=== PATIENT | male | born 1980 | race Hispanic/Latino ===

== ENCOUNTER 2017-02-28 10:40 | Emergency (ER) | payer SELFPAY | END 2017-02-28 13:16 | disposition home or self-care (01) | LOC: ERS 10:40 | DX: J06.9 Acute upper respiratory infection, unspecified (principal); R21 Rash and other nonspecific skin eruption; I10 Essential (primary) hypertension; Z87.442 Personal history of urinary calculi | CPT/HCPCS: 99283 ==

== ENCOUNTER 2017-09-07 21:49 | Emergency (ER) | payer SELFPAY ==
[2017-09-07] MEDS ORDERED: Labetalol HCl 100 MG/20 ML VIAL ONE (22:18)
[2017-09-07 22:37] LABS: #Basophils 0.1 thou/uL (0.0-0.2); #Eosinphils 0.3 thou/uL (0.0-0.7); #Lymphocytes 4.2 thou/uL (1.20-3.40); #Monocytes 0.9 thou/uL (0.11-0.59); #Neutrophils 9.9 thou/uL (1.40-6.50); %Basophils 0.7 % (0.0-1.0); %Eosinophils 1.7 % (0.0-10.0); %Lymphocytes 27.3 % (21.0-51.0); %Monocytes 5.8 % (0.0-10.0); %Neutrophils 64.6 % (42.0-75.0); Hemoglobin 15.9 g/dL (14.0-18.0); Mean Corpuscular HGB CONC 34.3 g/dL (32.0-36.0); Mean Corpuscular Hemoglobin 31.7 pg (27.0-31.0); Mean Corpuscular Volume 92.4 fL (78.0-98.0); Mean Platelet Volume 7.2 fL (7.4-10.4); Platelet Count 280 thou/uL (130-400); Red Blood Cell (RBC) Count 5.02 mill/uL (4.70-6.10); White Blood Cell (WBC) Count 15.4 thou/uL (4.8-10.8)
[2017-09-07 22:59] LABS: ALT (SGPT) 33 U/L (8-55); AST (SGOT) 24 U/L (5-34); Alkaline Phosphatase 61 U/L (40-150); Anion Gap 13 mmol/L (10-20); BUN (Urea Nitrogen) 11 mg/dL (8.9-20.6); Bilirubin, Total 0.6 mg/dL (0.2-1.2); Calc. Creatinine Clearance 0 mL/min (70-130); Calcium 9.3 mg/dL (7.8-10.44); Carbon Dioxide 25 mmol/L (22-29); Chloride 102 mmol/L (98-107); Estimated GFR-MDRD 65; Globulin 3.4 g/dL (2.4-3.5); Glucose 119 mg/dL (70-105); Protein, Total 7.4 g/dL (6.0-8.3); Sodium 137 mmol/L (136-145)
--- NOTE | 2017-09-07 23:01 | RAD ---
RADIOGRAPH RIGHT ELBOW 4 VIEWS: 09/07/17 HISTORY: 36-year-old male with traumatic right elbow pain after fall. FINDINGS: There is no fracture, dislocation, degenerative changes, displaced fat pad sign, or any osseous abnor mality. IMPRESSION: Normal. POS: CHELLE
[2017-09-07 23:11] LABS: CKMB 1.3 ng/mL (0-6.6)
--- NOTE | 2017-09-07 23:37 | CT ---
CT BRAIN NONCONTRAST: DATE: 09/07/17 HISTORY: 36-year-old male status post acute head trauma due to fall, due to syncope. FINDINGS: There is no midline shift or any other mass effect. There is no evidence of acute intracranial hemor rhage, large cortical infarct, obstructive hydrocephalus. The calvarium is intact. There is an incid ental finding of a jackeline cisterna magna. IMPRESSION: No acute intracranial findings. natty [] POS: CHELLE
[2017-09-07] MEDS ORDERED: Potassium Chloride 20 MEQ TAB ONE (23:49)
== END 2017-09-08 01:00 | disposition home or self-care (01) ==
LOC: ERS 21:49
DX: S50.01XA Contusion of right elbow, initial encounter (principal); E87.6 Hypokalemia; I10 Essential (primary) hypertension; R55 Syncope and collapse; W18.30XA Fall on same level, unspecified, initial encounter
CPT/HCPCS: 70450; 80053; 82553; 84484; 85025; 93005; 96361; 96374; 96375; J2270

== ENCOUNTER 2018-06-19 21:10 | Inpatient (IN) | payer SELFPAY ==
[2018-06-19] MEDS ORDERED: Morphine 2 MG/ML SYRINGE ONE (21:19)
[2018-06-19] MEDS ORDERED: Ondansetron PF 4 MG/2 ML Vial ONE ×2 (21:19→23:44)
[2018-06-19] MEDS ORDERED: Nitroglycerin 2% Ointment 1 INCH/1 GM Packet ONE (21:19)
[2018-06-19] MEDS ORDERED: Aspirin Chewable 81 MG TAB ONE (21:19)
[2018-06-19 21:35] LABS: Hemoglobin 17.1 g/dL (14.0-18.0); Mean Corpuscular HGB CONC 34.6 g/dL (32.0-36.0); Mean Corpuscular Hemoglobin 31.3 pg (27.0-31.0); Mean Corpuscular Volume 90.4 fL (78.0-98.0); Mean Platelet Volume 7.8 fL (7.4-10.4); Platelet Count 326 thou/uL (130-400); Red Blood Cell (RBC) Count 5.48 mill/uL (4.70-6.10); White Blood Cell (WBC) Count 16.8 thou/uL (4.8-10.8)
[2018-06-19 21:42] LABS: INR-International Normal Ratio 0.9; PTT 29.6 SEC (22.9-36.1); Prothrombin Time 12.5 SEC (12.0-14.7)
--- NOTE | 2018-06-19 21:43 | RAD ---
CHEST ONE VIEW: 06/19/18 HISTORY: Chest pain. STEMI alert. COMPARISON: Radiograph 09/15/14. FINDINGS: The lungs are mildly hypoinflated with vascular crowding. Heart size is mildly enlarged. No pneumotho rax. No acute displaced rib fractures. IMPRESSION: Mild lung hypoinflation. Defibrillator pad projects over the right hemithorax. POS: HOME
[2018-06-19 21:49] LABS: Lymphocytes 17 % (21-51); MDiff Complete? YES; Monocytes 2 % (0-10); Neutrophil 71 % (42-75); Platelet Morphology Comment Appears Adequate; RBC Morphology Normal; Reactive Lymphocytes 10 % (0-10)
[2018-06-19 21:59] LABS: ALT (SGPT) 27 U/L (8-55); AST (SGOT) 29 U/L (5-34); Albumin 4.4 g/dL (3.5-5.0); Alkaline Phosphatase 71 U/L (40-150); Anion Gap 13 mmol/L (10-20); BUN (Urea Nitrogen) 19 mg/dL (8.9-20.6); Bilirubin, Total 0.5 mg/dL (0.2-1.2); Calc. Creatinine Clearance 0 mL/min (70-130); Calcium 10.4 mg/dL (7.8-10.44); Carbon Dioxide 29 mmol/L (22-29); Chloride 104 mmol/L (98-107); Estimated GFR-MDRD 54; Globulin 3.6 g/dL (2.4-3.5); Glucose 102 mg/dL (70-105); Potassium 3.2 mmol/L (3.5-5.1); Sodium 143 mmol/L (136-145)
[2018-06-19] MEDS ORDERED: hydrALAZINE 20 MG/ML VIAL ONE (23:40)
[2018-06-20] MEDS ORDERED: Labetalol HCl 100 MG/20 ML VIAL ONE (00:16)
[2018-06-20] MEDS ORDERED: Labetalol 5 MG/ML SYRINGE (IV ROOM) SLOW IVP PRN (00:18)
[2018-06-20] MEDS ORDERED: hydrALAZINE 20 MG/ML VIAL SLOW IVP PRN ×3 (00:18→12:41)
[2018-06-20 01:01] LABS: Troponin I 0.649 ng/mL (< 0.028)
[2018-06-20] MEDS ORDERED: Ondansetron PF 4 MG/2 ML Vial IVP PRN ×2 (02:08→12:41)
[2018-06-20] MEDS ORDERED: Acetaminophen 325 MG TAB PO PRN (02:08)
[2018-06-20] MEDS ORDERED: Ondansetron ODT 4 MG TAB SL PRN (02:08)
[2018-06-20 02:23] VITALS: BMI 40.8
[2018-06-20] MEDS: Lorazepam 1 MG TAB PO PRN ×2 (03:02→14:34)
[2018-06-20 07:14] LABS: Troponin I 2.306 ng/mL (< 0.028)
[2018-06-20] MEDS ORDERED: NIFEdipine XL 60 MG TAB PO SCH (09:09)
[2018-06-20] MEDS ORDERED: Ondansetron ODT 4 MG TAB PO PRN (12:41)
[2018-06-20] MEDS ORDERED: Nitroglycerin 0.4 MG TAB (25 Tab Bottle) PO PRN (12:41)
[2018-06-20] MEDS ORDERED: Lisinopril 5 MG TAB PO SCH (13:00)
[2018-06-20] MEDS: Nitroglycerin 2% Ointment 1 INCH/1 GM Packet TOP SCH ×2 (14:35→21:42)
[2018-06-20] MEDS ORDERED: Diazepam 5 MG TAB PO SCH (15:30)
[2018-06-20] MEDS ORDERED: Communication Order-Pharmacy FS SCH (15:30)
[2018-06-20] MEDS ORDERED: Clopidogrel Bisulfate 300 MG TAB PO SCH (16:00)
--- NOTE | 2018-06-20 16:23 | CON ---
DATE OF CONSULTATION: 06/20/2018 REASON FOR CONSULTATION: Chest pain, increased troponin level. HISTORY OF PRESENT ILLNESS: Mr. Riggs is a very pleasant 37-year-old gentleman. He was working out. He started to have discomfort in his upper back and then came to his chest, felt like someone standing on his chest. The symptoms gradually worsened. He came here to the emergency room. He is severely hypertensive. He was given medicines to lower the blood pressure. While he is here, he has received labetalol, nitrates, as well as other beta-blockers. He is resting comfortably now, but did have an increased troponin level. Initially, it was thought that he had an ST-elevation myocardial infarction, but reviewing previous EKGs, looked unchanged. The patient does not smoke or use tobacco products. PAST MEDICAL HISTORY: He has taken blood pressure medicines in the past, but not recently. REVIEW OF SYSTEMS: CONSTITUTIONAL: No significant weight gain or loss. VISION: No changes. HEARING: No changes. PULMONARY: No cough or wheezing. GASTROINTESTINAL: No nausea, vomiting or diarrhea. SKIN: No rashes. NEUROLOGIC: No unilateral weakness or numbness. PSYCHIATRIC: No unusual depression or anxiety. HEMATOLOGIC: No unusual bruising. GENITOURINARY: No burning with urination. FAMILY HISTORY: Negative for heart disease at a young age. PHYSICAL EXAMINATION: GENERAL: This is a pleasant young man, resting comfortably, in no distress. VITAL SIGNS: He had had extremely high blood pressures here. Blood pressures have been recorded 249/120 and 250/140. NECK: Neck veins normal. Carotid, normal upstrokes. No bruits. LUNGS: Clear. No wheezing. CARDIAC: Normal S1, normal S2. There is no murmur, rub or gallop. ABDOMEN: Obese and nontender. EXTREMITIES: No clubbing or cyanosis or edema. He has good peripheral pulses. Strong posterior tibial and dorsalis pedis pulses. DIAGNOSTIC DATA: EKG, sinus rhythm, left ventricular hypertrophy with repolarization changes. PERTINENT LABORATORY DATA: Hemoglobin 17.1. The troponin peak was 2.3. ASSESSMENT: 1. Hypertensive emergency. 2. Chronically uncontrolled high blood pressure. Reviewed previous emergency room visits. He has extremely high blood pressures on all these visits. 3. Owg-HB-ymhtbursk infarction related to demand ischemia versus demand ischemia plus underlying coronary artery disease. 4. Renal insufficiency, estimated GFR is 54. PLAN: 1. He is to receive. a. Metoprolol. b. Nifedipine. c. Aspirin. 2. In view of the increased troponin, recommend cardiac catheterization for definitive test. Assessed risk of stroke, heart attack, iodine allergy, loss of blood supply to leg or kidney, stent thrombosis, stent restenosis. He understands and wished to proceed. Blood pressure is improved at 177/93. 3. We will recheck laboratory work tomorrow morning. Job ID: [id number]
[2018-06-20] MEDS: Acetaminophen 325 MG TAB PO PRN (16:55)
[2018-06-20] MEDS: Aspirin 325 mg Enteric Coated Tablet PO SCH (17:24)
[2018-06-20] MEDS ORDERED: Aspirin Chewable 81 MG TAB ONE (18:00)
--- NOTE | 2018-06-20 18:40 | HP ---
The patient's primary care is through the [facility]. CHIEF COMPLAINT: "I started having back pain yesterday." HISTORY OF PRESENT ILLNESS: Mr. Riggs is a very pleasant 37-year-old gentleman, who has a history of hypertension. He was in his usual state of health until yesterday evening. He had gone to the gym and was working out and got back home. Later on that evening, he says around 0845, he started feeling a hot feeling in his back, and he said he noticed it started to radiate to the front of his chest. He also noted that his heart was beating fast. He also got nauseated and was feeling dizzy off and on, and his symptoms did not go away, so that around later on that evening, he went to the emergency room. By that time, his pain in the back had gone up to about a 9/10. He says that they gave him some medications in the ER, and the pain went down to a 1/10. When I am seeing him this afternoon, he says that the pain has completely gone away. He says he has never had anything like this happened before. When he was in the emergency room, it was noted he had some EKG changes with some ST-segment depression inferiorly and some lateral ST-segment elevation, and his troponin at that time was slightly elevated, and he is being admitted for further recommendations. REVIEW OF SYSTEMS: All systems were reviewed and are negative except for that mentioned in the history of present illness. PAST MEDICAL HISTORY: Significant for hypertension and asthma. PAST SURGICAL HISTORY: He has had lithotripsy before. ALLERGIES: NO KNOWN DRUG ALLERGIES. SOCIAL HISTORY: He is , has 2 children. He drinks about 8 to 9 beers a week. Denies any tobacco use or any smoking. FAMILY HISTORY: Significant for hypertension and diabetes mellitus. His mother has a history of coronary artery disease and had a stent placed. There are also numerous aunts and uncles on his mother's side, who had coronary artery disease and bypass surgery. CURRENT MEDICATIONS: Include lisinopril and hydrochlorothiazide. PHYSICAL EXAMINATION: GENERAL: He is alert and oriented. He appears to be in no acute distress. He is well developed and well nourished. He is obese. His height is 5 feet 6 inches, and he weighs 253 pounds. BMI was 40.9. HEENT: Pupils are equal, round, and reactive to light. Extraocular muscles are intact. Sclerae are anicteric. Throat; no erythema, no exudates. NECK: No adenopathy. No bruits. LUNGS: Clear to auscultation. There is no wheezing. No rales. No rhonchi. CARDIOVASCULAR: He had normal S1 and S2. There is no S3 or S4. No murmurs, clicks, or rubs. ABDOMEN: Obese. It is soft, nontender, and nondistended. Positive for bowel sounds. There is no rebound. No guarding. No organomegaly. EXTREMITIES: There is no clubbing or cyanosis. No edema. No calf tenderness. No joint effusions. NEUROLOGIC: Essentially nonfocal. SKIN AND INTEGUMENT: No skin changes. No rash. LABORATORY RESULTS: Sodium was 143, potassium 3.2, chloride is 104, CO2 is 29, BUN of 19, creatinine of 1.46, glucose is 102. White blood cell count was 16.8, hemoglobin 17.1, hematocrit is 49.5, platelet count was 326. INR 0.9. On his EKG, again he had ST-segment depression in leads II, III, and aVF as well as some ST-segment elevation in leads V1 and V2. ASSESSMENT: 1. This is a pleasant 37-year-old gentleman, who presents with back pain as well as diaphoresis and shortness of breath. He has some EKG changes suspicious for an acute myocardial infarction, and his troponin was slightly elevated. He will be admitted to telemetry. We will start him on aspirin, nitrates, and beta-blockers as tolerated. Cardiology had already been consulted from the ER, and an echocardiogram has been ordered. We will also check a lipid panel, and further recommendations to follow with regard to the EKG changes. 2. Hypertension. His blood pressure is currently poorly controlled. We will start him back on an RONI inhibitor in addition to what has already been started as well as p.r.n. medications. Job ID: [id number]
[2018-06-20] MEDS: Metoprolol Tartrate 25 MG TAB PO SCH (21:42)
[2018-06-20] MEDS: Atorvastatin Calcium 40 MG TAB PO SCH (21:42)
[2018-06-20] MEDS: Famotidine 20 MG TAB PO SCH (21:42)
[2018-06-21] MEDS: Famotidine 20 MG TAB PO SCH ×2 (04:49→19:44)
[2018-06-21] MEDS: Metoprolol Tartrate 25 MG TAB PO SCH ×2 (04:49→19:44)
[2018-06-21] MEDS: NIFEdipine XL 60 MG TAB PO SCH (04:49)
[2018-06-21] MEDS: Nitroglycerin 2% Ointment 1 INCH/1 GM Packet TOP SCH ×2 (04:50→14:36)
[2018-06-21] MEDS: Sodium Chloride 0.9% 1,000 ML IV SCH ×2 (05:28→14:36)
[2018-06-21 06:06] LABS: Anion Gap 11 mmol/L (10-20); BUN (Urea Nitrogen) 14 mg/dL (8.9-20.6); Calc. Creatinine Clearance 131 mL/min (70-130); Calcium 9.7 mg/dL (7.8-10.44); Carbon Dioxide 30 mmol/L (22-29); Cardiac Risk 4.2 (Less than 4.5); Chloride 104 mmol/L (98-107); Cholesterol 178 mg/dl (< 200 Desired); Estimated GFR-MDRD 66; Glucose 96 mg/dL (70-105); HDL Cholesterol 42 mg/dL (>60 Neg Risk); LDL Cholesterol, Calculated 123 mg/dL; Potassium 3.5 mmol/L (3.5-5.1); Sodium 141 mmol/L (136-145); Triglycerides 64 mg/dL (Less than 150)
[2018-06-21] MEDS ORDERED: Midazolam HCl 2 mg/2 ml Vial ONE (08:42)
[2018-06-21] MEDS ORDERED: Fentanyl 100 MCG/2 ML VIAL ONE (08:42)
[2018-06-21] MEDS ORDERED: NIFEdipine XL 60 MG TAB PO SCH (09:00)
[2018-06-21] MEDS ORDERED: Lisinopril 5 MG TAB PO SCH (09:00)
[2018-06-21] MEDS ORDERED: Ondansetron PF 4 MG/2 ML Vial ONE (09:02)
[2018-06-21] MEDS ORDERED: Atropine Sulfate 1 mg/1 ml Vial ONE (09:03)
[2018-06-21] MEDS ORDERED: Atropine Sulfate 1 mg/10 ml Syringe ONE (09:05)
[2018-06-21] MEDS ORDERED: Sodium Chloride 0.9% 200 ML IV PRN (09:40)
[2018-06-21] MEDS ORDERED: Acetaminophen/Codeine 30-300mg Tablet PO PRN ×2 (09:40)
[2018-06-21] MEDS ORDERED: Nitroglycerin 0.4 MG TAB (25 Tab Bottle) SL PRN (09:40)
[2018-06-21] MEDS ORDERED: Iopamidol 370 76% 100 ML VIAL ONE (10:20)
[2018-06-21] MEDS: Acetaminophen 325 MG TAB PO PRN ×2 (11:50→18:52)
--- NOTE | 2018-06-21 15:28 | PDOC.PN ---
- Subjective Encounter Start Date: 06/21/18 Encounter Start Time: 15:27 Mr. Riggs was seen today in follow-up of NSTEMI. He says he is feeling better. He denies having any chest pain. He denies back pain or dyspnea. - Objective Resuscitation Status - Order Detail: 06/20/18 12:37 Resuscitation Status Routine Resuscitation Status: FULL: Full Resuscitation MAR Reviewed: Yes Vital Signs & Weight: Vital Signs (12 hours) Temp Pulse Resp BP BP BP Pulse Ox 06/21/18 11:42 98.2 F 73 18 152/72 H 96 06/21/18 10:05 98.0 F 67 18 135/74 135/74 96 06/21/18 09:41 97 06/21/18 07:27 98.3 F 72 20 142/80 H 96 06/21/18 04:49 80 06/21/18 04:19 97.5 F L 80 16 126/76 95 Weight Admit Weight 253 lb 4.8 oz Weight 253 lb 4.8 oz I&O: 06/20/18 06/21/18 06/22/18 06:59 06:59 06:59 Intake Total 100 620 Output Total 250 1000 Balance -150 -380 Result Diagrams: 06/19/18 21:26 06/21/18 04:45 Phys Exam - Physical Examination HEENT: PERRLA Respiratory: no wheezing, no rales, no rhonchi, clear to auscultation bilateral Cardiovascular: RRR, no significant murmur, no rub Gastrointestinal: soft, non-tender, no distention, positive bowel sounds Musculoskeletal: no edema Dx/Plan (1) NSTEMI (non-ST elevated myocardial infarction) Code(s): I21.4 - NON-ST ELEVATION (NSTEMI) MYOCARDIAL INFARCTION Status: Acute (2) Hypertension Code(s): I10 - ESSENTIAL (PRIMARY) HYPERTENSION Status: Chronic (3) Obesity, Class III, BMI 40-49.9 (morbid obesity) Code(s): E66.01 - MORBID (SEVERE) OBESITY DUE TO EXCESS CALORIES Status: Chronic - Plan * NSTEMI- the patient's cath results were noted * Await further recommendations from Cardiology * HTN- blood pressure is better controlled * Dyslipidemia- continue Lipitor.
[2018-06-21] MEDS: Aspirin 325 mg Enteric Coated Tablet PO SCH (16:47)
[2018-06-21] MEDS: Atorvastatin Calcium 40 MG TAB PO SCH (19:44)
[2018-06-22] MEDS: NIFEdipine XL 60 MG TAB PO SCH (05:41)
[2018-06-22 07:11] VITALS: TEMP 98.2
[2018-06-22] MEDS ORDERED: Lisinopril 10 MG TAB PO SCH (09:00)
[2018-06-22] MEDS ORDERED: Clopidogrel Bisulfate 75 MG TAB PO SCH (09:00)
--- NOTE | 2018-06-22 09:02 | PRG ---
DATE OF SERVICE: 06/22/2018 SUBJECTIVE: Mr. Riggs is doing well. No further chest pain or pressure. OBJECTIVE: VITAL SIGNS: His blood pressure is 160/99, earlier was 143/89 and pulse 64. LUNGS: Clear. CARDIAC: Normal S1, normal S2. LABORATORY DATA: Pertinent laboratories; LDL was 123 on the 11th after being in the hospital a couple of days, potassium is 3.5 yesterday and the creatinine had improved to 1.23. ASSESSMENT: 1. Status post non ST elevation myocardial infarction. Peak troponin 2.306. 2. Hypercholesterolemia. 3. Severe hypertension. 4. Renal insufficiency, improved. 5. Cardiac catheterization, medical therapy, most appropriate at this time. PLAN: 1. The patient is on aspirin 325 mg a day. 2. Clopidogrel 75 mg a day. 3. Atorvastatin 40 mg a day. 4. Lisinopril 10 mg a day. 5. Metoprolol tartrate 25 mg twice a day. 6. Procardia XL 60 mg a day, dose could be increased if needed to 90 if needed for blood pressure control. 7. The patient initially came to the hospital with hypertensive urgency/emergency and chest pain. Did have increased troponin levels, but had an extremely high blood pressure as is outlined in the chart. Cardiac catheterization revealed the LAD looks like about a 60-65% lesion with a diagonal branch at the ostium in the same location 90% that was probably the source of the non ST elevation infarction of the diagonal branch. Medical therapy at this time. If continues to have angina, consideration for stenting of the LAD could be given, but almost certainly this would occlude the diagonal branch. Medical therapy should be the strategy at this point. Incidentally, the patient did have a vagal episode while placing the sheath yesterday, but tolerated the cardiac catheterization otherwise well. Job ID: [id number]
[2018-06-22] MEDS: Famotidine 20 MG TAB PO SCH (09:13)
[2018-06-22] MEDS: Metoprolol Tartrate 25 MG TAB PO SCH (09:13)
[2018-06-22 12:16] VITALS: BP 143/89
--- NOTE | 2018-06-22 14:22 | PDOC.PN ---
- Subjective Encounter Start Date: 06/22/18 Encounter Start Time: 14:20 Mr. Rincon was seen today in follow-up of NSTEMI. He does not have any complaints this AM. He denies chest pain or shortness of breath. - Objective Resuscitation Status - Order Detail: 06/20/18 12:37 Resuscitation Status Routine Resuscitation Status: FULL: Full Resuscitation MAR Reviewed: Yes Vital Signs & Weight: Vital Signs (12 hours) Temp Pulse Resp BP BP Pulse Ox 06/22/18 12:13 71 20 143/89 H 99 06/22/18 07:08 98.2 F 65 18 160/99 H 96 06/22/18 05:41 63 06/22/18 04:20 97.6 F 63 18 143/89 H 96 Weight Admit Weight 253 lb 4.8 oz Weight 253 lb 4.8 oz I&O: 06/21/18 06/22/18 06/23/18 06:59 06:59 06:59 Intake Total 620 1720 Output Total 1000 1550 Balance -380 170 Result Diagrams: 06/19/18 21:26 06/21/18 04:45 Phys Exam - Physical Examination HEENT: PERRLA Respiratory: no wheezing, no rales, no rhonchi, clear to auscultation bilateral Cardiovascular: RRR, no significant murmur, no rub Gastrointestinal: soft, non-tender, no distention, positive bowel sounds Musculoskeletal: no edema Dx/Plan (1) NSTEMI (non-ST elevated myocardial infarction) Code(s): I21.4 - NON-ST ELEVATION (NSTEMI) MYOCARDIAL INFARCTION Status: Acute (2) Hypertension Code(s): I10 - ESSENTIAL (PRIMARY) HYPERTENSION Status: Chronic (3) Obesity, Class III, BMI 40-49.9 (morbid obesity) Code(s): E66.01 - MORBID (SEVERE) OBESITY DUE TO EXCESS CALORIES Status: Chronic - Plan * NSTEMI- clinically improved * He is stable for discharge home.
--- NOTE | 2018-06-23 12:41 | DIS ---
DATE OF ADMISSION: 06/20/2018 DATE OF DISCHARGE: 06/22/2018 PRIMARY CARE: At the [facility]. DISCHARGE DISPOSITION: Home. PRIMARY DISCHARGE DIAGNOSES: 1. Non-ST segment elevation myocardial infarction. 2. Hypertensive urgency. 3. Hypertension. 4. Dyslipidemia. 5. Morbid obesity. DISCHARGE MEDICATIONS: Include; 1. Nitrostat 0.4 mg sublingual p.r.n. 2. Procardia XL 60 mg daily. 3. Metoprolol 25 mg twice daily. 4. Lisinopril 10 mg daily. 5. Plavix 75 mg daily. 6. Lipitor 40 mg at bedtime. 7. Aspirin 325 mg daily. PROCEDURES: Procedures done during the admission: The patient had a cardiac catheterization and this revealed a 60% stenosis of the LAD, 90% stenosis of the first diagonal, and 100% stenosis of the mid circumflex. He had a normal ejection fraction. The patient also had an echocardiogram, in which the ejection fraction was estimated at 55% to 60%. There was moderate to severe concentric left ventricular hypertrophy. The left atrium was [id number] dilated. There was some mild aortic stenosis. CODE STATUS: Full code. ALLERGIES: NO KNOWN DRUG ALLERGIES. HOSPITAL COURSE: Mr. Riggs is a pleasant 37-year-old gentleman, who presented to the emergency room, complaining of severe back pain and burning after he was doing some exercise at the gym. He said the symptoms got progressively worse and then sought medical attention. He was brought in due to concerns for possible anginal equivalent and his troponin began to trend upward. He was found to have a non ST-segment [place], and Cardiology was consulted. He underwent cardiac catheterization, showing some moderate 3-vessel disease. It was recommended that he be treated medically, and dietary changes and exercise were discussed as well as management of blood pressure as this was noted to be quite elevated initially. He was then placed on Procardia and metoprolol as well as lisinopril. His blood pressure improved down to 143/89 and 135/74, and he was able to be subsequently discharged home, to have close outpatient followup and to see Dr. Simental in 1 month. Job ID: [id number]
--- NOTE | 2018-06-23 15:37 | EKG ---
Test Reason : Blood Pressure : / mmHG Vent. Rate : 094 BPM Atrial Rate : 094 BPM P-R Int : 166 ms QRS Dur : 090 ms QT Int : 356 ms P-R-T Axes : 039 020 -46 degrees QTc Int : 445 ms Normal sinus rhythm Anteroseptal infarct , possibly acute T wave abnormality, consider inferior ischemia ACUTE UT / STEMI Abnormal ECG ST elevation/UT called at 21:17 Confirmed by MONICA MCADAMS ([id number]), book or script editor LUKAS LUQUE ([id number]) on 06/23/2018 3:36:53 PM Referred By: Confirmed By:MONICA MCADAMS
--- NOTE | 2018-06-23 15:38 | EKG ---
Test Reason : Blood Pressure : / mmHG Vent. Rate : 102 BPM Atrial Rate : 102 BPM P-R Int : 180 ms QRS Dur : 100 ms QT Int : 374 ms P-R-T Axes : 060 024 139 degrees QTc Int : 487 ms Sinus tachycardia Marked ST abnormality, possible inferior subendocardial injury Abnormal ECG Improvement of ischemic changes from previous EKG today Confirmed by OMNICA MCADAMS ([id number]), magazine editor LUKAS LUQUE ([id number]) on 06/23/2018 3:37:46 PM Referred By: Confirmed By:MONICA MCADAMS
== END 2018-06-22 13:17 | disposition home or self-care (01) | DRG 281 ==
LOC: ERS 21:10 → 2NO 21:55
PROVIDERS: ADMIT Family Medicine; ATTEND Family Medicine
PROC: 4A023N7 Measurement of Cardiac Sampling and Pressure, Left Heart, Percutaneous Approach (ICD-10-PCS; principal; 2018-06-21)
PROC: B2151ZZ Fluoroscopy of Left Heart using Low Osmolar Contrast (ICD-10-PCS; 2018-06-21)
PROC: B2111ZZ Fluoroscopy of Multiple Coronary Arteries using Low Osmolar Contrast (ICD-10-PCS; 2018-06-21)
DX: I21.4 Non-ST elevation (NSTEMI) myocardial infarction (principal); I16.1 Hypertensive emergency; Z68.41 Body mass index [BMI] 40.0-44.9, adult; I10 Essential (primary) hypertension; J45.909 Unspecified asthma, uncomplicated; E78.00 Pure hypercholesterolemia, unspecified; N28.9 Disorder of kidney and ureter, unspecified; E66.01 Morbid (severe) obesity due to excess calories; I16.0 Hypertensive urgency; Z79.899 Other long term (current) drug therapy
CPT/HCPCS: 36415; 71045; 76942; 80048; 80053; 80061; 84484; 85025; 85610; 85730; 93005; 93306; 93458; 93798; 94760; 96374; 96375; 99152; 99153; C1769; J0360; J0461; J1644; J2250; J2270; J2405; J3010; Q0162; Q9967

== ENCOUNTER 2018-10-23 19:16 | Emergency (ER) | payer SELFPAY ==
--- NOTE | 2018-10-23 20:01 | RAD ---
XR Chest 1 View Portable HISTORY: Syncope COMPARISON: 06/19/2018 study FINDINGS: Heart size is enlarged. The lungs are clear of infiltrates. No signs of failure. No bony fi ndings. IMPRESSION: Minimal cardiomegaly considering portable technique.
[2018-10-23 20:15] LABS: #Basophils 0.1 thou/uL (0.0-0.2); #Eosinphils 0.2 thou/uL (0.0-0.7); #Lymphocytes 5.2 thou/uL (1.20-3.40); #Monocytes 0.9 thou/uL (0.11-0.59); %Basophils 0.6 % (0.0-1.0); %Eosinophils 1.3 % (0.0-10.0); %Lymphocytes 33.8 % (21.0-51.0); %Monocytes 5.9 % (0.0-10.0); %Neutrophils 58.4 % (42.0-75.0); Hemoglobin 17.7 g/dL (14.0-18.0); Mean Corpuscular HGB CONC 34.9 g/dL (32.0-36.0); Mean Corpuscular Hemoglobin 31.8 pg (27.0-31.0); Mean Platelet Volume 6.9 fL (7.4-10.4); Platelet Count 319 thou/uL (130-400); RBC Distribution Width 14.1 % (11.5-14.5); Red Blood Cell (RBC) Count 5.56 mill/uL (4.70-6.10); White Blood Cell (WBC) Count 15.4 thou/uL (4.8-10.8)
[2018-10-23] MEDS ORDERED: cloNIDine 0.1 MG TAB ONE (20:33)
[2018-10-23] MEDS ORDERED: Aspirin 325 MG TAB ONE (20:33)
[2018-10-23 20:38] LABS: ALT (SGPT) 24 U/L (8-55); AST (SGOT) 24 U/L (5-34); Albumin 4.8 g/dL (3.5-5.0); Alkaline Phosphatase 89 U/L (40-150); Anion Gap 17 mmol/L (10-20); BUN (Urea Nitrogen) 11 mg/dL (8.9-20.6); Bilirubin, Total 0.6 mg/dL (0.2-1.2); CK (CPK) 154 U/L (30-200); Calc. Creatinine Clearance 0 mL/min (70-130); Calcium 10.3 mg/dL (7.8-10.44); Carbon Dioxide 20 mmol/L (22-29); Chloride 105 mmol/L (98-107); Estimated GFR-MDRD 69; Glucose 96 mg/dL (70-105); Lipase 59 U/L (8-78); Potassium 3.3 mmol/L (3.5-5.1); Protein, Total 8.8 g/dL (6.0-8.3); Sodium 139 mmol/L (136-145)
== END 2018-10-23 21:53 | disposition left against medical advice (07) ==
LOC: ERS 19:16
DX: R07.9 Chest pain, unspecified (principal); I25.10 Atherosclerotic heart disease of native coronary artery without angina pectoris; I10 Essential (primary) hypertension; I25.2 Old myocardial infarction; Z79.82 Long term (current) use of aspirin; Z79.899 Other long term (current) drug therapy; Z79.01 Long term (current) use of anticoagulants
CPT/HCPCS: 71045; 80053; 82550; 83690; 83735; 84484; 85025; 93005

== ENCOUNTER 2018-10-24 18:18 | Observation (INO) | payer SELFPAY ==
[~2018-10-24 18:18] MED LIST: ISOVUE-370 76%-LOCM 1 ML ONE
[2018-10-24 18:45] LABS: #Basophils 0.1 thou/uL (0.0-0.2); #Eosinphils 0.1 thou/uL (0.0-0.7); #Lymphocytes 3.8 thou/uL (1.20-3.40); #Neutrophils 8.9 thou/uL (1.40-6.50); %Basophils 0.5 % (0.0-1.0); %Eosinophils 0.7 % (0.0-10.0); %Lymphocytes 27.2 % (21.0-51.0); %Monocytes 7.3 % (0.0-10.0); %Neutrophils 64.3 % (42.0-75.0); Hemoglobin 16.9 g/dL (14.0-18.0); Mean Corpuscular HGB CONC 35.4 g/dL (32.0-36.0); Mean Corpuscular Hemoglobin 32.1 pg (27.0-31.0); Mean Corpuscular Volume 90.6 fL (78.0-98.0); Mean Platelet Volume 6.6 fL (7.4-10.4); Platelet Count 313 thou/uL (130-400); RBC Distribution Width 13.9 % (11.5-14.5); Red Blood Cell (RBC) Count 5.26 mill/uL (4.70-6.10); White Blood Cell (WBC) Count 13.9 thou/uL (4.8-10.8)
[2018-10-24 19:10] LABS: ALT (SGPT) 22 U/L (8-55); AST (SGOT) 18 U/L (5-34); Albumin 4.3 g/dL (3.5-5.0); Alkaline Phosphatase 81 U/L (40-150); Anion Gap 14 mmol/L (10-20); BUN (Urea Nitrogen) 14 mg/dL (8.9-20.6); Bilirubin, Total 0.6 mg/dL (0.2-1.2); CK (CPK) 122 U/L (30-200); Calc. Creatinine Clearance 0 mL/min (70-130); Calcium 9.8 mg/dL (7.8-10.44); Carbon Dioxide 20 mmol/L (22-29); Chloride 107 mmol/L (98-107); Estimated GFR-MDRD 75; Globulin 3.5 g/dL (2.4-3.5); Glucose 105 mg/dL (70-105); Lipase 116 U/L (8-78); Potassium 3.3 mmol/L (3.5-5.1); Protein, Total 7.8 g/dL (6.0-8.3); Sodium 138 mmol/L (136-145)
--- NOTE | 2018-10-24 19:55 | RAD ---
PORTABLE CHEST: 10/24/18 PROVIDED CLINICAL HISTORY: Chest pain. FINDINGS: Comparison 10/23/18. Cardiac silhouette appears prominent which may be at least partially on the basis of portable techniq ue. No focal consolidation, pleural fluid, or pneumothorax apparent. IMPRESSION: No evidence for an acute cardiopulmonary process. POS: NAVNEET
--- NOTE | 2018-10-24 20:09 | CT ---
CTA Angio Chest W WO Con HISTORY: Chest pain and shortness of breath. History of MA. COMPARISON: None. FINDINGS: The lungs are clear of infiltrates. No signs of pleural effusion or failure. No significant mediastinal or hilar adenopathy. The thoracic aorta is normal in caliber. There is fairly good pulmonary artery opacification and no C T evidence for pulmonary embolus. Visualized liver parenchyma shows no focal findings. IMPRESSION: No CT evidence for pulmonary embolus.
[2018-10-24] MEDS ORDERED: Aspirin 325 MG TAB ONE (20:10)
[2018-10-24 22:24] LABS: Cardiac Risk 3.2 (Less than 4.5)
[2018-10-25] MEDS ORDERED: Acetaminophen 325 MG TAB PO PRN (00:04)
[2018-10-25 00:05] VITALS: BMI 39.2
[2018-10-25 01:35] LABS: Troponin I Less than 0.010 ng/mL (< 0.028)
[2018-10-25] MEDS ORDERED: NIFEdipine XL 90 MG TAB PO SCH (09:00)
[2018-10-25] MEDS ORDERED: Ezetimibe 10 MG TAB PO SCH (09:00)
[2018-10-25] MEDS ORDERED: Clopidogrel Bisulfate 75 MG TAB PO SCH (09:00)
[2018-10-25 09:04] LABS: #Basophils 0.1 thou/uL (0.0-0.2); #Eosinphils 0.2 thou/uL (0.0-0.7); #Lymphocytes 3.5 thou/uL (1.20-3.40); #Monocytes 0.9 thou/uL (0.11-0.59); #Neutrophils 7.6 thou/uL (1.40-6.50); %Eosinophils 1.3 % (0.0-10.0); %Lymphocytes 28.5 % (21.0-51.0); %Monocytes 7.3 % (0.0-10.0); %Neutrophils 61.9 % (42.0-75.0); Hemoglobin 16.9 g/dL (14.0-18.0); Mean Corpuscular HGB CONC 33.4 g/dL (32.0-36.0); Mean Corpuscular Hemoglobin 30.7 pg (27.0-31.0); Platelet Count 294 thou/uL (130-400); RBC Distribution Width 14.2 % (11.5-14.5); White Blood Cell (WBC) Count 12.2 thou/uL (4.8-10.8)
[2018-10-25 09:18] LABS: ALT (SGPT) 17 U/L (8-55); AST (SGOT) 19 U/L (5-34); Albumin 4.2 g/dL (3.5-5.0); Alkaline Phosphatase 80 U/L (40-150); Anion Gap 15 mmol/L (10-20); BUN (Urea Nitrogen) 15 mg/dL (8.9-20.6); Bilirubin, Total 0.7 mg/dL (0.2-1.2); Calc. Creatinine Clearance 122 mL/min (70-130); Carbon Dioxide 23 mmol/L (22-29); Chloride 106 mmol/L (98-107); Estimated GFR-MDRD 63; Globulin 3.5 g/dL (2.4-3.5); Glucose 94 mg/dL (70-105); Potassium 3.8 mmol/L (3.5-5.1); Protein, Total 7.7 g/dL (6.0-8.3); Sodium 140 mmol/L (136-145)
[2018-10-25] MEDS ORDERED: Lisinopril 20 MG TAB PO SCH (09:45)
[2018-10-25] MEDS ORDERED: Aspirin 325 mg Enteric Coated Tablet PO SCH (09:45)
[2018-10-25] MEDS ORDERED: Lorazepam 0.5 MG TAB PO PRN (10:00)
--- NOTE | 2018-10-25 10:18 | ULT ---
RIGHT UPPER QUADRANT ULTRASOUND: HISTORY: Right upper quadrant pain, elevated lipase, high kidney stones. FINDINGS: The liver demonstrates increased echogenicity consistent with fatty infiltration. No shadowing galls tones are seen. There is a small amount of echogenic sludge in the gallbladder without gallbladder w all thickening or pericholecystic fluid. The common duct measures 3 mm in diameter. The pancreas is not well visualized due to overlying bowel gas. No right-sided hydronephrosis is seen. There is a 1.9 cm shadowing calculus in the right kidney. No free fluid is seen in the Morison's pouch. IMPRESSION: 1. Fatty liver. 2. Gallbladder sludge. 3. Nonobstructing right renal calculus. POS: TPC
--- NOTE | 2018-10-25 10:40 | CON ---
DATE OF CONSULTATION: 10/25/2018 HISTORY OF PRESENT ILLNESS: Mr. Riggs is a very pleasant 37-year-old gentleman. The patient came in last night with shortness of breath, feeling of anxiety, and hypertension. Mr. Riggs initially presented with chest pain in June. At that time, the patient was very hypertensive and did have an increased troponin level. At that time, the troponin went up to 2.3. The patient underwent cardiac catheterization and it revealed the following; 1. Left main normal. 2. LAD proximally 50% proximal and then a 50% to 60% lesion in his LAD more distally still in the proximal segment. 3. A diagonal branch with a critical lesion at the ostium not amenable to percutaneous therapy that was thought to be the source of his non-ST elevation infarction. 4. Otherwise, no obstructive disease. 5. Normal left ventricular ejection fraction. The patient has been treated with medical therapy. He said ever since June he has had a lot of anxiety whenever he stops and thinks about things, he gets progressively more anxious, sometimes get numbness in his hands. Yesterday, he said he became more anxious during the entire day. Finally, after prolonged episode of anxiety, he had some chest discomfort, took nitroglycerin and the pain went away promptly. He came here to the emergency room. He was found to be hypertensive. SOCIAL HISTORY: Does not use alcohol or tobacco. MEDICATIONS: He is taking; 1. Atorvastatin 40 mg a day. 2. Aspirin. 3. Plavix. 4. Lisinopril 10 mg a day. 5. Procardia XL 60 mg a day. 6. Toprol-XL 25 mg twice a day. ALLERGIES: NONE KNOWN. PHYSICAL EXAMINATION: GENERAL: On examination, this is a pleasant gentleman, still somewhat apprehensive. VITAL SIGNS: His blood pressure late last night was 168/105, sometimes he got 110 diastolics. Pulse is 50s to 60s, sinus. LUNGS: Clear. CARDIAC: Normal S1. Normal S2. ABDOMEN: Soft and nontender. EXTREMITIES: No clubbing or cyanosis. There is no edema. LABORATORY DATA: Cardiac enzymes were negative. EKG did not show any acute changes. LDL cholesterol still above the target of 85, previously had been 123. Cardiac catheterization films reviewed. There are findings as outlined above. ASSESSMENT: 1. Recurrent anxiety. 2. Coronary artery disease, thought to be best treated medically. 3. Hypertension, still not well controlled. 4. Hyperlipidemia with LDL still above the target. PLAN: 1. Increase blood pressure medicines. 2. Increase statin therapy or add Zetia to further lower this lipid profile. 3. I would not do any intervention on his LAD without a flow wire. It looks more likely that his discomfort was related to the diagonal branch, although initial treatment should be increasing medical therapy. Job ID: [id number]
[2018-10-25 12:42] VITALS: BP 142/78; TEMP 98.4
[2018-10-25] MEDS ORDERED: Atorvastatin Calcium 40 MG TAB PO SCH (21:00)
[2018-10-26] MEDS ORDERED: Aspirin 325 mg Enteric Coated Tablet PO SCH (09:00)
[2018-10-26] MEDS ORDERED: Lisinopril 20 MG TAB PO SCH (09:00)
== END 2018-10-25 12:56 | disposition home or self-care (01) ==
LOC: ERS 18:18 → 2SW 21:50
PROVIDERS: ADMIT Family Medicine; ATTEND Family Medicine
DX: R07.9 Chest pain, unspecified (principal); R06.02 Shortness of breath; N20.0 Calculus of kidney; K76.0 Fatty (change of) liver, not elsewhere classified; K82.8 Other specified diseases of gallbladder; I10 Essential (primary) hypertension; F41.9 Anxiety disorder, unspecified; I25.10 Atherosclerotic heart disease of native coronary artery without angina pectoris; E78.5 Hyperlipidemia, unspecified; Z79.82 Long term (current) use of aspirin; Z79.899 Other long term (current) drug therapy
CPT/HCPCS: 36415; 71045; 71275; 76705; 80053; 80061; 82550; 83690; 84484; 85025; 93005; G0378; Q9966

== ENCOUNTER 2019-09-18 01:26 | Inpatient (IN) | payer SELFPAY, OTHER ==
[2019-09-18 01:49] LABS: Hemoglobin 17.2 g/dL (14.0-18.0); Mean Corpuscular HGB CONC 34.1 g/dL (32.0-36.0); Mean Corpuscular Hemoglobin 31.4 pg (27.0-31.0); Mean Corpuscular Volume 92.1 fL (78.0-98.0); Mean Platelet Volume 7.5 fL (7.4-10.4); Platelet Count 302 thou/uL (130-400); RBC Distribution Width 13.7 % (11.5-14.5); Red Blood Cell (RBC) Count 5.48 mill/uL (4.70-6.10)
[2019-09-18] MEDS ORDERED: niCARdipine 20MG In NaCl 20 MG/200 ML BAG ONE (02:00)
[2019-09-18] MEDS ORDERED: Nitroglycerin 50 MG/250 ML BOT 250 ML ONE (02:01)
[2019-09-18 02:08] LABS: Eosinophils 1 % (0-10); Lymphocytes 49 % (21-51); MDiff Complete? YES; Neutrophil 43 % (42-75); Reactive Lymphocytes 7 % (0-10)
[2019-09-18] MEDS ORDERED: Lorazepam 2 MG/ML VIAL ONE (02:13)
[2019-09-18] MEDS ORDERED: Heparin 10,000 UNITS/1 ML VIAL ONE (02:24)
[2019-09-18] MEDS ORDERED: Nitroglycerin 100MG/250ML BOT 0 ML ONE (02:26)
[2019-09-18] MEDS ORDERED: Ondansetron PF 4 MG/2 ML Vial ONE (02:26)
[2019-09-18] MEDS ORDERED: Bivalirudin 250 MG VIAL ONE (02:27)
[2019-09-18 02:39] LABS: CKMB 1.8 ng/mL (0-6.6)
[2019-09-18 02:52] LABS: Albumin 4.3 g/dL (3.5-5.0)
[2019-09-18 02:54] LABS: Calcium 9.4 mg/dL (7.8-10.44); Chloride 103 mmol/L (98-107); Sodium 140 mmol/L (136-145)
[2019-09-18 02:55] LABS: Globulin 3.4 g/dL (2.4-3.5); Glucose 144 mg/dL (70-105); Protein, Total 7.7 g/dL (6.0-8.3)
[2019-09-18 02:56] LABS: Anion Gap 15 mmol/L (10-20); Carbon Dioxide 25 mmol/L (22-29)
[2019-09-18 02:57] LABS: Bilirubin, Total 0.4 mg/dL (0.2-1.2)
[2019-09-18 02:58] LABS: Alkaline Phosphatase 69 U/L (40-110); Calc. Creatinine Clearance 0 mL/min (70-130); Estimated GFR-MDRD 65
[2019-09-18 02:59] LABS: BUN (Urea Nitrogen) 12 mg/dL (8.9-20.6)
[2019-09-18 03:00] LABS: AST (SGOT) 26 U/L (5-34)
[2019-09-18 03:01] LABS: ALT (SGPT) 36 U/L (8-55); CK (CPK) 177 U/L (30-200)
--- NOTE | 2019-09-18 07:02 | HP ---
REASON FOR ADMISSION: Chest pain. HISTORY OF PRESENT ILLNESS: This is a 38-year-old male patient with previous history of LA and had a cardiac cath that showed coronary artery disease, but there was no lesion amenable to stenting. He presents today with acute onset of chest pain localized in the left parasternal area, described as pressure-like in nature, severe in intensity, occurring at rest, not associated with shortness of breath. In the ER, he was found to be in hypertensive emergency, the patient did mention that he has not been taking his medications for the past 2 weeks, and he did not give any obvious reason for that. The patient was initially started on nitroglycerin drip and also nicardipine drip as the blood pressure did drop to around systolic of 120 with these drips were stopped. He is currently on heparin drip and he is chest pain free. When I went to see him, he was sound asleep, appeared to be very comfortable. The ER physician did notify Cardiology and the patient is most likely planned to undergo a cardiac cath. PAST MEDICAL HISTORY: 1. High blood pressure. 2. Coronary artery disease. 3. Kidney stones. SOCIAL HISTORY: The patient drinks socially. He is a former drug user. He still uses marijuana. He has no smoking history. REVIEW OF SYSTEMS: All systems reviewed except the above mentioned, found to be negative. PHYSICAL EXAMINATION: GENERAL: He is awake, alert, oriented, does not appear in distress. VITAL SIGNS: His blood pressure is 166/117, pulse of 105. HEENT: Head is nontraumatic, normocephalic. Pupils are equal and reactive. Extraocular movements are intact. Nonicteric sclerae. Well injected conjunctivae. NECK: Supple. No adenopathy. No murmur. Thyroid is not palpable. Trachea is midline. No supraclavicular adenopathy. HEART: S1 and S2 regular. No murmur. No gallop. No friction rubs. No displacement of PMI. LUNGS: Clear to auscultation bilaterally. No wheezes or rhonchi. No crackles. ABDOMEN: Bowel sounds are positive. Nontender abdomen. No hepatosplenomegaly. EXTREMITIES: No lower extremity edema. No cyanosis. NEUROLOGIC: Cranial nerves II through XII within normal limits. Normal motor function. Normal sensory function. Normal reflexes. LABORATORY DATA: Blood work shows a WBC of 17, hemoglobin of 17.2. Sodium 140, potassium 3, and creatinine 1.24. Previous creatinine was 1.27 in 2019. Initial troponin 0.576. Repeat troponin 0.660. IMAGING DATA: EKG shows ST elevation in the aVF and V1, V2, V3. ASSESSMENT AND PLAN: This is a 38-year-old male patient presenting with chest pain, initially thought to have ST-elevation myocardial infarction in the setting of hypertensive emergency secondary to noncompliance with his medication. Initially, ER did speak with Cardiology. Recommendation was to control his blood pressure. He was started on heparin drip and nitroglycerin drip with good response. The patient is currently chest pain free, he will be admitted to the intensive care unit, to be seen by Cardiology for possible cardiac cath. Until then continue to cycle cardiac enzymes and continue to monitor his blood pressure. We will check a lipid profile and the patient will be on aspirin. Further management as per his clinical progression and as per Cardiology input. The patient had the low potassium level. This was replaced. The patient was started on Angiomax in preparation for the cardiac cath. Job ID: [id number]
--- NOTE | 2019-09-18 08:13 | RAD ---
Exam: Chest one view HISTORY:Chest pain Comparison: 10/24/2018 FINDINGS: Cardiac silhouette: Normal Aorta: Unremarkable Pulmonary vessels: Normal Costophrenic angles: Clear LUNGS: No masses or consolidation. Pneumothorax: None Osseous abnormalities: None IMPRESSION: No acute cardiopulmonary process.
[2019-09-18 08:31] LABS: Troponin I 2.172 ng/mL (< 0.028)
[2019-09-18] MEDS ORDERED: Ondansetron PF 4 MG/2 ML Vial IVP PRN (09:53)
[2019-09-18] MEDS ORDERED: Acetaminophen 325 MG TAB PO PRN (09:54)
[2019-09-18] MEDS ORDERED: Ondansetron ODT 4 MG TAB PO PRN (09:54)
[2019-09-18] MEDS ORDERED: Nitroglycerin 50 MG/250 ML BOT 250 ML IVPB SCH (10:00)
[2019-09-18] MEDS ORDERED: Heparin 25,000 units/D5W 500 ML IV SCH ×2 (10:00→12:30)
[2019-09-18 10:06] VITALS: BMI 38.3
[2019-09-18] MEDS ORDERED: Heparin 10,000 UNITS/ 10 ML VIAL SLOW IVP SCH (12:30)
[2019-09-18] MEDS ORDERED: Metoprolol Tartrate 5 MG/5 ML VIAL IVP SCH ×2 (12:51→16:15)
[2019-09-18] MEDS ORDERED: Enoxaparin Sodium 100 MG/ML SYRINGE SC SCH ×2 (12:53→14:00)
[2019-09-18] MEDS ORDERED: Metoprolol Tartrate 5 MG/5 ML VIAL ONE (13:04)
[2019-09-18] MEDS ORDERED: Aspirin 81 mg Enteric Coated Tablet ONE (13:06)
[2019-09-18] MEDS ORDERED: Heparin 10,000 UNITS/ 10 ML VIAL ONE (13:06)
[2019-09-18] MEDS ORDERED: Enoxaparin Sodium 100 MG/ML SYRINGE SCH (13:06)
[2019-09-18] MEDS ORDERED: Enoxaparin Sodium 40 MG/0.4 ML SYRINGE SC SCH (13:15)
[2019-09-18] MEDS ORDERED: Aspirin 81 mg Enteric Coated Tablet PO SCH (13:15)
[2019-09-18] MEDS ORDERED: Potassium Chloride 20 MEQ TAB PO SCH (13:15)
--- NOTE | 2019-09-18 13:46 | CON ---
DATE OF CONSULTATION: 09/18/2019 REASON FOR CONSULTATION: Malignant hypertension and eck-AD-jislcbcfr myocardial infarction. HISTORY OF PRESENT ILLNESS: Oneil is a 38-year-old gentleman with history of severe hypertension and coronary artery disease. The patient unfortunately ran out of medicines a few weeks ago, at least 2 weeks ago. Last night, he started noticing that he just felt tightness in his chest. This is preceded by anxiety. He said he was worried a lot about his financial situation as well as other problems. The patient came to the hospital. He had a blood pressure as high as 280/160. Initially, they thought it was an ST-elevation myocardial infarction, but then they realized this was just uncontrolled hypertension. The patient has been placed in intensive care unit. He has not received any blood pressure medicines here. He is on intravenous nitroglycerin. MEDICATIONS: Medicines that were prescribed were, 1. Procardia XL 90 mg a day. 2. Metoprolol 25 mg twice a day. 3. Lisinopril. 4. Statin. 5. Zetia. The patient did receive nicardipine in the emergency room. REVIEW OF SYSTEMS: CONSTITUTIONAL: Positive for anxiety. PHYSICAL EXAMINATION: GENERAL: This is a somewhat apprehensive 38-year-old gentleman. VITAL SIGNS: Blood pressure is still 180/120 and pulse is 90. LUNGS: Clear. CARDIAC: Normal S1, normal S2. ABDOMEN: Soft and nontender. EXTREMITIES: Warm and dry. No clubbing, cyanosis or edema. DIAGNOSTIC DATA: EKG; sinus rhythm, possible old anteroseptal infarct, ST depression in the anterior leads. Cardiac enzymes, peak is 2.17. Previous catheterization revealed that he had 60% LAD lesions in 2 locations proximally with a 90% ostial-diagonal lesion. The diagonal lesion is not amenable to percutaneous therapy. ASSESSMENT: 1. Hypertension, malignant. 2. Wfs-VD-bjgafwozc myocardial infarction, likely related to fixed underlying coronary disease with uncontrolled hypertension. PLAN: 1. Beta-blockers. 2. Procardia. 3. Lisinopril. 4. Aspirin. 5. Lovenox. 6. RONI inhibitors. 7. Resume statins. Job ID: [id number]
[2019-09-18] MEDS: Enoxaparin Sodium 100 MG/ML SYRINGE SC SCH ×2 (14:09→21:59)
[2019-09-18] MEDS ORDERED: NIFEdipine XL 90 MG TAB PO SCH (14:45)
[2019-09-18] MEDS ORDERED: Metoprolol Tartrate 50 MG TAB PO SCH (14:45)
[2019-09-18 16:02] LABS: #Basophils 0.1 thou/uL (0.0-0.2); #Eosinphils 0.2 thou/uL (0.0-0.7); #Lymphocytes 5.3 thou/uL (1.20-3.40); #Monocytes 1.2 thou/uL (0.11-0.59); #Neutrophils 8.1 thou/uL (1.40-6.50); %Basophils 0.8 % (0.0-1.0); %Eosinophils 1.3 % (0.0-10.0); %Lymphocytes 35.6 % (21.0-51.0); %Monocytes 7.8 % (0.0-10.0); %Neutrophils 54.5 % (42.0-75.0); Hemoglobin 16.3 g/dL (14.0-18.0); Mean Corpuscular HGB CONC 35.4 g/dL (32.0-36.0); Mean Corpuscular Hemoglobin 32.5 pg (27.0-31.0); Mean Corpuscular Volume 91.8 fL (78.0-98.0); Mean Platelet Volume 7.7 fL (7.4-10.4); Platelet Count 286 thou/uL (130-400); RBC Distribution Width 13.7 % (11.5-14.5); Red Blood Cell (RBC) Count 5.03 mill/uL (4.70-6.10); White Blood Cell (WBC) Count 14.9 thou/uL (4.8-10.8)
[2019-09-18 16:26] LABS: Anion Gap 11 mmol/L (10-20); BUN (Urea Nitrogen) 9 mg/dL (8.9-20.6); Calc. Creatinine Clearance 159 mL/min (70-130); Calcium 9.3 mg/dL (7.8-10.44); Carbon Dioxide 27 mmol/L (22-29); Chloride 106 mmol/L (98-107); Estimated GFR-MDRD 89; Glucose 102 mg/dL (70-105); Potassium 3.5 mmol/L (3.5-5.1); Sodium 140 mmol/L (136-145)
[2019-09-18] MEDS: Lisinopril 5 MG TAB PO SCH (21:59)
[2019-09-18] MEDS: Atorvastatin Calcium 40 MG TAB PO SCH (21:59)
[2019-09-19 05:14] LABS: Anion Gap 13 mmol/L (10-20); BUN (Urea Nitrogen) 9 mg/dL (8.9-20.6); Calc. Creatinine Clearance 154 mL/min (70-130); Calcium 9.2 mg/dL (7.8-10.44); Carbon Dioxide 25 mmol/L (22-29); Cardiac Risk 4.5 (Less than 4.5); Chloride 104 mmol/L (98-107); Cholesterol 196 mg/dl (< 200 Desired); Estimated GFR-MDRD 86; Glucose 97 mg/dL (70-105); HDL Cholesterol 44 mg/dL (>60 Neg Risk); LDL Cholesterol, Calculated 134 mg/dL; Magnesium 1.9 mg/dL (1.6-2.6); Potassium 3.4 mmol/L (3.5-5.1); Sodium 139 mmol/L (136-145); Triglycerides 91 mg/dL (Less than 150)
[2019-09-19 05:47] LABS: Band 4 % (5-11); Eosinophils 1 % (0-10); Hemoglobin 16.9 g/dL (14.0-18.0); Lymphocytes 50 % (21-51); MDiff Complete? YES; Mean Corpuscular HGB CONC 32.4 g/dL (32.0-36.0); Mean Corpuscular Hemoglobin 29.9 pg (27.0-31.0); Mean Corpuscular Volume 92.1 fL (78.0-98.0); Mean Platelet Volume 7.4 fL (7.4-10.4); Monocytes 4 % (0-10); Neutrophil 41 % (42-75); Platelet Count 310 thou/uL (130-400); RBC Distribution Width 13.8 % (11.5-14.5); Red Blood Cell (RBC) Count 5.65 mill/uL (4.70-6.10); White Blood Cell (WBC) Count 15.6 thou/uL (4.8-10.8)
[2019-09-19] MEDS: Aspirin 81 mg Enteric Coated Tablet PO SCH (08:53)
[2019-09-19] MEDS: Lisinopril 5 MG TAB PO SCH (08:54)
[2019-09-19] MEDS: NIFEdipine XL 90 MG TAB PO SCH (08:54)
[2019-09-19] MEDS: Enoxaparin Sodium 100 MG/ML SYRINGE SC SCH (08:55)
[2019-09-19] MEDS ORDERED: Nitroglycerin 2% Ointment 1 INCH/1 GM Packet TOP SCH (12:30)
--- NOTE | 2019-09-19 12:39 | PRG ---
DATE OF SERVICE: 09/19/2019 SUBJECTIVE: Mr. Riggs is feeling better today, just feels tired. OBJECTIVE: VITAL SIGNS: Blood pressure this morning was still high at 159/101, pulse of 80. LUNGS: Clear. CARDIAC: Normal S1 and normal S2. ABDOMEN: Soft and nontender. EXTREMITIES: No edema. ASSESSMENT: 1. Hypertension, difficult to control. 2. Ltj-GR-hgjjxqihf myocardial infarction, appears to be related to underlying coronary artery disease with superimposed uncontrolled hypertension. 3. Hypercholesterolemia. The patient has stopped taking all his medicines. PLAN: 1. Increase metoprolol to 100 mg tomorrow. 2. Increase lisinopril. 3. Reduce enoxaparin. 4. Continue Procardia XL. 5. Try to get him off the IV nitro. Can be moved to telemetry. Job ID: [id number]
--- NOTE | 2019-09-19 14:20 | PDOC.HOSPP ---
- Subjective Encounter Date: 09/19/19 Subjective: pt seen examined today denies any cp feeling overall better no sob feve or chills - Objective Vital Signs & Weight: Vital Signs (12 hours) Temp Pulse BP Pulse Ox 09/19/19 12:00 98.2 F 09/19/19 08:54 77 182/114 H 09/19/19 08:00 98.0 F 09/19/19 07:55 99 09/19/19 04:00 98.5 F Weight Weight 237 lb 7.005 oz Most Recent Monitor Data Heart Rate from ECG 88 NIBP 129/88 NIBP BP-Mean 101 Respiration from ECG 14 SpO2 97 I&O: 09/18/19 09/19/19 09/20/19 06:59 06:59 06:59 Intake Total 1276.1 700 Output Total 2750 500 Balance -1473.9 200 Result Diagrams: 09/19/19 03:31 09/19/19 03:31 Hospitalist ROS - Medication Medications: Active Medications Generic Name Dose Route Start Last Admin Trade Name Ector PRN Reason Stop Dose Admin Aspirin 81 mg 09/19/19 09:00 09/19/19 08:53 Ecotrin PO 81 mg DAILY LINWOOD Administration Atorvastatin Calcium 40 mg 09/18/19 21:00 09/18/19 21:59 Lipitor PO 40 mg HS LINWOOD Administration Nifedipine 90 mg 09/19/19 09:00 09/19/19 08:54 Procardia Xl PO 90 mg DAILY LINWOOD Administration Nitroglycerin 1 inch 09/19/19 12:30 09/19/19 13:15 Nitro-Bid 2% Ointment TOP 09/19/19 14:30 1 inch NOW LINWOOD Administration Sodium Chloride 10 ml 09/18/19 21:00 09/19/19 08:55 Flush - Normal Saline IVF 10 ml Q12HR LINWOOD Administration - Exam General Appearance: NAD, awake alert Eye: PERRL ENT: normocephalic atraumatic Neck: supple Heart: RRR Respiratory: CTAB Gastrointestinal: soft Extremities: no cyanosis Hosp A/P (1) Chest pain Code(s): R07.9 - CHEST PAIN, UNSPECIFIED Status: Acute (2) NSTEMI (non-ST elevated myocardial infarction) Code(s): I21.4 - NON-ST ELEVATION (NSTEMI) MYOCARDIAL INFARCTION Status: Acute (3) Hypertension Code(s): I10 - ESSENTIAL (PRIMARY) HYPERTENSION Status: Chronic (4) Obesity, Class III, BMI 40-49.9 (morbid obesity) Code(s): E66.01 - MORBID (SEVERE) OBESITY DUE TO EXCESS CALORIES Status: Chronic - Plan pt currently pain freee appreciate cardio input medical management for now increased metoprolol 100mg tomoorrow increase lisinopril and cont procardia wean off iv nitro moniotr electrolytes and replace as needed dvt ppx full code disp in 1-2 days once bp better controlled and cleared by cardio
[2019-09-19 14:21] LABS: SARS-CoV-2 MS2 Positive; SARS-CoV-2 N Gene Negative; SARS-CoV-2 S Gene Negative; SARS-CoV-2 orf1ab Negative
[2019-09-19] MEDS: Enoxaparin Sodium 40 MG/0.4 ML SYRINGE SC SCH (21:50)
[2019-09-19] MEDS: Lisinopril 10 MG TAB PO SCH (21:51)
[2019-09-19] MEDS: Nitroglycerin 2% Ointment 1 INCH/1 GM Packet TOP SCH (21:52)
[2019-09-19] MEDS: Atorvastatin Calcium 40 MG TAB PO SCH (21:52)
[2019-09-20] MEDS: Enoxaparin Sodium 40 MG/0.4 ML SYRINGE SC SCH (08:36)
[2019-09-20] MEDS: Aspirin 81 mg Enteric Coated Tablet PO SCH (08:36)
[2019-09-20] MEDS: Nitroglycerin 2% Ointment 1 INCH/1 GM Packet TOP SCH (08:37)
[2019-09-20] MEDS: NIFEdipine XL 90 MG TAB PO SCH (08:37)
[2019-09-20] MEDS: Lisinopril 10 MG TAB PO SCH (08:49)
[2019-09-20 11:07] VITALS: BP 154/79
--- NOTE | 2019-09-20 12:41 | PDOC.HOSPP ---
- Subjective Encounter Date: 09/20/19 Subjective: Patient seen and examined bedside this morning resting in bed no acute distress reported no chest pain today no fever chills nausea vomiting nitro drip has been weaned off no significant overnight events patient asking to be discharged home today - Objective Vital Signs & Weight: Vital Signs (12 hours) Temp Pulse Pulse BP BP BP Pulse Ox 09/20/19 10:02 71 76 154/79 H 145/92 H 97 09/20/19 08:49 165/92 H 09/20/19 08:37 165/92 H 09/20/19 08:00 98.3 F 09/20/19 04:00 98.6 F Pulse Ox 09/20/19 10:02 96 09/20/19 08:49 09/20/19 08:37 09/20/19 08:00 09/20/19 04:00 Weight Weight 237 lb 7.005 oz Most Recent Monitor Data Heart Rate from ECG 82 NIBP 132/87 NIBP BP-Mean 102 Respiration from ECG 14 SpO2 96 I&O: 09/19/19 09/20/19 09/21/19 06:59 06:59 06:59 Intake Total 1276.1 1702 Output Total 2750 950 275 Balance -1473.9 752 -275 Result Diagrams: 09/19/19 03:31 09/19/19 03:31 Hospitalist ROS - Medication Medications: Active Medications Generic Name Dose Route Start Last Admin Trade Name Freq PRN Reason Stop Dose Admin Aspirin 81 mg 09/19/19 09:00 09/20/19 08:36 Ecotrin PO 81 mg DAILY LINWOOD Administration Atorvastatin Calcium 40 mg 09/18/19 21:00 09/19/19 21:52 Lipitor PO 40 mg HS LINWOOD Administration Enoxaparin Sodium 40 mg 09/19/19 21:00 09/20/19 08:36 Lovenox SC 40 mg 0900,2100 LINWOOD Administration Lisinopril 10 mg 09/19/19 21:00 09/20/19 08:49 Zestril PO 10 mg BID LINWOOD Administration Metoprolol Succinate 100 mg 09/20/19 09:00 09/20/19 08:38 Toprol Xl PO 100 mg DAILY LINWOOD Administration Nifedipine 90 mg 09/19/19 09:00 09/20/19 08:37 Procardia Xl PO 90 mg DAILY LINWOOD Administration Nitroglycerin 1 inch 09/19/19 22:00 09/20/19 08:37 Nitro-Bid 2% Ointment TOP 1 inch Q8HR LINWOOD Administration Sodium Chloride 10 ml 09/18/19 21:00 09/20/19 08:39 Flush - Normal Saline IVF 10 ml Q12HR LINWOOD Administration - Exam General Appearance: NAD Eye: PERRL ENT: normocephalic atraumatic Neck: supple Heart: RRR Respiratory: CTAB Gastrointestinal: soft, non-tender Hosp A/P (1) Chest pain Code(s): R07.9 - CHEST PAIN, UNSPECIFIED Status: Acute (2) NSTEMI (non-ST elevated myocardial infarction) Code(s): I21.4 - NON-ST ELEVATION (NSTEMI) MYOCARDIAL INFARCTION Status: Acute (3) Hypertension Code(s): I10 - ESSENTIAL (PRIMARY) HYPERTENSION Status: Chronic (4) Obesity, Class III, BMI 40-49.9 (morbid obesity) Code(s): E66.01 - MORBID (SEVERE) OBESITY DUE TO EXCESS CALORIES Status: Chronic - Plan pt currently pain freee patient is off nitro blood pressure some improvement after adjusting the medications appreciate cardio input medical management for now increased metoprolol 100mg tomoorrow increase lisinopril and cont procardia Patient asking to be discharged home today will discharge if cleared by cardiology Patient report anxiety which led to his symptoms well give prescription for Xanax 0.25 mg for 15 tablets until he follows with his PCP moniotr electrolytes and replace as needed dvt ppx full code disp hopefully in the next 24 hours once cleared by cardiology
[2019-09-20 13:58] VITALS: TEMP 98.2
--- NOTE | 2019-09-20 14:13 | PRG ---
DATE OF SERVICE: 09/20/2019 SUBJECTIVE: Mr. Riggs is feeling fine. OBJECTIVE: VITAL SIGNS: His blood pressure is 130/90, pulse 86. LUNGS: Clear. CARDIAC: Normal S1, normal S2. ABDOMEN: Soft, nontender. ASSESSMENT: 1. Status post episode of malignant hypertension. 2. Underlying coronary artery disease. 3. Unfortunately, the patient had been out of medicines for a couple of weeks prior to this admission, had blood pressures which were extremely high in the emergency room. 4. Lyq-VY-bxbxotr elevation myocardial infarction related to demand ischemia. PLAN: 1. He is going to go home on Toprol-XL 100 mg a day. 2. Procardia XL 90 mg a day. 3. Lisinopril 10 mg twice a day. 4. Aspirin. 5. Atorvastatin 40 mg a day. 6. Zetia 10 mg a day. Job ID: [id number]
== END 2019-09-20 14:50 | disposition home or self-care (01) | DRG 281 ==
LOC: ERS 01:26 → ERHOLD 03:59 → CCU 09:35
PROVIDERS: ADMIT Internal Medicine; ATTEND Internal Medicine
PROC: 4A023N7 Measurement of Cardiac Sampling and Pressure, Left Heart, Percutaneous Approach (ICD-10-PCS; principal; 2019-09-18)
PROC: B2111ZZ Fluoroscopy of Multiple Coronary Arteries using Low Osmolar Contrast (ICD-10-PCS; 2019-09-18)
DX: I21.4 Non-ST elevation (NSTEMI) myocardial infarction (principal); I16.1 Hypertensive emergency; I25.10 Atherosclerotic heart disease of native coronary artery without angina pectoris; E66.01 Morbid (severe) obesity due to excess calories; E78.00 Pure hypercholesterolemia, unspecified; F41.9 Anxiety disorder, unspecified; I25.2 Old myocardial infarction; Z87.442 Personal history of urinary calculi; Z68.38 Body mass index [BMI] 38.0-38.9, adult
CPT/HCPCS: 36415; 71045; 80048; 80053; 80061; 82550; 82553; 83735; 84484; 85025; 85730; 87635; 93005; 93798; J0583; J1644; J1650; J2060; J2405; U0003

== ENCOUNTER 2019-12-19 03:15 | Emergency (ER) | payer SELFPAY ==
[2019-12-19] MEDS ORDERED: Aspirin Chewable 81 MG TAB ONE (03:59)
--- NOTE | 2019-12-19 08:22 | RAD ---
CHEST 1 VIEW: Date: 12/19/2019 HISTORY: Chest pain. COMPARISON: Radiograph dated 09/18/2019. FINDINGS: There is a faint right middle lobe and right lower lobe air space opacity. Heart size is mildly enlar ged. No pneumothorax. There is also a faint left basilar air space opacity. No significant effusion. No acute osseous abnormality. IMPRESSION: Some faint lower lobe air space opacities can be seen with atypical viral infectious process. POS: [facility]
[2019-12-19 09:04] LABS: ALT (SGPT) 18 U/L (8-55); AST (SGOT) 27 U/L (5-34); Albumin 4.1 g/dL (3.5-5.0); Alkaline Phosphatase 69 U/L (40-110); Anion Gap 16 mmol/L (10-20); BUN (Urea Nitrogen) 15 mg/dL (8.9-20.6); Bilirubin, Total 0.3 mg/dL (0.2-1.2); Calc. Creatinine Clearance 0 mL/min (70-130); Calcium 9.3 mg/dL (7.8-10.44); Carbon Dioxide 25 mmol/L (22-29); Chloride 103 mmol/L (98-107); Estimated GFR-MDRD 69; Globulin 3.6 g/dL (2.4-3.5); Glucose 128 mg/dL (70-105); Lipase 74 U/L (8-78); Potassium 3.8 mmol/L (3.5-5.1); Protein, Total 7.7 g/dL (6.0-8.3); Sodium 140 mmol/L (136-145)
[2019-12-19 09:05] LABS: Troponin I 0.019 ng/mL (< 0.028)
[2019-12-19 09:55] LABS: #Basophils 0.2 thou/uL (0.0-0.2); #Eosinphils 0.4 thou/uL (0.0-0.7); #Lymphocytes 5.6 thou/uL (1.20-3.40); #Monocytes 0.8 thou/uL (0.11-0.59); #Neutrophils 6.7 thou/uL (1.40-6.50); %Basophils 1.5 % (0.0-1.0); %Eosinophils 3.1 % (0.0-10.0); %Lymphocytes 41.1 % (21.0-51.0); %Monocytes 5.5 % (0.0-10.0); Mean Corpuscular Hemoglobin 33.6 pg (27.0-31.0); Mean Corpuscular Volume 93.4 fL (78.0-98.0); Mean Platelet Volume 7.7 fL (7.4-10.4); Platelet Count 295 thou/uL (130-400); RBC Distribution Width 13.7 % (11.5-14.5); Red Blood Cell (RBC) Count 4.77 mill/uL (4.70-6.10); White Blood Cell (WBC) Count 13.7 thou/uL (4.8-10.8)
[2019-12-19 09:59] LABS: Troponin I 0.016 ng/mL (< 0.028)
== END 2019-12-19 10:20 | disposition home or self-care (01) ==
LOC: ERS 03:15
DX: R07.9 Chest pain, unspecified (principal); I10 Essential (primary) hypertension; I25.2 Old myocardial infarction; F41.9 Anxiety disorder, unspecified; Z79.82 Long term (current) use of aspirin; Z79.899 Other long term (current) drug therapy
CPT/HCPCS: 71045; 80053; 83690; 83880; 84484; 85025; 93005

== ENCOUNTER 2020-02-03 01:17 | Inpatient (IN) | payer SELFPAY ==
[2020-02-03] MEDS ORDERED: Nitroglycerin 0.4 MG TAB 1 EACH ONE ×2 (01:37→12:49)
[2020-02-03] MEDS ORDERED: Ondansetron PF 4 MG/2 ML Vial ONE ×2 (01:38→13:32)
[2020-02-03 01:41] LABS: #Basophils 0.1 thou/uL (0.0-0.2); #Eosinphils 0.3 thou/uL (0.0-0.7); #Lymphocytes 4.9 thou/uL (1.20-3.40); #Monocytes 0.9 thou/uL (0.11-0.59); #Neutrophils 7.4 thou/uL (1.40-6.50); %Basophils 0.9 % (0.0-1.0); %Eosinophils 2.2 % (0.0-10.0); %Lymphocytes 36.2 % (21.0-51.0); %Monocytes 6.3 % (0.0-10.0); %Neutrophils 54.4 % (42.0-75.0); Hemoglobin 16.1 g/dL (14.0-18.0); Mean Corpuscular HGB CONC 34.6 g/dL (32.0-36.0); Mean Corpuscular Hemoglobin 32.5 pg (27.0-31.0); Mean Corpuscular Volume 93.8 fL (78.0-98.0); Mean Platelet Volume 7.3 fL (7.4-10.4); Platelet Count 280 thou/uL (130-400); RBC Distribution Width 13.6 % (11.5-14.5); Red Blood Cell (RBC) Count 4.97 mill/uL (4.70-6.10); White Blood Cell (WBC) Count 13.6 thou/uL (4.8-10.8)
[2020-02-03 02:01] LABS: ALT (SGPT) 20 U/L (8-55); AST (SGOT) 27 U/L (5-34); Alkaline Phosphatase 66 U/L (40-110); Anion Gap 16 mmol/L (10-20); BUN (Urea Nitrogen) 16 mg/dL (8.9-20.6); Bilirubin, Total 0.4 mg/dL (0.2-1.2); CK (CPK) 107 U/L (30-200); Calc. Creatinine Clearance 0 mL/min (70-130); Calcium 8.9 mg/dL (7.8-10.44); Carbon Dioxide 22 mmol/L (22-29); Chloride 106 mmol/L (98-107); Estimated GFR-MDRD 62; Globulin 3.5 g/dL (2.4-3.5); Glucose 125 mg/dL (70-105); Lipase 125 U/L (8-78); Potassium 3.7 mmol/L (3.5-5.1); Protein, Total 7.5 g/dL (6.0-8.3); Sodium 140 mmol/L (136-145)
[2020-02-03 02:24] LABS: CKMB 1.2 ng/mL (0-6.6)
[2020-02-03] MEDS ORDERED: Acetaminophen 650 MG Suppository PR PRN (04:02)
[2020-02-03] MEDS ORDERED: Acetaminophen 325 MG TAB PO PRN (04:02)
[2020-02-03] MEDS ORDERED: Nitroglycerin 0.4 MG TAB (25 Tab Bottle) SL PRN (04:04)
--- NOTE | 2020-02-03 04:24 | PDOC.HHP ---
Hospitalist HPI - History of Present Illness History of Present Illness: ADMISSION DATE: 02/03/2020 TIME OF ASSESSMENT: 0300 PRIMARY CARE PHYSICIAN: [facility] CHIEF COMPLAINT: Chest pain HPI: This is a 39-year-old gentleman with a known history of CAD who had an CA in June 2018 who presents with chest and back discomfort similar to what he experienced with his previous CA. He states the pain started at approximately 12 AM while he was sitting and was an his back described as back spasms. The severity of his back discomfort was a 4 out of 10. He states shortly after he began to experience substernal chest discomfort which he describes as "someone sitting on my chest". He recalls feeling anxious due to the stress he has had in the last week with the of a family member and other issues. He became tachypneic as he normally does when he has a panic attack. Patient states the pain progressively worsened after 30 to 45 minutes. It increased to a 6 out of 10 in severity. Reports having discomfort in his chin that has now fully resolved. He decided to seek medical attention and called EMS. Overall the pain lasted approximately 1 hour. His given nitro and aspirin 324 mg by EMS. States that by the time he arrived his discomfort had eased significantly. Currently he is pain-free. Patient states that the discomfort was similar to what he experienced in June 2018 with his CA, however the severity was not as significant. He reports being compliant with his medications did take his blood pressure medications late today. Status post cath done June 21, 2018 which showed an LVEF of 55%. Single-vessel CAD with 90% ostial stenosis first diagonal branch. LAD with 50 to 60% proximal disease. Recommended medical therapy. ED COURSE: At initial presentation the patient was noted to be in hypertensive urgency with a blood pressure of 230/122. HR was 84 and temp was normal. Sats also normal. EKG done in the emergency department showed a normal sinus rhythm with a heart of 74 and. He was noted to have ST depression in V4, V5 and V6. No T wave abnormalities. Chest x-ray done and unremarkable. For his blood pressure the patient was given nitroglycerin glycerin 0.4 mg sublingual. 5 mg of Lopressor ordered but does not appear to have been given. He received 8 mg of Zofran for nausea which he developed on initial presentation to the ER. Resolved quickly after antiemetic given. PAST MEDICAL HISTORY: 1. Hypertension 2. History of CA in June 2018 3. Nephrolithiasis 4. Anxiety 5. CAD 6. Obesity PAST SURGICAL HISTORY: None. SOCIAL HISTORY: Patient is fully independent and lives with family. Reports occasional alcohol consumption. Denies any tobacco use or other drug use. FAMILY HISTORY: Strong family history of heart disease on his mother's side. His mother has CAD, maternal uncles x 2, an aunt and his maternal grandfather. ALLERGIES: No known drug allergies CURRENT MEDICATIONS: 1. Plavix 300 mg p.o. daily 2. Nifedipine 20 mg p.o. daily 3. Lisinopril 5 mg p.o. daily 4. Fluoxetine 10 mg p.o. daily 5. Aspirin 81 mg p.o. daily 6. Metoprolol succinate ER 100 mg p.o. daily 7. Lipitor 10 mg p.o. daily - Exam General Appearance: NAD, awake alert General - other findings: VS: Temp 98.5, BP 146/86, HR 55, RR 16, O2 sat 90% on room air. Eye: PERRL, anicteric sclera ENT: normocephalic atraumatic, no oropharyngeal lesions Neck: supple, no lymphadenopathy Heart: RRR, no murmur, no gallops, no rubs, normal peripheral pulses Respiratory: CTAB, no wheezes, no rales, no ronchi, normal chest expansion Gastrointestinal: soft (obese), non-tender, non-distended, normal bowel sounds Extremities: no cyanosis, no clubbing, no edema Skin: normal turgor, no lesions, no rashes Neurological: cranial nerve grossly intact, normal sensation to touch Musculoskeletal: normal tone, normal strength, no muscle wasting Psychiatric: normal affect, normal behavior, A&O x 3 Hospitalist Results - Labs Result Diagrams: 02/03/20 01:30 02/03/20 01:30 Lab results: WBC 13.6 thou/uL (4.8-10.8) H 02/03/20 01:30 Hgb 16.1 g/dL (14.0-18.0) 02/03/20 01:30 Hct 46.6 % (42.0-52.0) 02/03/20 01:30 MCV 93.8 fL (78.0-98.0) 02/03/20 01:30 Plt Count 280 thou/uL (130-400) 02/03/20 01:30 Neutrophils % 54.4 % (42.0-75.0) 02/03/20 01:30 Sodium 140 mmol/L (136-145) 02/03/20 01:30 Potassium 3.7 mmol/L (3.5-5.1) 02/03/20 01:30 Chloride 106 mmol/L (98-107) 02/03/20 01:30 Carbon Dioxide 22 mmol/L (22-29) 02/03/20 01:30 BUN 16 mg/dL (8.9-20.6) 02/03/20 01:30 Creatinine 1.27 mg/dL (0.7-1.3) 02/03/20 01:30 Glucose 125 mg/dL (70-105) H 02/03/20 01:30 Calcium 8.9 mg/dL (7.8-10.44) 02/03/20 01:30 Total Bilirubin 0.4 mg/dL (0.2-1.2) 02/03/20 01:30 AST 27 U/L (5-34) 02/03/20 01:30 ALT 20 U/L (8-55) 02/03/20 01:30 Alkaline Phosphatase 66 U/L (40-110) 02/03/20 01:30 Creatine Kinase 107 U/L (30-200) 02/03/20 01:30 CK-MB (CK-2) 1.2 ng/mL (0-6.6) 02/03/20 01:30 Troponin I 0.104 ng/mL (< 0.028) H 02/03/20 01:30 Serum Total Protein 7.5 g/dL (6.0-8.3) 02/03/20 01:30 Albumin 4.0 g/dL (3.5-5.0) 02/03/20 01:30 Lipase 125 U/L (8-78) H 02/03/20 01:30 - Radiology Interpretation Chest x-ray Status: report reviewed by mo Hospitalist H&P A/P - Problem (1) Chest pain Code(s): R07.9 - CHEST PAIN, UNSPECIFIED Status: Acute (2) Hypertensive urgency Code(s): I16.0 - HYPERTENSIVE URGENCY Status: Acute (3) CAD (coronary artery disease) Code(s): I25.10 - ATHSCL HEART DISEASE OF [place] CORONARY ARTERY W/O ANG PCTRS Status: Chronic (4) Anxiety Code(s): F41.9 - ANXIETY DISORDER, UNSPECIFIED Status: Chronic (5) Hypertension Code(s): I10 - ESSENTIAL (PRIMARY) HYPERTENSION Status: Chronic (6) Obesity Code(s): E66.9 - OBESITY, UNSPECIFIED Status: Chronic - Plan Plan: Cardiac monitoring Continue to trend troponins Will consult cardiology, given hx of CA with abnormal cath with medical therapy recommended. Keep NPO. Check lipid panel, fastin. Continue aspirin. Monitor BP. Resume home medications once verified. GI Prophylaxis with famotidine. DVT Prophylaxis with mechanical SCDs. CODE STATUS: FULL Case discussed with Dr. Yeung who agrees with plan as above.
[2020-02-03] MEDS: Sodium Chloride 0.9% 1,000 ML IV SCH ×2 (05:03→21:57)
[2020-02-03 05:16] LABS: Troponin I 0.801 ng/mL (< 0.028)
[2020-02-03 05:56] LABS: ALT (SGPT) 22 U/L (8-55); AST (SGOT) 63 U/L (5-34); Albumin 3.8 g/dL (3.5-5.0); Alkaline Phosphatase 63 U/L (40-110); Bilirubin, Direct 0.1 mg/dL (0.1-0.3); Bilirubin, Total 0.3 mg/dL (0.2-1.2); Protein, Total 7.6 g/dL (6.0-8.3)
[2020-02-03 07:56] LABS: SARS-CoV-2 MS2 Positive; SARS-CoV-2 N Gene Negative; SARS-CoV-2 S Gene Negative; SARS-CoV-2 by NAA Not Detected (NotDetected); SARS-CoV-2 orf1ab Negative
[2020-02-03 08:08] LABS: Troponin I 2.747 ng/mL (< 0.028)
--- NOTE | 2020-02-03 08:13 | RAD ---
EXAM: CHEST ONE VIEW HISTORY: Chest pain for one hour. Hypertension. Pressure on chest. COMPARISON: 12/19/2019 FINDINGS: Cardiac silhouette is magnified by projection but does appear mildly enlarged. There has been interva l increase in patchy parenchymal opacities at the medial right lung base with minimal patchy density seen in the retrocardiac region left lung base and lateral left lung base. No pleural fluid i s seen. No other interval change. IMPRESSION: Bilateral lower lobe parenchymal opacities which have increased when compared to prior exam. Findings are nonspecific but can be seen with atypical infectious process or viral pneumonitis.
[2020-02-03] MEDS ORDERED: Clopidogrel Bisulfate 75 MG TAB PO SCH (09:00)
[2020-02-03] MEDS ORDERED: Famotidine 20 MG TAB ONE ×2 (09:00→21:17)
[2020-02-03] MEDS ORDERED: Aspirin 81 mg Enteric Coated Tablet ONE (09:00)
[2020-02-03] MEDS ORDERED: Clopidogrel Bisulfate 75 MG TAB ONE (09:00)
[2020-02-03] MEDS: Enoxaparin Sodium 120 MG/0.8 ML SYRINGE SC SCH ×2 (09:04→21:41)
[2020-02-03] MEDS: Aspirin 81 mg Enteric Coated Tablet PO SCH (09:04)
[2020-02-03] MEDS: Famotidine 20 MG TAB PO SCH ×2 (09:04→21:42)
[2020-02-03] MEDS ORDERED: Acetaminophen 325 MG TAB ONE (12:49)
[2020-02-03] MEDS ORDERED: niCARdipine 20MG In NaCl 20 MG/200 ML BAG ONE ×2 (13:08→17:27)
[2020-02-03] MEDS ORDERED: niCARdipine 25 MG in Sodium Chloride 0.9% 250 ML 240 ML IVPB SCH (13:30)
--- NOTE | 2020-02-03 13:31 | PDOC.HOSPP ---
- Subjective Encounter Date: 02/03/20 Encounter Time: 13:29 Subjective: no chest pain, sob - Objective Vital Signs & Weight: Weight Weight 264 lb 15.93 oz Result Diagrams: 02/03/20 01:30 02/03/20 01:30 EKG Reviewed by me: Yes (RSR, marked inverted T waves lat leads) Hospitalist ROS - Medication Medications: Active Medications Generic Name Dose Route Start Last Admin Trade Name Freq PRN Reason Stop Dose Admin Acetaminophen 650 mg 02/03/20 04:02 02/03/20 12:55 Acetaminophen 325 Mg Tab PO 650 mg Q4H PRN Administration Headache/Fever/Mild Pain (1-3) Aspirin 81 mg 02/03/20 09:00 02/03/20 09:04 Aspirin 81 Mg Enteric Coated Tablet PO 81 mg DAILY LINWOOD Administration Clopidogrel Bisulfate 75 mg 02/03/20 09:00 02/03/20 09:04 Clopidogrel Bisulfate 75 Mg Tab PO 75 mg DAILY LINWOOD Administration Enoxaparin Sodium 120 mg 02/03/20 09:00 02/03/20 09:04 Enoxaparin Sodium 120 Mg/0.8 Ml Syringe SC 120 mg 0900,2100 LINWOOD Administration Famotidine 20 mg 02/03/20 09:00 02/03/20 09:04 Famotidine 20 Mg Tab PO 20 mg BID LINWOOD Administration Sodium Chloride 1,000 mls @ 65 mls/hr 02/03/20 04:15 02/03/20 05:03 Normal Saline 0.9% IV 1,000 mls .[id number] LINWOOD Administration Metoprolol Succinate 100 mg 02/03/20 09:00 02/03/20 09:05 Metoprolol Succinate Xl 100 Mg Tab PO 100 mg DAILY LINWOOD Administration Nitroglycerin 0.4 mg 02/03/20 04:04 02/03/20 12:52 Nitroglycerin 0.4 Mg Tab (25 Tab Bottle) SL 0.4 mg Q5MIN PRN Administration Chest Pain - Exam General Appearance: awake alert Neck: no JVD Heart: RRR, no murmur Respiratory: CTAB Gastrointestinal: soft, normal bowel sounds Extremities: no edema Hosp A/P (1) NSTEMI (non-ST elevated myocardial infarction) Code(s): I21.4 - NON-ST ELEVATION (NSTEMI) MYOCARDIAL INFARCTION Status: Acute (2) Hypertensive urgency Code(s): I16.0 - HYPERTENSIVE URGENCY Status: Acute (3) CAD (coronary artery disease) Code(s): I25.10 - ATHSCL HEART DISEASE OF [place] CORONARY ARTERY W/O ANG PCTRS Status: Chronic Qualifiers: Coronary Disease-Associated Artery/Lesion type: [place] artery [place] vs. transplanted heart: [place] heart Associated angina: angina presence unspecified Qualified Code(s): I25.10 - Atherosclerotic heart disease of [place] coronary artery without angina pectoris (4) Anxiety Code(s): F41.9 - ANXIETY DISORDER, UNSPECIFIED Status: Chronic - Plan on antiplatett plus therapeutic loveox BP 200+/115- start iv sol pichardo move to critical care
[2020-02-03] MEDS ORDERED: Ondansetron ODT 4 MG TAB ONE (13:32)
[2020-02-03 14:58] LABS: Troponin I 4.345 ng/mL (< 0.028)
[2020-02-03] MEDS ORDERED: Communication Order-Pharmacy FS SCH ×2 (16:15→16:30)
[2020-02-03] MEDS ORDERED: Lisinopril 10 MG TAB PO SCH (16:15)
[2020-02-03] MEDS ORDERED: NIFEdipine XL 90 MG TAB PO SCH (16:15)
[2020-02-03] MEDS ORDERED: Lisinopril 10 MG TAB ONE (16:23)
--- NOTE | 2020-02-03 19:03 | CON ---
DATE OF CONSULTATION: 02/03/2020 REASON FOR CONSULTATION: [id number] myocardial infarction. HISTORY OF PRESENT ILLNESS: Mr. Riggs is a gentleman with coronary artery disease and severe hypertension, came to the hospital with chest pain last night with uncontrolled blood pressure and was found to have increased troponin level and abnormal EKG. The patient is pain-free currently. PAST HISTORY: The patient did undergo cardiac catheterization in 06/2018. At that time, he was found to have single-vessel disease, there was a 90% ostial stenosis of a moderate to large the 1st diagonal branch, the LAD looked like it had 60% narrowing, but it looked like a suboptimal case for interventions as it looks like stenting the LAD would likely result in occlusion of the diagonal branch. It has been treated medically. He has had chest pain off and on. SOCIAL HISTORY: The patient does not smoke or use tobacco. MEDICATIONS: At home, he takes: 1. Procardia XL 90 mg a day, but he did not receive that this morning. 2. Lisinopril 20 mg a day. 3. Metoprolol. 4. Aspirin. 5. Plavix. 6. Statin. ALLERGIES: NONE REPORTED. SOCIAL HISTORY: As outlined above. REVIEW OF SYSTEMS: CONSTITUTIONAL: No significant weight gain or loss. VISION: No changes. HEARING: No changes. PULMONARY: No cough or wheezing. GASTROINTESTINAL: No nausea, vomiting, or diarrhea. SKIN: No rashes. NEUROLOGIC: No unilateral weakness or numbness. PSYCHIATRIC: No unusual depression or anxiety. PHYSICAL EXAMINATION: GENERAL: This is a pleasant gentleman, in no distress. VITAL SIGNS: Blood pressure is 140 systolic, but he is back on nicardipine. Pulse is in the 60s. NECK: Veins normal. Carotid, normal upstrokes. LUNGS: Clear. CARDIAC: Normal S1 and normal S2. There is no murmur, rub, or gallop. ABDOMEN: Soft and nontender. EXTREMITIES: Warm and dry. No clubbing. No cyanosis. No edema. LABORATORY DATA: His troponin levels are increased as outlined in the chart with a peak troponin of 4.345. ASSESSMENT: 1. Tip-YP-gdprwghty myocardial infarction. 2. Coronary artery disease as outlined above. 3. Hypertension. PLAN: 1. Resume home medication. 2. Proceed to cardiac catheterization tomorrow, will likely need bypass surgery if intervention is indicated. Intervening in the LAD would almost certainly result in occlusion of his diagonal branch. The patient understands risk of stroke, heart attack, iodine allergy, loss of blood supply to leg or kidney, stent thrombosis, stent restenosis. He understands, wished to proceed. Job ID: [id number]
[2020-02-03] MEDS ORDERED: Enoxaparin Sodium 40 MG/0.4 ML SYRINGE ONE (21:17)
[2020-02-03] MEDS ORDERED: Enoxaparin Sodium 80 MG/0.8 ML SYRINGE ONE (21:17)
[2020-02-03] MEDS: Atorvastatin Calcium 40 MG TAB PO SCH (22:25)
[2020-02-04] MEDS ORDERED: niCARdipine 50 MG in Sodium Chloride 0.9% 250 ML 230 ML IVPB SCH (02:30)
[2020-02-04 04:51] LABS: ALT (SGPT) 24 U/L (8-55); AST (SGOT) 40 U/L (5-34); Albumin 4.1 g/dL (3.5-5.0); Alkaline Phosphatase 71 U/L (40-110); Anion Gap 17 mmol/L (10-20); BUN (Urea Nitrogen) 8 mg/dL (8.9-20.6); Bilirubin, Total 0.6 mg/dL (0.2-1.2); Calc. Creatinine Clearance 174 mL/min (70-130); Calcium 9.2 mg/dL (7.8-10.44); Carbon Dioxide 21 mmol/L (22-29); Cardiac Risk 5.1 (Less than 4.5); Chloride 107 mmol/L (98-107); Cholesterol 223 mg/dl (< 200 Desired); Estimated GFR-MDRD 87; Globulin 3.5 g/dL (2.4-3.5); Glucose 99 mg/dL (70-105); HDL Cholesterol 44 mg/dL (>60 Neg Risk); LDL Cholesterol, Calculated 157 mg/dL; Potassium 3.5 mmol/L (3.5-5.1); Protein, Total 7.6 g/dL (6.0-8.3); Sodium 141 mmol/L (136-145); Triglycerides 112 mg/dL (Less than 150)
[2020-02-04 06:11] LABS: #Basophils 0.1 thou/uL (0.0-0.2); #Eosinphils 0.2 thou/uL (0.0-0.7); #Lymphocytes 5.2 thou/uL (1.20-3.40); #Monocytes 0.9 thou/uL (0.11-0.59); #Neutrophils 7.7 thou/uL (1.40-6.50); %Basophils 0.8 % (0.0-1.0); %Eosinophils 1.4 % (0.0-10.0); %Lymphocytes 37.2 % (21.0-51.0); %Monocytes 6.2 % (0.0-10.0); %Neutrophils 54.4 % (42.0-75.0); Hemoglobin 17.1 g/dL (14.0-18.0); Mean Corpuscular HGB CONC 33.1 g/dL (32.0-36.0); Mean Corpuscular Hemoglobin 31.3 pg (27.0-31.0); Mean Corpuscular Volume 94.5 fL (78.0-98.0); Mean Platelet Volume 7.3 fL (7.4-10.4); Platelet Count 317 thou/uL (130-400); RBC Distribution Width 13.7 % (11.5-14.5); RBC Morphology Normal; Red Blood Cell (RBC) Count 5.48 mill/uL (4.70-6.10); White Blood Cell (WBC) Count 14.1 thou/uL (4.8-10.8)
[2020-02-04] MEDS: Famotidine 20 MG TAB PO SCH (08:06)
[2020-02-04] MEDS ORDERED: Iopamidol 370 76% 100 ML VIAL ONE (08:47)
[2020-02-04] MEDS ORDERED: NIFEdipine XL 90 MG TAB PO SCH (09:00)
[2020-02-04] MEDS ORDERED: Lisinopril 20 MG TAB PO SCH (09:00)
[2020-02-04] MEDS ORDERED: Thrombin 5000 UNITS/5 ML VIAL ONE (09:21)
[2020-02-04] MEDS ORDERED: Heparin 5,000 UNITS/ML VIAL ONE (09:21)
[2020-02-04] MEDS ORDERED: Vecuronium 10 MG VIAL ONE ×3 (09:21→10:26)
[2020-02-04] MEDS ORDERED: Potassium Chloride 60 MEQ/30 ML VIAL ONE (09:21)
[2020-02-04] MEDS ORDERED: Protamine Sulfate 250 MG/25 ML VIAL ONE (09:21)
[2020-02-04] MEDS ORDERED: Glycopyrrolate 0.2 MG/ML 5 ML SYRINGE ONE (09:21)
[2020-02-04] MEDS ORDERED: Aminocaproic Acid 5 GM/20 ML VIAL ONE (09:21)
[2020-02-04] MEDS ORDERED: Lidocaine 1% PF 5 ML VIAL ONE (09:21)
[2020-02-04] MEDS ORDERED: Heparin 30,000 units/30 ml VIAL ONE (09:21)
[2020-02-04] MEDS ORDERED: Magnesium Sulfate 1 GM/2 ML VIAL ONE (09:21)
[2020-02-04] MEDS ORDERED: Calcium Chloride 1 GM/10 ML Abboject SYRINGE ONE (09:21)
[2020-02-04] MEDS ORDERED: Sodium Bicarb 50 MEQ/50 ML Abboject 8.4% SYRINGE ONE (09:21)
[2020-02-04] MEDS ORDERED: Papaverine 60 MG/2 ML VIAL ONE (09:21)
[2020-02-04] MEDS ORDERED: ePHEDrine 50 MG/ML VIAL ONE (09:21)
[2020-02-04] MEDS ORDERED: Dexamethasone 20 MG/5 ML VIAL ONE (09:21)
[2020-02-04] MEDS ORDERED: Ondansetron PF 4 MG/2 ML Vial ONE ×2 (09:21→09:37)
[2020-02-04] MEDS ORDERED: Ketorolac Tromethamine 30 MG/ML VIAL ONE (09:21)
[2020-02-04] MEDS ORDERED: PHENYLEPHRINE-NS 100 MCG/ML 10 ML SYRINGE ONE (09:21)
[2020-02-04] MEDS ORDERED: Lidocaine 2% PF 100 mg/5 ml Syringe ONE (09:21)
[2020-02-04] MEDS ORDERED: PROPOFOL 200 MG/20 ML VIAL ONE (09:21)
[2020-02-04] MEDS ORDERED: Cardioplegic Soln 1,000 ML BAG ONE (09:21)
[2020-02-04] MEDS ORDERED: Nitroglycerin 50 MG/250 ML BOT ONE (09:21)
[2020-02-04] MEDS ORDERED: Fentanyl 100 MCG/2 ML VIAL ONE ×2 (09:35→10:25)
[2020-02-04] MEDS ORDERED: Midazolam HCl 2 mg/2 ml Vial ONE ×3 (09:35→10:25)
[2020-02-04] MEDS ORDERED: Metoprolol Tartrate 5 MG/5 ML VIAL ONE (09:48)
[2020-02-04] MEDS ORDERED: Dexmedetomidine 200 MCG/2 ML VIAL ONE (10:26)
[2020-02-04] MEDS ORDERED: Midazolam HCl 5 mg/5 ml Vial ONE (10:26)
[2020-02-04] MEDS ORDERED: Albumin 5% 500 ML ONE (10:29)
[2020-02-04] MEDS ORDERED: Heparin 10,000 UNITS/1 ML VIAL 30,000 UNITS in Sodium Chloride 0.9% 1,000 ML FS SCH (11:00)
--- NOTE | 2020-02-04 11:41 | CON ---
DATE OF CONSULTATION: HISTORY OF PRESENT ILLNESS: This is a 39-year-old gentleman, who underwent cardiac catheterization about a year ago and was found to have about a 50% LAD and a high-grade stenosis in the diagonal. He was treated medically at that time with cardiovascular risk factors including family history, significant hypertension, and dyslipidemia. No diabetes mellitus. No smoking history. The patient then was admitted about four months ago with chest pain, but evidently not felt to be cardiac in etiology, and he was discharged home. He is now readmitted with chest pain and a bump in his troponin to about 4. His blood pressure was quite elevated, but he does state he was taking his medications regularly. He underwent cardiac catheterization showing a subtotal LAD/diagonal disease as well as a fairly well preserved circumflex system and moderate disease in the right coronary artery. Left ventricular systolic function appeared to be preserved. HOME MEDICATIONS: Include 1. Procardia XL 90. 2. Lisinopril 20. 3. Metoprolol 100. 4. Aspirin 81. 5. Plavix 75. 6. Atorvastatin 40. ALLERGIES: NONE KNOWN. PAST SURGICAL HISTORY: Negative. SOCIAL HISTORY: The patient works in a [employer]. He is and accompanied by his . PHYSICAL EXAMINATION: VITAL SIGNS: 5 feet 10 inches, 264 pounds. NECK: No carotid bruits. LUNGS: Clear to auscultation. CARDIAC: Regular rate and rhythm. No murmurs. ABDOMEN: Obese, nontender. EXTREMITIES: He has sheath in the right groin. Palpable pedal pulses. No peripheral edema. PLAN: At this time is for coronary artery bypass grafting to the LAD, diagonal, distal right, and PDA, and informed consent has been obtained from the patient and . Job ID: [id number]
[2020-02-04] MEDS ORDERED: Hetastarch 6% 500 ML 500 ML IVPB PRN (15:04)
[2020-02-04] MEDS ORDERED: hydrALAZINE 20 MG/ML VIAL SLOW IVP PRN (15:04)
[2020-02-04] MEDS ORDERED: Bisacodyl 10 MG SUPP PR PRN (15:04)
[2020-02-04] MEDS ORDERED: Bisacodyl 5 MG TAB PO PRN (15:04)
[2020-02-04] MEDS ORDERED: niCARdipine 25 MG in Sodium Chloride 0.9% 250 ML 240 ML IVPB PRN (15:04)
[2020-02-04] MEDS ORDERED: Morphine 2 MG/ML VIAL SLOW IVP PRN (15:04)
[2020-02-04] MEDS ORDERED: Fentanyl 100 MCG/2 ML VIAL SLOW IVP PRN (15:04)
[2020-02-04] MEDS ORDERED: Mag-Al 1200 mg/1200 mg/30 ML UDCUP PO PRN (15:04)
[2020-02-04] MEDS ORDERED: Promethazine HCl 25 MG/ML VIAL IM PRN (15:04)
[2020-02-04] MEDS ORDERED: Nitroglycerin 50 MG/250 ML BOT 250 ML IVPB PRN (15:04)
[2020-02-04] MEDS ORDERED: DOPamine 400 MG/D5W 250 ML 250 ML IVPB PRN (15:04)
[2020-02-04] MEDS ORDERED: Guaifenesin DM 100-10/5 ML UDCUP PO PRN (15:04)
[2020-02-04] MEDS ORDERED: Post-Op Insulin Drip Protocol IVPB ONE (15:04)
[2020-02-04] MEDS ORDERED: Albumin 5% 250 ML ONE (15:12)
[2020-02-04 15:18] LABS: Actual Bicarbonate (HCO3a) 22.7 mEq/L (22-28); Base Excess (BEa) -2.9 mEq/L (-2.0 to +3.0); CO2 Tension 42.6 mmHg (35.0-45.0); Calcium, Ionized (arterial) 1.09 mmol/L (1.12-1.30); Carboxyhemoglobin (COHb) 0.5 gm% (0.0-3.0); Potassium - ABG Lab 3.83 mmol/L (3.70-5.30); pH, Arterial 7.35 (7.35-7.45)
[2020-02-04 15:19] LABS: Puncture Site Arterial Line
[2020-02-04 15:21] LABS: Hemoglobin 14.8 g/dL (14.0-18.0); INR-International Normal Ratio 1.2; Mean Corpuscular HGB CONC 34.7 g/dL (32.0-36.0); Mean Corpuscular Hemoglobin 33.1 pg (27.0-31.0); Mean Corpuscular Volume 95.2 fL (78.0-98.0); Mean Platelet Volume 8.1 fL (7.4-10.4); PTT 32.3 sec (22.9-36.1); Platelet Count 221 thou/uL (130-400); Prothrombin Time 15.3 sec (12.0-14.7); RBC Distribution Width 13.5 % (11.5-14.5); Red Blood Cell (RBC) Count 4.46 mill/uL (4.70-6.10); White Blood Cell (WBC) Count 23.4 thou/uL (4.8-10.8)
[2020-02-04 15:38] LABS: Band 28 % (5-11); Eosinophils 3 % (0-10); Lymphocytes 5 % (21-51); MDiff Complete? YES; Monocytes 4 % (0-10); Neutrophil 53 % (42-75); Platelet Morphology Comment Appears Adequate; RBC Morphology Normal; Reactive Lymphocytes 7 % (0-10)
[2020-02-04 15:42] LABS: Anion Gap 12 mmol/L (10-20); BUN (Urea Nitrogen) 10 mg/dL (8.9-20.6); Calc. Creatinine Clearance 157 mL/min (70-130); Calcium 7.8 mg/dL (7.8-10.44); Carbon Dioxide 22 mmol/L (22-29); Chloride 110 mmol/L (98-107); Estimated GFR-MDRD 78; Glucose 149 mg/dL (70-105); Potassium 4.3 mmol/L (3.5-5.1); Sodium 140 mmol/L (136-145)
[2020-02-04] MEDS ORDERED: Magnesium 2 GM/50 ML 2 GM in Premix Bag 1 BAG IVPB SCH (15:45)
--- NOTE | 2020-02-04 15:53 | RAD ---
RADIOGRAPH CHEST 1 VIEW: DATE: 02/04/2020 TIME: 3:18 PM HISTORY: 39-year-old male status post open heart surgery COMPARISON: 02/03/2020 FINDINGS: The previously demonstrated infiltrate at the right lung base has resolved. The contralateral left lo wer lobe infiltrate probably has also resolved. There is a new broad right upper lobe infiltrate. Questionable small region of left apical partial opacification. This could be artifact due to lordoti c positioning. New sternotomy wires. New right subclavian central venous catheter in right atrium. New right paramedian lower chest tube. New right basilar medial chest tube. No pulmonary edema or pneumothorax. IMPRESSION: 1) status post very recent open heart surgery, with right subclavian central venous catheter and righ t-sided chest tubes 2) interval resolution of the bilateral lower lobe infiltrates demonstrated on yesterday's chest radi ograph. 3) new right upper lobe infiltrate, and questionable small left apical infiltrate.
[2020-02-04] MEDS ORDERED: HUMULIN R 100 UNITS in Sodium Chloride 0.9% 100 ML IVPB SCH (16:00)
[2020-02-04] MEDS ORDERED: Dextrose 5% in Water 1,000 ML IV PRN (16:00)
[2020-02-04] MEDS ORDERED: Insulin Regular 300 UNITS/3 ML VIAL SC PRN (16:00)
[2020-02-04] MEDS ORDERED: Dextrose 50% Abboject 50 ML SYRINGE SLOW IVP PRN (16:00)
[2020-02-04] MEDS: Aspirin 81 mg Enteric Coated Tablet PO SCH (16:09)
[2020-02-04] MEDS: Sodium Chloride 0.9% 1,000 ML IV SCH (16:10)
--- NOTE | 2020-02-04 16:45 | PDOC.HOSPP ---
- Subjective Encounter Date: 02/04/20 Encounter Time: 16:44 Subjective: post CABG this AM, extubated, alertand oriented - Objective Vital Signs & Weight: Vital Signs (12 hours) Temp BP Pulse Ox 02/04/20 15:37 100 02/04/20 15:00 98.2 F 02/04/20 08:06 137/70 02/04/20 08:00 98.1 F 100 Weight Weight 264 lb 15.93 oz Most Recent Monitor Data Heart Rate from ECG 62 NIBP 95/55 NIBP BP-Mean 68 Respiration from ECG 16 SpO2 100 I&O: 02/03/20 02/04/20 02/05/20 06:59 06:59 06:59 Intake Total 1208 2050 Output Total 600 1720 Balance 608 330 Result Diagrams: 02/04/20 15:01 02/04/20 15:01 Additional Labs: Accuchecks 02/04/20 02/04/20 02/04/20 15:02 13:10 12:46 POC Glucose 146 H 151 H 126 H Radiology Reviewed by me: Yes (clear lung khan, borderline cardiomeagaly) EKG Reviewed by me: Yes (RSR- marked infero-lateral ST-T abnormality) Hospitalist ROS - Medication Medications: Active Medications Generic Name Dose Route Start Last Admin Trade Name Freq PRN Reason Stop Dose Admin Albumin Human 12.5 gm 02/04/20 15:04 02/04/20 16:00 Albumin 5% 12.5 Gm/250 Ml Bot IVPB 02/05/20 15:05 12.5 gm Q6H PRN Administration To Maintain SBP> 90 mmHG Atorvastatin Calcium 40 mg 02/03/20 21:00 02/03/20 22:25 Atorvastatin Calcium 40 Mg Tab PO 40 mg HS LINWOOD Administration Magnesium Sulfate 2 gm/ Device 50 mls @ 50 mls/hr 02/04/20 15:45 02/04/20 15:59 IVPB 02/04/20 17:45 50 mls NOW LINWOOD Administration Insulin Human Regular 0 units 02/04/20 16:00 02/04/20 15:30 Insulin Regular 300 Units/3 Ml Vial SC 3 unit Q4H PRN Administration POST OP SLIDING SCALE Protocol - Exam General Appearance: awake alert Neck: no JVD Heart: RRR, no murmur Respiratory - other findings: coarse BS with rhonchi Gastrointestinal: soft, non-distended, no palpable masses Extremities: 1+ LE edema Hosp A/P (1) NSTEMI (non-ST elevated myocardial infarction) Code(s): I21.4 - NON-ST ELEVATION (NSTEMI) MYOCARDIAL INFARCTION Status: Acute (2) Hypertensive urgency Code(s): I16.0 - HYPERTENSIVE URGENCY Status: Acute (3) CAD (coronary artery disease) Code(s): I25.10 - ATHSCL HEART DISEASE OF [place] CORONARY ARTERY W/O ANG PCTRS Status: Chronic Qualifiers: Coronary Disease-Associated Artery/Lesion type: [place] artery [place] vs. transplanted heart: [place] heart Associated angina: angina presence unspecified Qualified Code(s): I25.10 - Atherosclerotic heart disease of [place] coronary artery without angina pectoris (4) Anxiety Code(s): F41.9 - ANXIETY DISORDER, UNSPECIFIED Status: Chronic (5) Status post aorto-coronary artery bypass graft Code(s): Z95.1 - PRESENCE OF AORTOCORONARY BYPASS GRAFT Status: Acute - Plan no presssors at present chest tubes in discussed at length with Dr Simental
[2020-02-04] MEDS: Ketorolac Tromethamine 30 MG/ML VIAL IVP SCH ×2 (17:53→23:04)
[2020-02-04 18:22] LABS: Glucose 166 mg/dL (70-105)
[2020-02-04] MEDS: Famotidine/PF 20 mg/2ml Vial SLOW IVP SCH (19:56)
[2020-02-04] MEDS: CEFAZOLIN 2 GM in Premix Bag 1 BAG IVPB SCH (19:56)
[2020-02-04] MEDS: Atorvastatin Calcium 40 MG TAB PO SCH (19:57)
[2020-02-04] MEDS: Ondansetron PF 4 MG/2 ML Vial IVP PRN (20:29)
[2020-02-04 20:46] LABS: Hemoglobin 13.3 g/dL (14.0-18.0)
[2020-02-04 21:02] LABS: Glucose 137 mg/dL (70-105)
[2020-02-04] MEDS: Potassium Chloride 20 MEQ/100 ML PREMIX BAG IVPB PRN (21:02)
[2020-02-04] MEDS: HYDROcodone/Acetaminophen 5/325 mg Tablet PO PRN (21:27)
[2020-02-05] MEDS: Fentanyl 100 MCG/2 ML VIAL SLOW IVP PRN ×2 (00:13→04:16)
[2020-02-05] MEDS: HYDROcodone/Acetaminophen 5/325 mg Tablet PO PRN ×4 (02:05→16:51)
[2020-02-05] MEDS: CEFAZOLIN 2 GM in Premix Bag 1 BAG IVPB SCH ×2 (04:07→11:55)
[2020-02-05 04:19] LABS: #Lymphocytes 2.3 thou/uL (1.20-3.40); #Monocytes 1.8 thou/uL (0.11-0.59); #Neutrophils 16.7 thou/uL (1.40-6.50); %Basophils 0.1 % (0.0-1.0); %Eosinophils 0.1 % (0.0-10.0); %Lymphocytes 11.1 % (21.0-51.0); %Monocytes 8.6 % (0.0-10.0); %Neutrophils 80.1 % (42.0-75.0); Hemoglobin 12.8 g/dL (14.0-18.0); Mean Corpuscular HGB CONC 36.3 g/dL (32.0-36.0); Mean Corpuscular Volume 96.4 fL (78.0-98.0); Mean Platelet Volume 7.4 fL (7.4-10.4); Platelet Count 207 thou/uL (130-400); RBC Distribution Width 13.4 % (11.5-14.5); Red Blood Cell (RBC) Count 3.64 mill/uL (4.70-6.10); White Blood Cell (WBC) Count 20.8 thou/uL (4.8-10.8)
[2020-02-05] MEDS: Ondansetron PF 4 MG/2 ML Vial IVP PRN (04:36)
[2020-02-05 04:47] LABS: Anion Gap 13 mmol/L (10-20); BUN (Urea Nitrogen) 13 mg/dL (8.9-20.6); Calc. Creatinine Clearance 174 mL/min (70-130); Calcium 8.2 mg/dL (7.8-10.44); Carbon Dioxide 24 mmol/L (22-29); Chloride 109 mmol/L (98-107); Estimated GFR-MDRD 87; Glucose 117 mg/dL (70-105); Sodium 142 mmol/L (136-145)
[2020-02-05] MEDS: Ketorolac Tromethamine 30 MG/ML VIAL IVP SCH ×4 (05:15→23:04)
[2020-02-05] MEDS: Potassium Chloride 20 MEQ/100 ML PREMIX BAG IVPB PRN (06:08)
[2020-02-05] MEDS: Acetaminophen 325 MG TAB PO PRN (06:12)
--- NOTE | 2020-02-05 06:54 | OP ---
DATE OF PROCEDURE: 02/04/2020 PREOPERATIVE DIAGNOSIS: Coronary artery disease, [id number] myocardial infarction. PROCEDURE PERFORMED: Coronary artery bypass graft x4, left internal mammary artery to a 2 mm LAD, saphenous vein to a 1.25 mm diagonal, 1.25 mm ramus, 1.5 mm PDA. TRANSPORT PILOT: Dr. Mccoy. FINDINGS: The patient had severe left ventricular hypertrophy. DESCRIPTION OF PROCEDURE: After adequate anesthesia had been obtained, the patient was prepped and draped. The left greater saphenous vein was harvested using an endovascular technique by Dr. Mccoy while I performed a median sternotomy. After opening the sternum, right pleura was entered distally. Left internal mammary artery was harvested. Heparinization carried out and the mammary passed posterior to the thymus gland. Aorta and right atrium were cannulated and cardiopulmonary bypass was begun. Heart was elevated to identify vessels and immediately fibrillated. There was severe LVH and cardiomegaly. Aorta was cross-clamped, and after a liter of cold blood cardioplegia was given, 4 distal anastomoses were completed. Cross-clamp was removed and the partial occluding clamp placed and 2 proximal anastomoses performed on the aortic root from the ramus and the PDA. These were marked with rings, and near the ochoa of the ramus graft, the diagonal graft was placed. The patient was then weaned from cardiopulmonary bypass. Cannula was removed and protamine given systemically. Aortic cannulation site secured with a 4-0 Prolene suture. Mediastinal and right pleural drains were placed and the sternum was reapproximated with #7 interrupted wire, using vancomycin paste on the sternal edges, platelet-rich blood and platelet-poor plasma. Subcutaneous tissue and skin were closed in layers. Job ID: [id number]
[2020-02-05] MEDS: Famotidine/PF 20 mg/2ml Vial SLOW IVP SCH ×2 (07:51→19:45)
[2020-02-05] MEDS: Aspirin 325 MG TAB PO SCH (07:52)
--- NOTE | 2020-02-05 08:02 | RAD ---
EXAM: XR Chest 1 View Portable PROVIDED CLINICAL HISTORY: Post open heart COMPARISON: 02/04/2020 FINDINGS: Cardiac silhouette remains enlarged. Median sternotomy changes are redemonstrated. Right subclavian c entral line and mediastinal drains are again seen. Subsegmental atelectasis at the left lung base is noted. The lungs appear otherwise clear. There is no pleural fluid or pneumothorax apparent. IMPRESSION: As above.
--- NOTE | 2020-02-05 08:29 | PRG ---
DATE OF SERVICE: 02/05/2020 The patient is now postoperative day #1 with blood pressure of about 130, heart rate about 70. Chest tube output is 500. Hemoglobin is greater than 12. Creatinine normal. Chest x-ray, cardiomegaly. The patient is awake and alert in the reverse Trendelenburg position because it makes him breathe easier. His lungs are clear. Abdomen is soft and nondistended. Sheath has been removed from his right groin and he has yet to get up into the chair related to this. Plan at this time is to advance activity as tolerated post sheath removal. Job ID: [id number]
[2020-02-05] MEDS: NIFEdipine XL 60 MG TAB PO SCH (08:58)
--- NOTE | 2020-02-05 09:00 | PRG ---
DATE OF SERVICE: SUBJECTIVE: Mr. Riggs is awake and alert. He is having chest soreness. No angina. OBJECTIVE: VITAL SIGNS: Blood pressure 128/74, pulse 66 regular. LUNGS: Clear. CARDIAC: Normal S1, normal S2. ABDOMEN: Obese, nontender. EXTREMITIES: There is no edema. ASSESSMENT: 1. Status post emergency coronary bypass grafting for multivessel coronary disease. 2. Severe hypertension. PLAN: 1. Resume Procardia XL, start 60 mg a day. 2. Resume metoprolol, start 50 mg a day. 3. Resume lisinopril tomorrow. The patient has severe hypertension. Blood pressure will need to be treated. Job ID: [id number]
--- NOTE | 2020-02-05 10:34 | PDOC.HOSPP ---
- Subjective Encounter Date: 02/05/20 Encounter Time: 10:33 Subjective: moderate usculoskeletal chest pain overnite, now ok - Objective Vital Signs & Weight: Vital Signs (12 hours) Temp Pulse BP Pulse Ox 02/05/20 10:00 98.8 F 02/05/20 08:58 61 151/88 H 02/05/20 08:00 98 02/05/20 02:02 61 151/88 H Weight Weight 227 lb 4.745 oz Most Recent Monitor Data Heart Rate from ECG 75 NIBP 124/72 NIBP BP-Mean 89 Respiration from ECG 16 SpO2 90 I&O: 02/04/20 02/05/20 02/06/20 06:59 06:59 06:59 Intake Total 1208 4398.8 340 Output Total 600 3100 330 Balance 608 1298.8 10 Result Diagrams: 02/05/20 04:10 02/05/20 04:10 Additional Labs: Accuchecks 02/05/20 02/05/20 02/05/20 07:10 06:06 05:02 POC Glucose 117 H 135 H 124 H 02/05/20 02/05/20 02/05/20 04:04 03:09 02:03 POC Glucose 124 H 127 H 116 H 02/05/20 02/05/20 02/04/20 00:58 00:11 23:05 POC Glucose 123 H 128 H 133 H 02/04/20 02/04/20 02/04/20 22:08 20:59 20:08 POC Glucose 143 H 127 H 119 H 02/04/20 02/04/20 02/04/20 19:27 15:02 14:21 POC Glucose 138 H 146 H 127 H 02/04/20 02/04/20 02/04/20 13:10 12:46 12:20 POC Glucose 151 H 126 H 121 H 02/04/20 11:28 POC Glucose 115 H Radiology Reviewed by me: Yes (cxr-postop changes, chest tubes x 2) Hospitalist ROS - Medication Medications: Active Medications Generic Name Dose Route Start Last Admin Trade Name Freq PRN Reason Stop Dose Admin Acetaminophen 650 mg 02/04/20 15:04 02/05/20 06:12 Acetaminophen 325 Mg Tab PO 650 mg Q6H PRN Administration Headache/Fever Or Mild Pain Hydrocodone Bitart/Acetaminophen 1 tab 02/04/20 15:04 02/04/20 21:27 Hydrocodone/Acetaminophen 5/325 Mg Tablet PO 1 tab Q4H PRN Administration Moderate Pain (4-6) Hydrocodone Bitart/Acetaminophen 2 tab 02/04/20 15:04 02/05/20 07:52 Hydrocodone/Acetaminophen 5/325 Mg Tablet PO 2 tab Q4H PRN Administration Severe Pain (7-10) Albumin Human 12.5 gm 02/04/20 15:04 02/04/20 16:00 Albumin 5% 12.5 Gm/250 Ml Bot IVPB 02/05/20 15:05 12.5 gm Q6H PRN Administration To Maintain SBP> 90 mmHG Aspirin 325 mg 02/05/20 09:00 02/05/20 07:52 Aspirin 325 Mg Tab PO 325 mg DAILY LINWOOD Administration Atorvastatin Calcium 40 mg 02/03/20 21:00 02/04/20 19:57 Atorvastatin Calcium 40 Mg Tab PO 40 mg HS LINWOOD Administration Famotidine 20 mg 02/04/20 21:00 02/05/20 07:51 Famotidine/Pf 20 Mg/2ml Vial SLOW IVP 20 mg Q12HR LINWOOD Administration Fentanyl 25 mcg 02/04/20 15:04 02/04/20 20:14 Fentanyl 100 Mcg/2 Ml Vial SLOW IVP 02/06/20 14:28 25 mcg Q2H PRN Administration Moderate Pain (4-6) Fentanyl 50 mcg 02/04/20 15:04 02/05/20 04:16 Fentanyl 100 Mcg/2 Ml Vial SLOW IVP 02/06/20 14:28 50 mcg Q2H PRN Administration Severe Pain (7-10) Hydralazine HCl 10 mg 02/04/20 15:04 02/05/20 02:02 Hydralazine 20 Mg/Ml Vial SLOW IVP 10 mg Q6H PRN Administration To Maintain SBP< 140mmHG Cefazolin Sodium/Dextrose 2 gm 50 mls @ 100 mls/hr 02/04/20 20:00 02/05/20 04:07 / Device IVPB 02/05/20 12:29 50 mls 0400,1200,2000 LINWOOD Administration Ketorolac Tromethamine 15 mg 02/04/20 18:00 02/05/20 05:15 Ketorolac Tromethamine 30 Mg/Ml Vial IVP 02/07/20 18:01 15 mg Q6HR LINWOOD Administration Metoprolol Succinate 50 mg 02/05/20 09:00 02/05/20 08:58 Metoprolol Succinate Xl 50 Mg Tab PO 50 mg DAILY LINWOOD Administration Nifedipine 60 mg 02/05/20 09:00 02/05/20 08:58 Nifedipine Xl 60 Mg Tab PO 60 mg DAILY LINWOOD Administration Ondansetron HCl 4 mg 02/04/20 15:04 02/05/20 04:36 Ondansetron Pf 4 Mg/2 Ml Vial IVP 4 mg Q6H PRN Administration Nausea/Vomiting Potassium Chloride 20 meq 02/04/20 15:04 02/05/20 06:08 Potassium Chloride 20 Meq/100 Ml Premix Bag IVPB 20 meq PRN PRN Administration K level </= 4.0 Promethazine HCl 6.25 mg 02/04/20 15:04 02/04/20 21:28 Promethazine Hcl 25 Mg/Ml Vial IM 6.25 mg Q4H PRN Administration Nausea/Vomiting - Exam General Appearance: awake alert Neck: no JVD Heart: RRR, no murmur Respiratory: CTAB Gastrointestinal: soft, normal bowel sounds, no palpable masses Extremities: 1+ LE edema Hosp A/P (1) NSTEMI (non-ST elevated myocardial infarction) Code(s): I21.4 - NON-ST ELEVATION (NSTEMI) MYOCARDIAL INFARCTION Status: Acute (2) Hypertensive urgency Code(s): I16.0 - HYPERTENSIVE URGENCY Status: Acute (3) CAD (coronary artery disease) Code(s): I25.10 - ATHSCL HEART DISEASE OF [place] CORONARY ARTERY W/O ANG PCTRS Status: Chronic Qualifiers: Coronary Disease-Associated Artery/Lesion type: [place] artery [place] vs. transplanted heart: [place] heart Associated angina: angina presence unspecified Qualified Code(s): I25.10 - Atherosclerotic heart disease of [place] coronary artery without angina pectoris (4) Anxiety Code(s): F41.9 - ANXIETY DISORDER, UNSPECIFIED Status: Chronic (5) Status post aorto-coronary artery bypass graft Code(s): Z95.1 - PRESENCE OF AORTOCORONARY BYPASS GRAFT Status: Acute - Plan chest tubes still in, hopefully out later today antihypertensives nifedipine, b-memo reinstituted agressive BP control accu/ss/etc excellent recovery thus far
[2020-02-05 13:12] LABS: Hemoglobin 12.1 g/dL (14.0-18.0); Platelet Count 222 thou/uL (130-400)
--- NOTE | 2020-02-05 13:52 | RAD ---
PORTABLE CHEST: Date: 02/05/2020 HISTORY: Bleeding. COMPARISON: 02/05/2020 exam at 0502 hours. FINDINGS/IMPRESSION: Cardiomegaly with postop sternotomy change again noted. Central line is unchanged overlying the SVC. No acute infiltrate. No interval change from the film this morning. POS: AH
[2020-02-05] MEDS: Atorvastatin Calcium 40 MG TAB PO SCH (19:44)
[2020-02-05] MEDS ORDERED: Enoxaparin Sodium 40 MG/0.4 ML SYRINGE SC SCH (21:00)
[2020-02-06] MEDS: HYDROcodone/Acetaminophen 5/325 mg Tablet PO PRN ×3 (02:10→14:24)
[2020-02-06 05:09] LABS: #Basophils 0.1 thou/uL (0.0-0.2); #Eosinphils 0.1 thou/uL (0.0-0.7); #Lymphocytes 4.4 thou/uL (1.20-3.40); #Monocytes 1.8 thou/uL (0.11-0.59); #Neutrophils 12.8 thou/uL (1.40-6.50); %Basophils 0.4 % (0.0-1.0); %Eosinophils 0.3 % (0.0-10.0); %Monocytes 9.2 % (0.0-10.0); %Neutrophils 67.1 % (42.0-75.0); Hemoglobin 9.9 g/dL (14.0-18.0); Mean Corpuscular HGB CONC 34.2 g/dL (32.0-36.0); Mean Corpuscular Hemoglobin 32.7 pg (27.0-31.0); Mean Corpuscular Volume 95.8 fL (78.0-98.0); Mean Platelet Volume 7.8 fL (7.4-10.4); Platelet Count 193 thou/uL (130-400); RBC Distribution Width 13.6 % (11.5-14.5); Red Blood Cell (RBC) Count 3.01 mill/uL (4.70-6.10); White Blood Cell (WBC) Count 19.1 thou/uL (4.8-10.8)
[2020-02-06] MEDS: Ketorolac Tromethamine 30 MG/ML VIAL IVP SCH ×4 (06:00→23:59)
[2020-02-06 06:04] LABS: Anion Gap 11 mmol/L (10-20); BUN (Urea Nitrogen) 21 mg/dL (8.9-20.6); Calc. Creatinine Clearance 140 mL/min (70-130); Carbon Dioxide 27 mmol/L (22-29); Chloride 106 mmol/L (98-107); Estimated GFR-MDRD 81; Glucose 112 mg/dL (70-105); Potassium 3.8 mmol/L (3.5-5.1); Sodium 140 mmol/L (136-145)
[2020-02-06 06:11] VITALS: BMI 35.0
[2020-02-06] MEDS: Potassium Chloride 20 MEQ/100 ML PREMIX BAG IVPB PRN (06:32)
[2020-02-06] MEDS: Famotidine/PF 20 mg/2ml Vial SLOW IVP SCH (08:43)
[2020-02-06] MEDS: Aspirin 325 MG TAB PO SCH (08:44)
--- NOTE | 2020-02-06 08:47 | ULT ---
EXAM: Limited right inguinal ultrasound HISTORY: Right groin swelling status post cardiac catheterization evaluate for pseudoaneurysm TECHNIQUE: Multiplanar grayscale and color Doppler images were obtained in a right inguinal ultrasoun d. Spectral analysis of the Doppler waveforms were performed of the vessels. COMPARISON: None FINDINGS: The common femoral artery and vein have normal waveforms. There is no evidence of pseudoane urysm. There is a small fluid collection in the right inguinal region measuring 2.4 x 1.0 x 2.3 cm in size without internal flow. IMPRESSION: 1. No evidence of pseudoaneurysm 2. Right inguinal hematoma
--- NOTE | 2020-02-06 08:48 | RAD ---
SINGLE VIEW OF THE CHEST: COMPARISON: 02/05/2020. HISTORY: Status post open heart surgery. FINDINGS: A single view of the chest shows an enlarged but stable cardiomediastinal silhouette. The patient is status post sternotomy. There is opacity in the left lung base which may represent a pleural effusi on and/or adjacent atelectasis. No pneumothorax is seen. The central venous catheter is unchanged i n position. IMPRESSION: 1. Cardiomegaly. 2. Left basilar infiltrate and adjacent pleural effusion. POS: EAA
[2020-02-06] MEDS ORDERED: Lisinopril 20 MG TAB PO SCH (09:00)
[2020-02-06] MEDS ORDERED: Nitroglycerin 0.4 MG TAB (25 Tab Bottle) SL PRN (09:48)
[2020-02-06] MEDS ORDERED: Bisacodyl 5 MG TAB PO PRN (09:48)
[2020-02-06] MEDS ORDERED: Mineral Oil ENEMA PR PRN (09:48)
[2020-02-06] MEDS ORDERED: Mag-Al 1200 mg/1200 mg/30 ML UDCUP PO PRN (09:48)
[2020-02-06] MEDS ORDERED: Guaifenesin DM 100-10/5 ML UDCUP PO PRN (09:48)
[2020-02-06] MEDS ORDERED: Bisacodyl 10 MG SUPP PR PRN (09:48)
[2020-02-06] MEDS ORDERED: Milk Of Magnesia 30 ML UDCUP PO PRN (09:48)
[2020-02-06] MEDS ORDERED: diphenhydrAMINE 25 MG CAP PO PRN (09:48)
[2020-02-06] MEDS ORDERED: Zolpidem Tartrate 5 MG TAB PO PRN (09:48)
[2020-02-06] MEDS ORDERED: HUMULIN R 100 UNITS in Sodium Chloride 0.9% 100 ML IVPB SCH (10:00)
[2020-02-06] MEDS ORDERED: Dextrose 50% Abboject 50 ML SYRINGE SLOW IVP PRN (10:00)
[2020-02-06] MEDS ORDERED: Dextrose 5% in Water 1,000 ML IV PRN (10:00)
[2020-02-06] MEDS ORDERED: Furosemide 40 MG TAB PO SCH (10:00)
[2020-02-06] MEDS ORDERED: Insulin Regular 300 UNITS/3 ML VIAL SC PRN (10:00)
[2020-02-06] MEDS: NIFEdipine XL 60 MG TAB PO SCH (13:17)
--- NOTE | 2020-02-06 15:58 | PDOC.HOSPP ---
- Subjective Encounter Date: 02/06/20 Encounter Time: 15:45 Subjective: f/u for NSTEMI/s/p CABG x 4v POD #2. Some chest wall pain but overall doing ok. - Objective Vital Signs & Weight: Vital Signs (12 hours) Temp Pulse Pulse Pulse Resp BP BP 02/06/20 15:50 98.3 F 92 17 02/06/20 13:17 91 02/06/20 12:54 99.0 F 91 17 02/06/20 12:10 98 107 H 143/91 H 133/77 02/06/20 11:00 98.6 F 02/06/20 09:48 114 H 105 H 115/71 119/65 02/06/20 07:33 02/06/20 07:00 98.2 F 02/06/20 06:00 98.4 F BP Pulse Ox Pulse Ox Pulse Ox 02/06/20 15:50 116/57 L 96 02/06/20 13:17 02/06/20 12:54 108/59 L 93 L 02/06/20 12:10 97 99 02/06/20 11:00 02/06/20 09:48 97 97 02/06/20 07:33 94 L 02/06/20 07:00 02/06/20 06:00 Weight Weight 244 lb 0.827 oz Most Recent Monitor Data Heart Rate from ECG 98 NIBP 143/91 NIBP BP-Mean 108 Respiration from ECG 21 SpO2 97 I&O: 02/05/20 02/06/20 02/07/20 06:59 06:59 06:59 Intake Total 4398.8 1040 650 Output Total 3100 1950 355 Balance 1298.8 -910 295 Result Diagrams: 02/06/20 04:50 02/06/20 04:50 Additional Labs: Accuchecks 02/06/20 11:19 POC Glucose 110 H Laboratory Tests 02/03/20 02/03/20 02/03/20 01:30 02:05 04:11 WBC Hgb Troponin I 0.104 H 0.801 H* Triglycerides Cholesterol LDL Cholesterol, Calc HDL Cholesterol SARS-CoV-2 (PCR) Not Detected 02/03/20 02/03/20 02/04/20 07:29 14:10 03:13 WBC Hgb Troponin I 2.747 H* 4.345 H* Triglycerides 112 Cholesterol 223 H LDL Cholesterol, Calc 157 HDL Cholesterol 44 SARS-CoV-2 (PCR) 02/04/20 02/04/20 02/05/20 15:01 20:22 04:10 WBC 23.4 H 20.8 H Hgb 14.8 13.3 L 12.8 L Troponin I Triglycerides Cholesterol LDL Cholesterol, Calc HDL Cholesterol SARS-CoV-2 (PCR) 02/05/20 13:01 WBC Hgb 12.1 L Troponin I Triglycerides Cholesterol LDL Cholesterol, Calc HDL Cholesterol SARS-CoV-2 (PCR) Radiology Reviewed by me: Yes (PCXR - cardiomegaly, LLL effusion) EKG Reviewed by me: Yes (Tele - SR) Hospitalist ROS - Medication Medications: Active Medications Generic Name Dose Route Start Last Admin Trade Name Freq PRN Reason Stop Dose Admin Acetaminophen 650 mg 02/04/20 15:04 02/05/20 06:12 Acetaminophen 325 Mg Tab PO 650 mg Q6H PRN Administration Headache/Fever Or Mild Pain Hydrocodone Bitart/Acetaminophen 1 tab 02/04/20 15:04 02/04/20 21:27 Hydrocodone/Acetaminophen 5/325 Mg Tablet PO 1 tab Q4H PRN Administration Moderate Pain (4-6) Hydrocodone Bitart/Acetaminophen 2 tab 02/04/20 15:04 02/06/20 14:24 Hydrocodone/Acetaminophen 5/325 Mg Tablet PO 2 tab Q4H PRN Administration Severe Pain (7-10) Aspirin 325 mg 02/05/20 09:00 02/06/20 08:44 Aspirin 325 Mg Tab PO 325 mg DAILY LINWOOD Administration Atorvastatin Calcium 40 mg 02/03/20 21:00 02/05/20 19:44 Atorvastatin Calcium 40 Mg Tab PO 40 mg HS LINWOOD Administration Hydralazine HCl 10 mg 02/04/20 15:04 02/05/20 02:02 Hydralazine 20 Mg/Ml Vial SLOW IVP 10 mg Q6H PRN Administration To Maintain SBP< 140mmHG Ketorolac Tromethamine 15 mg 02/04/20 18:00 02/06/20 12:44 Ketorolac Tromethamine 30 Mg/Ml Vial IVP 02/07/20 18:01 15 mg Q6HR LINWOOD Administration Ondansetron HCl 4 mg 02/04/20 15:04 02/05/20 04:36 Ondansetron Pf 4 Mg/2 Ml Vial IVP 4 mg Q6H PRN Administration Nausea/Vomiting Potassium Chloride 20 meq 02/04/20 15:04 02/06/20 06:32 Potassium Chloride 20 Meq/100 Ml Premix Bag IVPB 20 meq PRN PRN Administration K level </= 4.0 Promethazine HCl 6.25 mg 02/04/20 15:04 02/04/20 21:28 Promethazine Hcl 25 Mg/Ml Vial IM 6.25 mg Q4H PRN Administration Nausea/Vomiting - Exam General Appearance: NAD, awake alert Eye: PERRL, anicteric sclera ENT: normocephalic atraumatic, no oropharyngeal lesions Neck: supple, symmetric, no JVD, no thyromegaly, no lymphadenopathy Heart: RRR, no murmur, no gallops, no rubs, normal peripheral pulses Heart - other findings: S1, S2 Respiratory: no wheezes, no ronchi, normal chest expansion, no tachypnea Respiratory - other findings: diminished in bases Gastrointestinal: soft, non-tender, non-distended, normal bowel sounds, no palpable masses Extremities: no cyanosis, no clubbing, 1+ LE edema Skin: normal turgor Neurological: cranial nerve grossly intact, no new deficit Musculoskeletal: normal tone, normal strength, no muscle wasting Psychiatric: normal affect, A&O x 3 Hosp A/P (1) NSTEMI (non-ST elevated myocardial infarction) Code(s): I21.4 - NON-ST ELEVATION (NSTEMI) MYOCARDIAL INFARCTION Status: Acute Plan: s/p CABG x 4v, continue med mgmt, Cardiac Rehab (2) CAD (coronary artery disease) Code(s): I25.10 - ATHSCL HEART DISEASE OF [place] CORONARY ARTERY W/O ANG PCTRS Status: Chronic Qualifiers: Coronary Disease-Associated Artery/Lesion type: [place] artery [place] vs. transplanted heart: [place] heart Associated angina: angina presence unspecified Qualified Code(s): I25.10 - Atherosclerotic heart disease of [place] coronary artery without angina pectoris Plan: Continue ASA/Lipitor/Metoprolol (3) Hypertension Code(s): I10 - ESSENTIAL (PRIMARY) HYPERTENSION Status: Chronic Qualifiers: Hypertension type: essential hypertension Qualified Code(s): I10 - Essential (primary) hypertension Plan: Stable, relative hypotension currently (4) Status post aorto-coronary artery bypass graft Code(s): Z95.1 - PRESENCE OF AORTOCORONARY BYPASS GRAFT Status: Acute Plan: POD #2, continue routine post-CABG protocol, cardiac rehab - Plan PT/OT, social media marketing specialist, incentive spirometry, out of bed/ambulate, DVT proph w/SCDs Stable overall Continue ASA Continue Lipitor/Metoprolol OOB with PT Continue Lasix 40mg po daily
[2020-02-06] MEDS ORDERED: Amiodarone HCl 150 MG in Dextrose 5% in Water 100 ML IVPB SCH (18:00)
[2020-02-06] MEDS: Famotidine 20 MG TAB PO SCH (20:55)
[2020-02-06] MEDS: Atorvastatin Calcium 40 MG TAB PO SCH (20:55)
[2020-02-06] MEDS: Enoxaparin Sodium 40 MG/0.4 ML SYRINGE SC SCH (20:55)
[2020-02-06] MEDS ORDERED: Digoxin 0.5 MG/2 ML AMP ONE (21:37)
[2020-02-06] MEDS ORDERED: Digoxin 0.5 MG/2 ML AMP SLOW IVP SCH (21:45)
[2020-02-07] MEDS: Amiodarone HCl 450 MG in Dextrose 5% in Water 250 ML IVPB SCH ×2 (03:51→21:16)
[2020-02-07] MEDS: Ketorolac Tromethamine 30 MG/ML VIAL IVP SCH ×3 (06:10→17:21)
[2020-02-07] MEDS: Potassium Chloride 10 MEQ TAB PO SCH (08:55)
[2020-02-07] MEDS: Aspirin 325 MG TAB PO SCH (08:55)
[2020-02-07] MEDS: Famotidine 20 MG TAB PO SCH ×2 (08:55→20:25)
[2020-02-07] MEDS: Furosemide 40 MG TAB PO SCH (08:55)
--- NOTE | 2020-02-07 12:00 | PDOC.HOSPP ---
- Subjective Encounter Date: 02/07/20 Encounter Time: 11:50 Subjective: f/u for CAD s/p CABG x 4v POD #3. PAF overnight receiving Digoxin/Amiodarone/Metoprolol now in SR with mild tachycardia. No new complaints. - Objective Vital Signs & Weight: Vital Signs (12 hours) Temp Pulse Pulse Pulse Resp BP BP 02/07/20 11:10 99.3 F 94 12 02/07/20 08:52 111 H 102 H 143/101 H 140/80 02/07/20 07:30 98.6 F 103 H 18 02/07/20 04:00 98.0 F 96 15 02/07/20 01:16 02/07/20 00:30 81 20 BP Pulse Ox 02/07/20 11:10 137/69 94 L 02/07/20 08:52 02/07/20 07:30 173/81 H 94 L 02/07/20 04:00 139/79 96 02/07/20 01:16 96 02/07/20 00:30 125/71 Weight Weight 247 lb 8 oz Most Recent Monitor Data Heart Rate from ECG 98 NIBP 143/91 NIBP BP-Mean 108 Respiration from ECG 21 SpO2 97 I&O: 02/06/20 02/07/20 02/08/20 06:59 06:59 06:59 Intake Total 1040 1650 Output Total 1950 2455 Balance -910 -805 Result Diagrams: 02/06/20 04:50 02/06/20 04:50 Additional Labs: Accuchecks 02/07/20 02/07/20 02/06/20 11:02 05:41 20:54 POC Glucose 155 H 100 113 H Laboratory Tests 02/03/20 02/03/20 02/03/20 01:30 02:05 04:11 WBC Hgb Troponin I 0.104 H 0.801 H* Triglycerides Cholesterol LDL Cholesterol, Calc HDL Cholesterol SARS-CoV-2 (PCR) Not Detected 02/03/20 02/03/20 02/04/20 07:29 14:10 03:13 WBC Hgb Troponin I 2.747 H* 4.345 H* Triglycerides 112 Cholesterol 223 H LDL Cholesterol, Calc 157 HDL Cholesterol 44 SARS-CoV-2 (PCR) 02/04/20 02/04/20 02/05/20 15:01 20:22 04:10 WBC 23.4 H 20.8 H Hgb 14.8 13.3 L 12.8 L Troponin I Triglycerides Cholesterol LDL Cholesterol, Calc HDL Cholesterol SARS-CoV-2 (PCR) 02/05/20 13:01 WBC Hgb 12.1 L Troponin I Triglycerides Cholesterol LDL Cholesterol, Calc HDL Cholesterol SARS-CoV-2 (PCR) Radiology Reviewed by me: Yes (PCXR 02/06/20 - L basilar infiltrate, cardiomegaly, post-surgical changes) EKG Reviewed by me: Yes (Tele - sinus tach currently, PAF overnight) Hospitalist ROS - Medication Medications: Active Medications Generic Name Dose Route Start Last Admin Trade Name Freq PRN Reason Stop Dose Admin Acetaminophen 650 mg 02/04/20 15:04 02/05/20 06:12 Acetaminophen 325 Mg Tab PO 650 mg Q6H PRN Administration Headache/Fever Or Mild Pain Hydrocodone Bitart/Acetaminophen 1 tab 02/04/20 15:04 02/04/20 21:27 Hydrocodone/Acetaminophen 5/325 Mg Tablet PO 1 tab Q4H PRN Administration Moderate Pain (4-6) Hydrocodone Bitart/Acetaminophen 2 tab 02/04/20 15:04 02/06/20 14:24 Hydrocodone/Acetaminophen 5/325 Mg Tablet PO 2 tab Q4H PRN Administration Severe Pain (7-10) Aspirin 325 mg 02/05/20 09:00 02/07/20 08:55 Aspirin 325 Mg Tab PO 325 mg DAILY LINWOOD Administration Atorvastatin Calcium 40 mg 02/03/20 21:00 02/06/20 20:55 Atorvastatin Calcium 40 Mg Tab PO 40 mg HS LINOWOD Administration Enoxaparin Sodium 40 mg 02/06/20 21:00 02/06/20 20:55 Enoxaparin Sodium 40 Mg/0.4 Ml Syringe SC 40 mg 2100 LINWOOD Administration Famotidine 20 mg 02/06/20 21:00 02/07/20 08:55 Famotidine 20 Mg Tab PO 20 mg BID LINWOOD Administration Furosemide 40 mg 02/07/20 09:00 02/07/20 08:55 Furosemide 40 Mg Tab PO 40 mg DAILY LINWOOD Administration Hydralazine HCl 10 mg 02/04/20 15:04 02/05/20 02:02 Hydralazine 20 Mg/Ml Vial SLOW IVP 10 mg Q6H PRN Administration To Maintain SBP< 140mmHG Amiodarone HCl 450 mg/ 259 mls @ 0 mls/hr 02/06/20 18:00 02/07/20 03:51 Miscellaneous Medication 1 IVPB 259 mls each/ Dextrose/Water INF LINWOOD Administration Protocol As Directed Ketorolac Tromethamine 15 mg 02/04/20 18:00 02/07/20 06:10 Ketorolac Tromethamine 30 Mg/Ml Vial IVP 02/07/20 18:01 15 mg Q6HR LINWOOD Administration Metoprolol Succinate 50 mg 02/07/20 09:00 02/07/20 08:56 Metoprolol Succinate Xl 50 Mg Tab PO 50 mg DAILY LINWOOD Administration Ondansetron HCl 4 mg 02/04/20 15:04 02/05/20 04:36 Ondansetron Pf 4 Mg/2 Ml Vial IVP 4 mg Q6H PRN Administration Nausea/Vomiting Potassium Chloride 20 meq 02/04/20 15:04 02/06/20 06:32 Potassium Chloride 20 Meq/100 Ml Premix Bag IVPB 20 meq PRN PRN Administration K level </= 4.0 Potassium Chloride 10 meq 02/07/20 08:00 02/07/20 08:55 Potassium Chloride 10 Meq Tab PO 10 meq QAM-WM LINWOOD Administration Promethazine HCl 6.25 mg 02/04/20 15:04 02/04/20 21:28 Promethazine Hcl 25 Mg/Ml Vial IM 6.25 mg Q4H PRN Administration Nausea/Vomiting - Exam General Appearance: NAD, awake alert Eye: PERRL, anicteric sclera ENT: normocephalic atraumatic, no oropharyngeal lesions Neck: supple, symmetric Heart: RRR, no gallops, no rubs, normal peripheral pulses Heart - other findings: S1, S2 Respiratory: CTAB, no wheezes, no ronchi, no tachypnea Respiratory - other findings: diminished in bases bilat L>R Gastrointestinal: soft, non-tender, non-distended, normal bowel sounds, no palpable masses Gastrointestinal - other findings: obese Extremities: no cyanosis, no clubbing, no edema Skin: normal turgor Neurological: cranial nerve grossly intact, no new deficit Musculoskeletal: normal tone, normal strength, no muscle wasting Psychiatric: normal affect, A&O x 3 Hosp A/P (1) NSTEMI (non-ST elevated myocardial infarction) Code(s): I21.4 - NON-ST ELEVATION (NSTEMI) MYOCARDIAL INFARCTION Status: Acute (2) CAD (coronary artery disease) Code(s): I25.10 - ATHSCL HEART DISEASE OF [place] CORONARY ARTERY W/O ANG PCTRS Status: Chronic Qualifiers: Coronary Disease-Associated Artery/Lesion type: [place] artery [place] vs. transplanted heart: [place] heart Associated angina: angina presence unspecified Qualified Code(s): I25.10 - Atherosclerotic heart disease of [place] coronary artery without angina pectoris Plan: s/p emergent CABG x 4v POD #3, continue ASA/Lipitor/Metoprolol (3) Paroxysmal atrial fibrillation Code(s): I48.0 - PAROXYSMAL ATRIAL FIBRILLATION Status: Acute Plan: Continue Amiodarone/Metoprolol, current NSR, s/p Digoxin x 1 dose (4) Hypertension Code(s): I10 - ESSENTIAL (PRIMARY) HYPERTENSION Status: Chronic Qualifiers: Hypertension type: essential hypertension Qualified Code(s): I10 - Essential (primary) hypertension Plan: Labile, titrate HTN regimen and monitor clinically (5) Status post aorto-coronary artery bypass graft Code(s): Z95.1 - PRESENCE OF AORTOCORONARY BYPASS GRAFT Status: Acute Plan: POD #3, see above for mgmt - Plan social media content specialist, respiratory therapy, out of bed/ambulate, DVT proph w/SCDs Stable overall Continue ASA Continue Lipitor/Metoprolol Continue Amiodarone converting to po option OOB with PT Continue Lasix 40mg po daily
[2020-02-07] MEDS: HYDROcodone/Acetaminophen 5/325 mg Tablet PO PRN (15:14)
[2020-02-07] MEDS: Amiodarone 200 MG TAB PO SCH (20:24)
[2020-02-07] MEDS: Atorvastatin Calcium 40 MG TAB PO SCH (20:25)
[2020-02-07] MEDS: Enoxaparin Sodium 40 MG/0.4 ML SYRINGE SC SCH (20:25)
[2020-02-07] MEDS: Acetaminophen 325 MG TAB PO PRN (20:38)
[2020-02-08] MEDS: Acetaminophen 325 MG TAB PO PRN (04:51)
[2020-02-08] MEDS: HYDROcodone/Acetaminophen 5/325 mg Tablet PO PRN ×3 (04:52→11:47)
[2020-02-08 06:45] LABS: Anion Gap 14 mmol/L (10-20); BUN (Urea Nitrogen) 17 mg/dL (8.9-20.6); Calc. Creatinine Clearance 162 mL/min (70-130); Calcium 8.6 mg/dL (7.8-10.44); Carbon Dioxide 24 mmol/L (22-29); Chloride 104 mmol/L (98-107); Estimated GFR-MDRD 88; Glucose 106 mg/dL (70-105); Potassium 3.6 mmol/L (3.5-5.1); Sodium 138 mmol/L (136-145)
--- NOTE | 2020-02-08 07:54 | PDOC.HOSPP ---
- Subjective Encounter Date: 02/08/20 Encounter Time: 10:45 Subjective: Patient ambulating well. No chest pain. Minimal cough. Ready to go home. Dr. Mccoy came by this morning and cleared him for discharge and wrote d/c prescriptions. - Objective Vital Signs & Weight: Vital Signs (12 hours) Temp Pulse Resp BP BP Pulse Ox 02/08/20 03:44 99.3 F 97 21 H 151/87 H 94 L 02/08/20 01:45 94 L 02/08/20 00:00 136/82 02/07/20 20:22 99.4 F 95 14 126/82 94 L Weight Weight 244 lb 6.4 oz Most Recent Monitor Data Heart Rate from ECG 98 NIBP 143/91 NIBP BP-Mean 108 Respiration from ECG 21 SpO2 97 I&O: 02/07/20 02/08/20 02/09/20 06:59 06:59 06:59 Intake Total 1650 1386.5 Output Total 2455 1070 Balance -805 316.5 Result Diagrams: 02/06/20 04:50 02/08/20 06:18 Additional Labs: Accuchecks 02/08/20 02/07/20 02/07/20 05:38 16:09 11:02 POC Glucose 103 H 119 H 155 H Hospitalist ROS - Review of Systems Constitutional: denies: fever, chills Respiratory: denies: shortness of breath Cardiovascular: denies: chest pain, palpitations Gastrointestinal: denies: nausea, vomiting, abdominal pain - Medication Medications: Active Medications Generic Name Dose Route Start Last Admin Trade Name Freq PRN Reason Stop Dose Admin Acetaminophen 650 mg 02/04/20 15:04 02/08/20 04:51 Acetaminophen 325 Mg Tab PO 650 mg Q6H PRN Administration Headache/Fever Or Mild Pain Hydrocodone Bitart/Acetaminophen 1 tab 02/04/20 15:04 02/08/20 04:52 Hydrocodone/Acetaminophen 5/325 Mg Tablet PO 1 tab Q4H PRN Administration Moderate Pain (4-6) Hydrocodone Bitart/Acetaminophen 2 tab 02/04/20 15:04 02/07/20 15:14 Hydrocodone/Acetaminophen 5/325 Mg Tablet PO 2 tab Q4H PRN Administration Severe Pain (7-10) Amiodarone HCl 400 mg 02/07/20 21:00 02/07/20 20:24 Amiodarone 200 Mg Tab PO 400 mg BID LIN[place]OD Administration Aspirin 325 mg 02/05/20 09:00 02/07/20 08:55 Aspirin 325 Mg Tab PO 325 mg DAILY LIN[place]OD Administration Atorvastatin Calcium 40 mg 02/03/20 21:00 02/07/20 20:25 Atorvastatin Calcium 40 Mg Tab PO 40 mg HS LINWOOD Administration Enoxaparin Sodium 40 mg 02/06/20 21:00 02/07/20 20:25 Enoxaparin Sodium 40 Mg/0.4 Ml Syringe SC 40 mg 2100 LINWOOD Administration Famotidine 20 mg 02/06/20 21:00 02/07/20 20:25 Famotidine 20 Mg Tab PO 20 mg BID LIN[place]OD Administration Furosemide 40 mg 02/07/20 09:00 02/07/20 08:55 Furosemide 40 Mg Tab PO 40 mg DAILY LIN[place] Administration Hydralazine HCl 10 mg 02/04/20 15:04 02/05/20 02:02 Hydralazine 20 Mg/Ml Vial SLOW IVP 10 mg Q6H PRN Administration To Maintain SBP< 140mmHG Insulin Human Regular 0 units 02/06/20 10:00 02/07/20 14:47 Insulin Regular 300 Units/3 Ml Vial SC 3 units Q4H PRN Administration POST OP SLIDING SCALE Protocol Metoprolol Succinate 50 mg 02/07/20 09:00 02/07/20 08:56 Metoprolol Succinate Xl 50 Mg Tab PO 50 mg DAILY LINWOOD Administration Ondansetron HCl 4 mg 02/04/20 15:04 02/05/20 04:36 Ondansetron Pf 4 Mg/2 Ml Vial IVP 4 mg Q6H PRN Administration Nausea/Vomiting Potassium Chloride 20 meq 02/04/20 15:04 02/06/20 06:32 Potassium Chloride 20 Meq/100 Ml Premix Bag IVPB 20 meq PRN PRN Administration K level </= 4.0 Potassium Chloride 10 meq 02/07/20 08:00 02/07/20 08:55 Potassium Chloride 10 Meq Tab PO 10 meq QAM-WM LIN[place]OD Administration Promethazine HCl 6.25 mg 02/04/20 15:04 02/04/20 21:28 Promethazine Hcl 25 Mg/Ml Vial IM 6.25 mg Q4H PRN Administration Nausea/Vomiting - Exam General Appearance: NAD, awake alert ENT: moist mucosa Heart: RRR, no murmur, no gallops, no rubs Heart - other findings: sternotomy incision closed, C/D/I Respiratory: CTAB, no wheezes, no rales, no ronchi Gastrointestinal: soft, non-tender, non-distended, normal bowel sounds Psychiatric: normal affect, normal behavior, A&O x 3 Hosp A/P - Plan (1) NSTEMI (non-ST elevated myocardial infarction) Code(s): I21.4 - NON-ST ELEVATION (NSTEMI) MYOCARDIAL INFARCTION Status: Acute (2) CAD (coronary artery disease) Code(s): I25.10 - ATHSCL HEART DISEASE OF [place] CORONARY ARTERY W/O ANG PCTRS Status: Chronic Qualifiers: Coronary Disease-Associated Artery/Lesion type: [place] artery [place] vs. transplanted heart: [place] heart Associated angina: angina presence unspecified Qualified Code(s): I25.10 - Atherosclerotic heart disease of [place] coronary artery without angina pectoris Plan: s/p emergent CABG x 4v POD #3, continue ASA/Lipitor/Metoprolol (3) Paroxysmal atrial fibrillation Code(s): I48.0 - PAROXYSMAL ATRIAL FIBRILLATION Status: Acute Plan: Continue Amiodarone/Metoprolol, current NSR, s/p Digoxin x 1 dose (4) Hypertension Code(s): I10 - ESSENTIAL (PRIMARY) HYPERTENSION Status: Chronic Qualifiers: Hypertension type: essential hypertension Qualified Code(s): I10 - Essential (primary) hypertension Plan: Labile, titrate HTN regimen and monitor clinically (5) Status post aorto-coronary artery bypass graft Code(s): Z95.1 - PRESENCE OF AORTOCORONARY BYPASS GRAFT Status: Acute Plan: POD #3, see above for mgmt Stable overall Continue ASA Continue Lipitor/Metoprolol Continue Amiodarone converting to po option OOB with PT Continue Lasix 40mg po daily Stable to d/c home with outpatient cardiac rehab.
[2020-02-08] MEDS: Famotidine 20 MG TAB PO SCH (08:01)
[2020-02-08] MEDS: Amiodarone 200 MG TAB PO SCH (08:02)
[2020-02-08] MEDS: Aspirin 325 MG TAB PO SCH (08:02)
[2020-02-08] MEDS: Furosemide 40 MG TAB PO SCH (08:03)
[2020-02-08] MEDS: Potassium Chloride 10 MEQ TAB PO SCH (08:03)
[2020-02-08] MEDS ORDERED: Lisinopril 5 MG TAB PO SCH (09:00)
[2020-02-08 11:43] VITALS: TEMP 98.4
[2020-02-08 11:54] VITALS: BP 145/81
--- NOTE | 2020-02-08 14:32 | DIS ---
DATE OF ADMISSION: 02/03/2020 DATE OF DISCHARGE: 02/08/2020 PRIMARY CARE PHYSICIAN: Petra Roberto. REASON FOR ADMISSION: Chest pain. DIAGNOSES AT DISCHARGE: 1. Spc-CA-tadgfneyl myocardial infarction. 2. Coronary artery disease, status post coronary artery bypass grafting x4 vessels. 3. Paroxysmal atrial fibrillation. 4. Hypertension. PROCEDURES: 1. Cardiac catheterization showing 99% LAD lesion with slow antegrade flow, diagonal 90% lesion, 60% RCA lesion, and left ventricular ejection fraction of 60%. 2. Coronary artery bypass grafting x4 vessels. 3. Right inguinal ultrasound showing no evidence for a pseudoaneurysm, just a right inguinal hematoma. CONSULTATIONS: 1. Cardiology, Dr. Simental. 2. Cardiovascular Surgery, Dr. Espinoza. SUMMARY OF HOSPITAL COURSE: This is a 39-year-old male with a history of known coronary artery disease with previous NM in 2019, who presented with chest and back discomforts similar to previous NM. The patient was found to have an indeterminate troponin. He was admitted to the hospital. Dr. Simental was consulted. He did a cardiac catheterization with above results. The patient was then brought back for a CABG by Dr. Espinoza. He has been doing well postoperatively. He did have a significant drop in his hemoglobin a couple of days ago. An ultrasound was done of his groin to make sure he did not have a pseudoaneurysm; however, just a moderate-size hematoma was found, and he has been ambulating well with cardiac rehab and is ready for discharge today. DISCHARGE MANAGEMENT: Discharged home. ACTIVITY: As tolerated. No driving. He is to shower daily, but no bath or hot tub or pool and no lifting over 15 pounds. DIET: Heart-healthy diet. THERAPY: Outpatient cardiac rehab. FOLLOWUP: Follow up with [facility] on February 11 at 1:15 p.m., with Dr. Espinoza on February 23 at 3 p.m., and with Dr. Simental in 3 to 4 weeks. DISCHARGE MEDICATIONS: 1. Amiodarone 400 mg twice a day. Prescription written by Dr. Espinoza. 2. Atorvastatin 40 mg at night. 3. Aspirin 81 mg daily. 4. Clopidogrel 75 mg daily. 5. Lisinopril 10 mg daily. 6. Metoprolol succinate 100 mg daily. Job ID: [id number]
--- NOTE | 2020-02-09 16:49 | DIS ---
DATE OF ADMISSION: 02/03/2020 DATE OF DISCHARGE: 02/08/2020 DIAGNOSES: 1. Coronary artery disease. 2. Hypertension. 3. Dyslipidemia. PROCEDURES: 1. Cardiac catheterization. 2. Coronary artery bypass grafting x4. a. Left internal mammary artery to LAD. b. Saphenous vein graft to diagonal, ramus, and PDA. DESCRIPTION OF HOSPITAL STAY: Mr. Riggs was admitted with chest pain. He has had multiple admissions and catheterizations in the past. He underwent cardiac catheterization this admission with an elevated troponin. He was found to have severe three-vessel disease. He was taken to the operating room and underwent bypass as above on 02/04. Postoperatively, he has done well. He had a brief period of atrial fibrillation which was initially controlled with amiodarone drip. Now, he is on oral amiodarone. At the time of discharge, he is ambulatory, tolerating regular diet, having good bowel and bladder function. Incisions are clean and dry without evidence of infection. DISCHARGE MEDICATIONS: Include, 1. Lisinopril 10 mg daily. 2. Amiodarone taper dose. 3. Aspirin 81 mg daily. 4. Lipitor 40 mg at bedtime. 5. Plavix 75 mg daily. 6. Metoprolol 100 mg daily. FOLLOWUP: Follow up is with Dr. Espinoza in [address] Simental in a month. Job ID: [id number]
[2020-02-11 16:30] LABS: Actual Bicarbonate (HCO3a) 18.6 mEq/L (22-28); Analyzer IN Cardio OR; Base Excess (BEa) -7.3 mEq/L (-2.0 to +3.0); CO2 Tension 39.1 mmHg (35.0-45.0); Carboxyhemoglobin (COHb) 0.8 gm% (0.0-3.0); Hemoglobin (Hb) 14.3 g/dL (14.0-18.0); O2 Tension (PaO2), arterial 75.4 mmHg (80.0-100.0); Potassium - ABG Lab 3.36 mmol/L (3.70-5.30)
[2020-02-11 16:30] LABS: Actual Bicarbonate (HCO3a) 18.6 mEq/L (22-28); Analyzer IN Cardio OR; Base Excess (BEa) -6.1 mEq/L (-2.0 to +3.0); CO2 Tension 35.1 mmHg (35.0-45.0); Calcium, Ionized (arterial) 1.12 mmol/L (1.12-1.30); Carboxyhemoglobin (COHb) 0.9 gm% (0.0-3.0); Hemoglobin (Hb) 16.2 g/dL (14.0-18.0); O2 Tension (PaO2), arterial 74.1 mmHg (80.0-100.0); Potassium - ABG Lab 3.72 mmol/L (3.70-5.30); pH, Arterial 7.34 (7.35-7.45)
[2020-02-11 16:31] LABS: Analyzer IN Cardio OR; Base Excess (BEa) -3.6 mEq/L (-2.0 to +3.0); CO2 Tension 31.3 mmHg (35.0-45.0); Calcium, Ionized (arterial) 0.96 mmol/L (1.12-1.30); Carboxyhemoglobin (COHb) 0.2 gm% (0.0-3.0); Hemoglobin (Hb) 11.4 g/dL (14.0-18.0); O2 Tension (PaO2), arterial 324.9 mmHg (80.0-100.0); pH, Arterial 7.42 (7.35-7.45)
[2020-02-11 16:31] LABS: Actual Bicarbonate (HCO3a) 21.6 mEq/L (22-28); Analyzer IN Cardio OR; Base Excess (BEa) -4.1 mEq/L (-2.0 to +3.0); CO2 Tension 41.7 mmHg (35.0-45.0); Calcium, Ionized (arterial) 1.03 mmol/L (1.12-1.30); Carboxyhemoglobin (COHb) 0.8 gm% (0.0-3.0); Hemoglobin (Hb) 13.8 g/dL (14.0-18.0); O2 Tension (PaO2), arterial 341.9 mmHg (80.0-100.0); pH, Arterial 7.33 (7.35-7.45)
[2020-02-11 16:31] LABS: Actual Bicarbonate (HCO3a) 25.5 mEq/L (22-28); Analyzer IN Cardio OR; Base Excess (BEa) -0.3 mEq/L (-2.0 to +3.0); CO2 Tension 46.5 mmHg (35.0-45.0); Calcium, Ionized (arterial) 0.96 mmol/L (1.12-1.30); Carboxyhemoglobin (COHb) 0.3 gm% (0.0-3.0); Hemoglobin (Hb) 11.7 g/dL (14.0-18.0); O2 Tension (PaO2), arterial 265.5 mmHg (80.0-100.0); pH, Arterial 7.36 (7.35-7.45)
[2020-02-11 16:32] LABS: Puncture Site Arterial Line
[2020-02-11 16:32] LABS: Puncture Site Arterial Line
[2020-02-11 16:33] LABS: Puncture Site Arterial Line
[2020-02-11 16:33] LABS: Puncture Site Arterial Line
[2020-02-11 16:34] LABS: Puncture Site Arterial Line
== END 2020-02-08 13:12 | disposition home or self-care (01) | DRG 234 ==
LOC: ERS 01:17 → ERHOLD 02:49 → OBSVTOIN 02:49 → CCU 22:05 → 2NO 02-06 12:54
PROVIDERS: ADMIT Internal Medicine; ATTEND Internal Medicine
PROC: 02100Z9 Bypass Coronary Artery, One Artery from Left Internal Mammary, Open Approach (ICD-10-PCS; principal; 2020-02-04)
PROC: B2111ZZ Fluoroscopy of Multiple Coronary Arteries using Low Osmolar Contrast (ICD-10-PCS; 2020-02-04)
PROC: 021209W Bypass Coronary Artery, Three Arteries from Aorta with Autologous Venous Tissue, Open Approach (ICD-10-PCS; 2020-02-04)
PROC: 06BQ4ZZ Excision of Left Saphenous Vein, Percutaneous Endoscopic Approach (ICD-10-PCS; 2020-02-04)
PROC: 5A1221Z Performance of Cardiac Output, Continuous (ICD-10-PCS; 2020-02-04)
PROC: B2151ZZ Fluoroscopy of Left Heart using Low Osmolar Contrast (ICD-10-PCS; 2020-02-04)
PROC: 4A023N7 Measurement of Cardiac Sampling and Pressure, Left Heart, Percutaneous Approach (ICD-10-PCS; 2020-02-04)
DX: I21.4 Non-ST elevation (NSTEMI) myocardial infarction (principal); R71.0 Precipitous drop in hematocrit; F41.9 Anxiety disorder, unspecified; I25.110 Atherosclerotic heart disease of native coronary artery with unstable angina pectoris; I10 Essential (primary) hypertension; I48.0 Paroxysmal atrial fibrillation; E66.9 Obesity, unspecified; I16.0 Hypertensive urgency; I25.2 Old myocardial infarction; Z79.01 Long term (current) use of anticoagulants; Z79.899 Other long term (current) drug therapy; Z79.82 Long term (current) use of aspirin; Z68.35 Body mass index [BMI] 35.0-35.9, adult; Z20.828 Contact with and (suspected) exposure to other viral communicable diseases
CPT/HCPCS: 36415; 36416; 36430; 71045; 76936; 76942; 80048; 80053; 80061; 82550; 82553; 82805; 83690; 83735; 84443; 84484; 85025; 85610; 85730; 86850; 86900; 86901; 87635; 93005; 93010; 93458; 93798; 94760; 96365; 96366; 96375; 97139; 99152; 99153; J0282; J0360; J0690; J1100; J1160; J1644; J1650; J1815; J1885; J2001; J2250; J2270; J2405; J2440; J2550; J2704; J2720; J3010; J3370; J3475; J3480; J3490; J7050; J7070; P9045; Q0162; Q9967; S0017; S0028; U0003

== ENCOUNTER 2020-02-12 12:17 | Inpatient (IN) | payer SELFPAY ==
[2020-02-12] MEDS ORDERED: Aspirin Chewable 81 MG TAB ONE (12:27)
[2020-02-12] MEDS ORDERED: Ondansetron PF 4 MG/2 ML Vial ONE (12:30)
[2020-02-12 13:07] LABS: #Eosinphils 0.1 thou/uL (0.0-0.7); #Lymphocytes 3.2 thou/uL (1.20-3.40); #Monocytes 1.7 thou/uL (0.11-0.59); #Neutrophils 14.6 thou/uL (1.40-6.50); %Basophils 0.3 % (0.0-1.0); %Eosinophils 0.4 % (0.0-10.0); %Lymphocytes 16.3 % (21.0-51.0); %Monocytes 8.8 % (0.0-10.0); %Neutrophils 74.2 % (42.0-75.0); Hemoglobin 9.9 g/dL (14.0-18.0); Mean Corpuscular Hemoglobin 31.8 pg (27.0-31.0); Mean Corpuscular Volume 96.1 fL (78.0-98.0); Mean Platelet Volume 6.9 fL (7.4-10.4); Platelet Count 588 thou/uL (130-400); RBC Distribution Width 13.1 % (11.5-14.5); Red Blood Cell (RBC) Count 3.13 mill/uL (4.70-6.10); White Blood Cell (WBC) Count 19.6 thou/uL (4.8-10.8)
[2020-02-12 13:23] LABS: INR-International Normal Ratio 1.2
[2020-02-12 13:27] LABS: ALT (SGPT) 40 U/L (8-55); AST (SGOT) 37 U/L (5-34); Albumin 3.6 g/dL (3.5-5.0); Alkaline Phosphatase 59 U/L (40-110); Anion Gap 17 mmol/L (10-20); BUN (Urea Nitrogen) 15 mg/dL (8.9-20.6); Bilirubin, Total 0.9 mg/dL (0.2-1.2); Calc. Creatinine Clearance 0 mL/min (70-130); Calcium 8.5 mg/dL (7.8-10.44); Carbon Dioxide 25 mmol/L (22-29); Chloride 100 mmol/L (98-107); Globulin 2.7 g/dL (2.4-3.5); Glucose 125 mg/dL (70-105); Potassium 4.5 mmol/L (3.5-5.1); Protein, Total 6.3 g/dL (6.0-8.3); Sodium 137 mmol/L (136-145)
[2020-02-12 13:30] LABS: D-Dimer Test 4.3 *mcg/mL (0.27-0.43)
--- NOTE | 2020-02-12 13:48 | RAD ---
PORTABLE CHEST: 02/12/20 HISTORY: Chest pain. COMPARISON: 02/06/20. Cardiomegaly with postop sternotomy change. Left lung base is poorly evaluated due to the cardiomegal y. I cannot exclude left basilar atelectasis or infiltrates. Lungs otherwise appear clear. No evidence of vascular congestion or edema. IMPRESSION: Opacification of the left lung base obscures the left hemidiaphragm suggesting effusion and possibly left basilar atelectasis and/or infiltrate. Findings are similar to 02/06/20. POS: AGW
--- NOTE | 2020-02-12 14:17 | CT ---
CTA Angio Chest W WO Con 02/12/2020 1:43 PM Indication: History of CABG last Monday with weakness and chest pain Technique: Multiple CTA images were obtained of the thorax with IV contrast. 3-D rendering: MIP salina nstructed images were created and reviewed. Comparison: Prior CT PE examination dated October 24, 2018 Findings: Pulmonary arteries: No central or segmental pulmonary embolus is evident. Heart and Aorta: There is postsurgical change of a interval CABG. There is a loculated pericardial a nd epicardial fluid collections present. There is gas present within the anterior mediastinum and anterior right chest wall. Mediastinum:As above Lungs:There is a loculated small left pleural effusion. There is compressive atelectasis of the left lower lobe. There is airspace opacity with some associated volume loss involving the posterior medial right lower lobe. There are areas of subsegmental volume loss involving the left upper lobe an d lingula. Pleural space: Small left pleural effusion, mildly loculated Upper Abdomen: No acute abnormality. Osseous Structures: No acute osseous abnormality. Soft tissues:No abnormality. Other findings:None. Impression: 1. No central or segmental pulmonary embolus. 2. Large loculated pericardial and moderate sized epicardial effusion. This may be post operative in nature. 3. Small foci of gas within the anterior mediastinum and right para midline anterior chest wall is li danielle postoperative in nature. 4. Small loculated left-sided pleural effusion with compressive atelectasis of the left lower lobe. S uspected subsegmental atelectasis of the right lower lobe. Component of pneumonia in the right lower lobe cannot be excluded. Aspiration could have a similar appearance.
[2020-02-12] MEDS ORDERED: Iopamidol-370 76% 500 ML 1 ML ONE (14:25)
[2020-02-12 14:32] LABS: Lactic Acid 1.3 mmol/L (0.5-2.2)
[2020-02-12] MEDS ORDERED: Ondansetron ODT 4 MG TAB PO PRN (15:20)
[2020-02-12] MEDS ORDERED: Senokot S 8.6-50 MG TAB PO PRN (15:20)
[2020-02-12] MEDS ORDERED: Sodium Chloride 0.9% 100 ML ONE ×2 (15:43→20:57)
[2020-02-12] MEDS ORDERED: Cefepime 2 GM VIAL ONE (15:43)
[2020-02-12] MEDS ORDERED: Piperacillin/Tazobactam 4.5 GM in Sodium Chloride 0.9% 100 ML IVPB SCH (18:00)
[2020-02-12 18:15] LABS: Troponin I 0.149 ng/mL (< 0.028)
[2020-02-12 18:50] LABS: SARS-CoV-2 NAA Rapid Test Not Detected (NotDetected)
--- NOTE | 2020-02-12 20:44 | HP ---
CONSULTATIONS ON THE CASE: 1. Vincent Espinoza MD, [facility]. 2. Dimitris Simental MD, Cardiology. REASON FOR ADMISSION: Syncope. HISTORY OF PRESENT ILLNESS: This is a very pleasant 39-year-old male gentleman with recent past history of coronary artery disease, status post four-vessel bypass surgery done and discharged from [facility] on 02/09/2020, presents back to the emergency room today as brought in by the patient's after calling 911 as the patient lost consciousness while he was eating his lunch. According to the patient, after discharge from the hospital, he has been having issues with sleep and was also in some stress because of all the events that have recently occurred and thinks the current symptomatology was caused by the same. The patient in the recent past was admitted for history of chest discomfort and had similar issues in June 2018, where he had a myocardial infarction at that point of time, subsequently was evaluated here and diagnosed with a three-vessel disease with full blocks where he was advised an immediate bypass surgery, which was carried on without any complications. Postsurgically, patient had elevated white blood cell count of 19,000, but the patient remained afebrile and was hemodynamically optimized with normal walking. No significant complaints and at this point of time, the patient was advised for discharge with outpatient followup with cardiac rehab. Unfortunately, patient's current symptomatology returned and he presented and was evaluated in the emergency room. Last echocardiogram done in June 2018 showed an ejection fraction of 55%. Currently, patient is having immediate urgent echocardiogram evaluation to assess the same. Per my review with the patient's emergency room physician in the ER, CT scan of the chest showed evidence of pericardial effusion with suspicion for mediastinitis. We will closely monitor and admit the patient to CCU for further evaluation and review. PAST MEDICAL HISTORY: 1. Benign essential hypertension. 2. History of myocardial infarction in June. 3. History of nephrolithiasis. 4. Anxiety disorder. 5. Coronary artery disease. 6. Obesity. PAST SURGICAL HISTORY: Status post CABG with a four-vessel bypass surgery. SOCIAL HISTORY: Patient is fully independent. Lives with his family. Social alcohol drinking noted. Denies any tobacco or drug abuse. FAMILY HISTORY: Strong family history of coronary artery disease with premature onset, both on his mother's side as well as the father's side. Couple of his maternal uncles had premature coronary artery disease. ALLERGIES: NO KNOWN DRUG ALLERGIES. MEDICATIONS AT HOME: 1. Plavix 75 mg daily. 2. Aspirin 81 mg daily. 3. Atorvastatin 40 mg daily. 4. Pepcid 20 mg b.i.d. The patient's metoprolol and lisinopril are on hold for low blood pressure. REVIEW OF SYSTEMS: Except as documented, all systems reviewed and negative. PHYSICAL EXAMINATION: GENERAL: This is a 39-year-old male gentleman lying in his hospital bed, not in acute distress. Alert, oriented. VITAL SIGNS: Has a blood pressure of 100/68 mmHg, respiratory rate of 16 per minute, saturation 100% on 2 L of oxygen. Has an airway, which is clear. HEENT: Atraumatic, normocephalic. NECK: Supple. No bruit. No lymphadenopathy. No JVD. CVS: S1, S2. No abnormal rhythms or murmurs. CHEST: Bilateral air entry present. No rhonchi. No wheeze. Medial chest surgical scar noted. NEUROLOGIC: The patient is alert, oriented x3. No focal motor or sensory deficits noted. HEME: No ecchymoses or petechiae. PSYCH: No depression or anxiety. DIAGNOSTICS: WBC is 19.6, hemoglobin 9.9, hematocrit 30.1, platelets of 588. PT is 15.0, INR is 1.2. Sodium 137, potassium 4.5, chloride 100, carbon dioxide 25, BUN 15, creatinine 1.49. AST 37, ALT 40. BNP is 235.9. Troponin is elevated at 0.191 and 0.160. Type and crossmatch have been reviewed. CTA of the chest has been reviewed, shows no central or segmental pulmonary embolism, large loculated pericardial and moderate-sized epicardial effusion. This may be postoperative in nature. Small foci of gas within the anterior mediastinum and right paramidline anterior chest wall are likely postoperative. Small loculated left-sided pleural effusion with compressive atelectasis of the left lower lobe. Suspected subsegmental atelectasis of the right lower lobe component, no pneumonia in the right lower lobe cannot be excluded. Aspiration could have been a similar appearance. ASSESSMENT: 1. Syncope, likely possibilities could be vasovagal in nature versus sepsis. We will continue to monitor the patient on CCU unit. Both Cardiology as well as [facility] have been consulted. 2. Coronary artery disease with recent history of coronary artery bypass grafting. The patient currently on Plavix, aspirin, and statins. 3. Anxiety disorder. 4. Benign essential hypertension, on metoprolol as well as lisinopril, which are on hold secondary to low blood pressure. 5. Obesity. This is chronic in nature. 6. Pericardial and pleural effusion with a likely chance of parapneumonic effusion noted for which IV antibiotics have also been started which included Zosyn and vancomycin. PLAN: Discussed in detail of the diagnosis, treatment and followup with the patient. I have advised the patient and family in regard to sleep apnea complications, which the patient has on a long-term basis and he will be following up with outpatient Pulmonary Services for diagnosis of the same and probably start CPAP in the near future. The patient has been advised about septic workup. Appreciate Dr. Espinoza's review and discussion. We will start the patient on IV Zosyn and vancomycin and run some blood culture sensitivities at this point of time. Discharge planning will depend on further hospital course. Advance directives are DNR. Job ID: [id number]
[2020-02-12] MEDS ORDERED: Piperacillin/Tazobactam 4.5 GM VIAL ONE ×2 (20:57→20:58)
[2020-02-12 22:08] LABS: Troponin I 0.119 ng/mL (< 0.028)
[2020-02-12 22:31] VITALS: BMI 40.6
[2020-02-12] MEDS: Atorvastatin Calcium 40 MG TAB PO SCH (22:53)
[2020-02-12] MEDS: Acetaminophen 325 MG TAB PO PRN (22:53)
[2020-02-12] MEDS: Famotidine 20 MG TAB PO SCH (22:53)
--- NOTE | 2020-02-13 00:50 | CON ---
DATE OF CONSULTATION: 02/12/2020 INDICATION FOR CONSULTATION: A 39-year-old patient, recently underwent bypass surgery, who had a syncopal episode today. HISTORY OF PRESENT ILLNESS: This is a very unfortunate 39-year-old gentleman who has been seen by Dr. Simental in the past, recently underwent cardiac catheterization back in January of this year just recently and then underwent bypass surgery by Dr. Espinoza with a DRAKE to the left anterior descending artery, saphenous vein graft to the diagonal branch, ramus and posterior descending artery. He was found at that time to have significant left ventricular hypertrophy. He also suffered a [id number] elevation myocardial infarction at that time. He has been doing quite well. He said he has been doing better every day at home, but then today he said he was not feeling well. He developed some nausea. He started gagging and then he had a syncopal episode. His said he was out for about 10 seconds, so when he came to, he felt better, but then presented to the emergency room. Usually his blood pressure at home has been in the 130s. When he arrived here, it was in the 80s to 90s systolically. Echocardiogram shows evidence of a pericardial effusion with also some anterior as well as mediastinal what appears to be blood clot. Does not appear to have any tamponade physiology, however, could be his blood pressure is low due to the increased thrombus postoperatively in the myocardial space and in the mediastinum. At this time, he appears to be relatively comfortable. Blood pressure is still in the 90s. Otherwise, he denied any chest pain or any other significant symptoms. PAST MEDICAL HISTORY: Significant for coronary artery disease as noted above. SOCIAL HISTORY: No history of alcohol or tobacco abuse. MEDICATIONS: On discharge included Plavix 75 mg a day, Lipitor 40 mg a day, lisinopril 10 mg a day, aspirin 81 mg a day, metoprolol 100 mg daily. He had previously been on nifedipine, Procardia XL 90 mg a day, and that medicine was held and was it stopped on his discharge, he has not been taking this medication. REVIEW OF SYSTEMS: Unremarkable except as noted in the history of present illness. ALLERGIES: NONE. PHYSICAL EXAMINATION: GENERAL: Reveals a morbidly obese gentleman who is in no acute distress. At this time, he is in the emergency room. He is comfortable. VITAL SIGNS: Blood pressure is still in the 90s systolically. Heart rate is 75 and shows a sinus rhythm. He is afebrile. HEENT: Shows the head to be normocephalic and atraumatic. Carotid pulses are present. There were no bruits. CHEST: Has decreased breath sounds on the left side, which maybe due to atelectasis from previous surgery. Otherwise, there were no rales, rhonchi, or wheezing noted. CARDIOVASCULAR: Reveals a regular rate and rhythm. Heart sounds are somewhat distant. He has a well-healing mediastinal incision. No evidence of infection. ABDOMEN: Shows morbid obesity. EXTREMITIES: Showed no clubbing, cyanosis, or edema. Pedal pulses are difficult to palpate. NEUROLOGIC: The patient appears to be intact. SKIN: Warm and dry. LABORATORY DATA: Shows a hemoglobin of 9.9 with a platelet count of 30.1, WBC of 19.6 with a platelet count of 588,000. Sodium was 137, potassium 4.5, BUN was 15 with a creatinine of 1.49. Blood sugar was 129. His troponin I has continued to decline since the patient has been here, is not increasing. Does not appear to be myocardial infarction. Troponin I was 0.19, decreased down to 0.16 and the third set was 0.14. His BNP was 235. He had an echocardiogram performed today which shows an ejection fraction of 50% to 55% with a moderate pericardial effusion. Chest x-ray does shows cardiomegaly which may be due to the mediastinal hematoma. IMPRESSION: 1. Young 39-year-old gentleman who recently underwent bypass surgery. He had a syncopal episode today. He has been found to have mediastinal and pericardial effusions, for which may need to undergo further evaluation or treatment. He will be seen by Dr. Espinoza. I believe Dr. Simental has already spoken with him and decide whether or not he will need to have this mediastinum irrigated and the clots removed to see whether or not this will improve the blood pressure. In the meantime, we will hold off on his antihypertensive medications and we will give IV fluids to increase the blood pressure. Otherwise, he seems to be doing quite well. As far as his other medical problems, these will be dealt with by the primary care service. He does have elevated blood sugar. He may be a diabetic. I do not see that he is taking any diabetic medications. 2. History of hypertension. We will continue him on the lisinopril once the blood pressure stabilizes. 3. Hypercholesterolemia. He will remain on the Lipitor. ADDENDUM: Please note that the patient also was discharged on amiodarone. He is taking 400 mg b.i.d. for atrial fibrillation postoperatively. We will continue this medication. At this time he does remain in a sinus rhythm. Job ID: [id number]
[2020-02-13] MEDS: Piperacillin/Tazobactam 4.5 GM in Sodium Chloride 0.9% 100 ML IVPB SCH ×4 (04:16→23:43)
[2020-02-13 04:25] LABS: ALT (SGPT) 26 U/L (8-55); AST (SGOT) 21 U/L (5-34); Albumin 2.8 g/dL (3.5-5.0); Alkaline Phosphatase 46 U/L (40-110); Anion Gap 14 mmol/L (10-20); BUN (Urea Nitrogen) 16 mg/dL (8.9-20.6); Bilirubin, Total 0.7 mg/dL (0.2-1.2); Calc. Creatinine Clearance 142 mL/min (70-130); Calcium 8.2 mg/dL (7.8-10.44); Carbon Dioxide 21 mmol/L (22-29); Chloride 106 mmol/L (98-107); Globulin 2.8 g/dL (2.4-3.5); Glucose 91 mg/dL (70-105); Protein, Total 5.6 g/dL (6.0-8.3); Sodium 137 mmol/L (136-145)
[2020-02-13] MEDS: Vancomycin 1 GM in Premix Bag 1 BAG IVPB SCH ×2 (06:17→17:44)
[2020-02-13] MEDS: Lactated Ringer's 1,000 ML IV SCH ×2 (06:17→13:33)
--- NOTE | 2020-02-13 07:21 | PRG ---
DATE OF SERVICE: 02/13/2020 The patient has been stable overnight with a recorded blood pressures in the 115 to 140 range. His resting heart rate has been in the 80s. He has no complaints except he has not been able to sleep well since his surgery. Dr. Simental has reviewed the cardiac echo and feels that he has a loculated effusion and would benefit from drainage if possible. I have discussed this with the patient today and he is considering his options. If he is agreeable, then we will proceed later this morning with a pericardial window through the lower portion of his incision. I have also explained to him if infection is found that his entire incision may be opened. Questions have been answered and decision will be forthcoming. Job ID: [id number]
[2020-02-13] MEDS ORDERED: Enoxaparin Sodium 30 MG/0.3 ML SYRINGE SC SCH (09:00)
[2020-02-13] MEDS: Famotidine 20 MG TAB PO SCH ×2 (09:08→21:00)
[2020-02-13] MEDS: Aspirin 81 mg Enteric Coated Tablet PO SCH (09:08)
[2020-02-13] MEDS: Clopidogrel Bisulfate 75 MG TAB PO SCH (09:08)
[2020-02-13 09:14] LABS: #Basophils 0.1 thou/uL (0.0-0.2); #Eosinphils 0.1 thou/uL (0.0-0.7); #Lymphocytes 2.6 thou/uL (1.20-3.40); #Monocytes 1.1 thou/uL (0.11-0.59); %Basophils 0.5 % (0.0-1.0); %Eosinophils 0.7 % (0.0-10.0); %Lymphocytes 17.2 % (21.0-51.0); %Monocytes 7.5 % (0.0-10.0); %Neutrophils 74.1 % (42.0-75.0); Hemoglobin 8.7 g/dL (14.0-18.0); Mean Corpuscular HGB CONC 33.7 g/dL (32.0-36.0); Mean Corpuscular Hemoglobin 32.7 pg (27.0-31.0); Mean Corpuscular Volume 96.9 fL (78.0-98.0); Mean Platelet Volume 7.1 fL (7.4-10.4); Platelet Count 460 thou/uL (130-400); RBC Distribution Width 13.4 % (11.5-14.5); Red Blood Cell (RBC) Count 2.67 mill/uL (4.70-6.10); White Blood Cell (WBC) Count 14.8 thou/uL (4.8-10.8)
[2020-02-13] MEDS: Amiodarone 200 MG TAB PO SCH ×2 (09:35→20:59)
[2020-02-13] MEDS ORDERED: Midazolam HCl 2 mg/2 ml Vial ONE (10:51)
--- NOTE | 2020-02-13 10:53 | PDOC.HOSPP ---
- Subjective Encounter Date: 02/13/20 ( ) Encounter Time: 07:20 Subjective: Patient seen and examined bedside today, patient's is present bedside today, patient is plan for pericardial window - Objective Vital Signs & Weight: Vital Signs (12 hours) Temp Pulse Ox 02/13/20 08:00 98 02/13/20 07:30 99.2 F 02/13/20 04:41 97.4 F L 02/12/20 23:57 97.4 F L Weight Weight 252 lb 3.2 oz Most Recent Monitor Data Heart Rate from ECG 92 NIBP 134/94 NIBP BP-Mean 107 Respiration from ECG 18 SpO2 95 Result Diagrams: 02/13/20 08:57 02/13/20 04:00 Radiology Reviewed by me: Yes EKG Reviewed by me: Yes Hospitalist ROS - Review of Systems Constitutional: denies: fever, chills, sweats, weakness, malaise, other Respiratory: denies: cough, dry, shortness of breath, hemoptysis, SOB with excertion, pleuritic pain, sputum, wheezing, other Cardiovascular: denies: chest pain, palpitations, orthopnea, paroxysmal noc. dyspnea, edema, light headedness, other Gastrointestinal: denies: nausea, vomiting, abdominal pain, diarrhea, constipation, melena, hematochezia, other Genitourinary: denies: dysuria, frequency, incontinence, hematuria, retention, other Musculoskeletal: denies: neck pain, shoulder pain, arm pain, back pain, hand pain, leg pain, foot pain, other - Medication Medications: Active Medications Generic Name Dose Route Start Last Admin Trade Name Adolfoq PRN Reason Stop Dose Admin Acetaminophen 650 mg 02/12/20 15:20 02/12/20 22:53 Acetaminophen 325 Mg Tab PO 650 mg Q4H PRN Administration Headache/Fever/Mild Pain (1-3) Amiodarone HCl 400 mg 02/13/20 09:00 02/13/20 09:35 Amiodarone 200 Mg Tab PO 400 mg BID LINWOOD Administration Aspirin 81 mg 02/13/20 09:00 02/13/20 09:08 Aspirin 81 Mg Enteric Coated Tablet PO Not Given DAILY LINWOOD Atorvastatin Calcium 40 mg 02/12/20 21:00 02/12/20 22:53 Atorvastatin Calcium 40 Mg Tab PO 40 mg HS LINWOOD Administration Clopidogrel Bisulfate 75 mg 02/13/20 09:00 02/13/20 09:08 Clopidogrel Bisulfate 75 Mg Tab PO Not Given DAILY LINWOOD Famotidine 20 mg 02/12/20 21:00 02/13/20 09:08 Famotidine 20 Mg Tab PO Not Given BID LINWOOD Vancomycin HCl 1 gm/ Device 200 mls @ 200 mls/hr 02/13/20 06:00 02/13/20 06:17 IVPB 200 mls 0600,1800 LINWOOD Administration Piperacillin Sod/Tazobactam 100 mls @ 200 mls/hr 02/13/20 05:00 02/13/20 04:16 Sod 4.5 gm/ Sodium Chloride IVPB 100 mls 0500,1100,1700,2300 LINWOOD Administration Lactated Ringer's 1,000 mls @ 150 mls/hr 02/13/20 06:15 02/13/20 06:17 Lactated Ringer's IV 1,000 mls .[id number] LINWOOD Administration Metoprolol Succinate 100 mg 02/13/20 09:00 02/13/20 09:35 Metoprolol Succinate Xl 100 Mg Tab PO 100 mg DAILY LINWOOD Administration - Exam General Appearance: NAD, awake alert Eye: PERRL, anicteric sclera ENT: normocephalic atraumatic, no oropharyngeal lesions Neck: supple, symmetric, no JVD, no thyromegaly Heart: RRR, no murmur, no gallops, no rubs Heart - other findings: Surgical site clean and healthy Respiratory: no wheezes, no rales, no ronchi Gastrointestinal: soft, non-tender, non-distended, normal bowel sounds Extremities: no cyanosis, no clubbing, no edema Skin: normal turgor, no lesions Neurological: no new deficit Musculoskeletal: normal tone, normal strength Psychiatric: normal affect, normal behavior Hosp A/P (1) Pericardial effusion Code(s): I31.3 - PERICARDIAL EFFUSION (NONINFLAMMATORY) Status: Acute (2) Pleural effusion Code(s): J90 - PLEURAL EFFUSION, NOT ELSEWHERE CLASSIFIED Status: Acute (3) Syncope Code(s): R55 - SYNCOPE AND COLLAPSE Status: Acute Qualifiers: Syncope type: vasovagal syncope Qualified Code(s): R55 - Syncope and collapse (4) Paroxysmal atrial fibrillation Code(s): I48.0 - PAROXYSMAL ATRIAL FIBRILLATION Status: Chronic (5) Anxiety Code(s): F41.9 - ANXIETY DISORDER, UNSPECIFIED Status: Chronic (6) CAD (coronary artery disease) Code(s): I25.10 - ATHSCL HEART DISEASE OF [place] CORONARY ARTERY W/O ANG PCTRS Status: Chronic Qualifiers: Coronary Disease-Associated Artery/Lesion type: [place] artery [place] vs. transplanted heart: [place] heart Associated angina: angina presence uns pecified Qualified Code(s): I25.10 - Atherosclerotic heart disease of [place] coronary artery without angina pectoris (7) Hypertension Code(s): I10 - ESSENTIAL (PRIMARY) HYPERTENSION Status: Chronic Qualifiers: Hypertension type: essential hypertension Qualified Code(s): I10 - Essential (primary) hypertension (8) Obesity, Class III, BMI 40-49.9 (morbid obesity) Code(s): E66.01 - MORBID (SEVERE) OBESITY DUE TO EXCESS CALORIES Status: Chronic (9) Acute kidney injury Code(s): N17.9 - ACUTE KIDNEY FAILURE, UNSPECIFIED Status: Resolved (10) Normocytic normochromic anemia Code(s): D64.9 - ANEMIA, UNSPECIFIED Status: Chronic (11) Elevated troponin Code(s): R77.8 - OTHER SPECIFIED ABNORMALITIES OF PLASMA PROTEINS Status: Acute - Plan old records reviewed/req, plan discussed w/ family, continue antibiotics Regarding loculated pericardial effusion patient is plan for pericardial window Patient is on empiric antibiotic therapy with vancomycin and Zosyn for possible infection We will follow up on pericardial fluid culture Cardiology and cardiovascular surgeon recommendation appreciated Discussed with the patient's Medication reviewed and continue provide symptomatic and supportive care Continue IV fluid
[2020-02-13] MEDS ORDERED: Fentanyl 100 MCG/2 ML VIAL ONE ×2 (10:56→12:42)
[2020-02-13] MEDS ORDERED: Rocuronium Bromide 10 MG/ML (10ML VIAL) ONE (11:26)
[2020-02-13] MEDS ORDERED: Ondansetron PF 4 MG/2 ML Vial ONE (11:26)
[2020-02-13] MEDS ORDERED: Glycopyrrolate 0.2 MG/ML 5 ML SYRINGE ONE (11:26)
[2020-02-13] MEDS ORDERED: Succinylcholine 200 MG/10 ml SYRINGE FS ONE (11:26)
[2020-02-13] MEDS ORDERED: Lidocaine 1% PF 5 ML VIAL ONE (11:26)
[2020-02-13] MEDS ORDERED: HYDROcodone/Acetaminophen 5/325 mg Tablet PO PRN (13:29)
[2020-02-13] MEDS ORDERED: Fentanyl 100 MCG/2 ML VIAL SLOW IVP PRN (13:29)
[2020-02-13] MEDS: HYDROcodone/Acetaminophen 5/325 mg Tablet PO PRN ×2 (13:47→21:00)
[2020-02-13] MEDS: Ketorolac Tromethamine 30 MG/ML VIAL IVP SCH ×2 (17:43→23:43)
[2020-02-13] MEDS: Enoxaparin Sodium 40 MG/0.4 ML SYRINGE SC SCH (21:00)
[2020-02-13] MEDS: Atorvastatin Calcium 40 MG TAB PO SCH (21:00)
[2020-02-13] MEDS: Zolpidem Tartrate 5 MG TAB PO PRN (21:00)
[2020-02-14] MEDS: Piperacillin/Tazobactam 4.5 GM in Sodium Chloride 0.9% 100 ML IVPB SCH ×4 (04:58→23:21)
[2020-02-14] MEDS: Ketorolac Tromethamine 30 MG/ML VIAL IVP SCH ×2 (05:00→10:59)
[2020-02-14] MEDS: Vancomycin 1 GM in Premix Bag 1 BAG IVPB SCH (05:44)
--- NOTE | 2020-02-14 07:35 | PRG ---
DATE OF SERVICE: 02/14/2020 The patient put out about 75 mL from his pericardial drain overnight. He is feeling well except for some mild incisional pain. Vital signs are stable. I have encouraged the patient to get up and begin his physical therapy again and consider removing the drain this weekend and discharge. Job ID: [id number]
[2020-02-14] MEDS: Amiodarone 200 MG TAB PO SCH (08:27)
[2020-02-14] MEDS: Aspirin 81 mg Enteric Coated Tablet PO SCH (08:28)
[2020-02-14] MEDS: Famotidine 20 MG TAB PO SCH ×2 (08:28→20:53)
[2020-02-14] MEDS: Clopidogrel Bisulfate 75 MG TAB PO SCH (08:28)
[2020-02-14] MEDS: Polyethylene Glycol 3350 17 GM Packet PO SCH (08:30)
[2020-02-14 09:31] LABS: Vancomycin, Trough 20.1 ug/mL
--- NOTE | 2020-02-14 10:39 | PDOC.HOSPP ---
- Subjective Encounter Date: 02/14/20 Encounter Time: 08:25 Subjective: Patient seen and examined bedside today, no overnight event, no new complaint, no fever, - Objective Vital Signs & Weight: Vital Signs (12 hours) Temp Pulse Resp BP Pulse Ox 02/14/20 07:36 75 16 126/70 96 02/14/20 03:48 99.0 F 84 18 114/64 95 02/14/20 03:06 95 Weight Weight 252 lb 3.2 oz Most Recent Monitor Data Heart Rate from ECG 92 NIBP 134/94 NIBP BP-Mean 107 Respiration from ECG 18 SpO2 95 I&O: 02/13/20 02/14/20 02/15/20 06:59 06:59 06:59 Intake Total 720 Output Total 1680 80 Balance -960 -80 Result Diagrams: 02/13/20 08:57 02/13/20 04:00 EKG Reviewed by me: Yes Hospitalist ROS - Review of Systems Constitutional: denies: fever, chills, sweats, weakness, malaise, other Respiratory: denies: cough, dry, shortness of breath, hemoptysis, SOB with excertion, pleuritic pain, sputum, wheezing, other Cardiovascular: denies: chest pain, palpitations, orthopnea, paroxysmal noc. dys pnea, edema, light headedness, other Gastrointestinal: denies: nausea, vomiting, abdominal pain, diarrhea, constipation, melena, hematochezia, other Genitourinary: denies: dysuria, frequency, incontinence, hematuria, retention, other Musculoskeletal: denies: neck pain, shoulder pain, arm pain, back pain, hand pain, leg pain, foot pain, other - Medication Medications: Active Medications Generic Name Dose Route Start Last Admin Trade Name Freq PRN Reason Stop Dose Admin Acetaminophen 650 mg 02/12/20 15:20 02/12/20 22:53 Acetaminophen 325 Mg Tab PO 650 mg Q4H PRN Administration Headache/Fever/Mild Pain (1-3) Hydrocodone Bitart/Acetaminophen 1 tab 02/13/20 13:29 02/13/20 21:00 Hydrocodone/Acetaminophen 5/325 Mg Tablet PO 1 tab Q4H PRN Administration Pain Amiodarone HCl 400 mg 02/13/20 09:00 02/14/20 08:27 Amiodarone 200 Mg Tab PO 400 mg BID LINWOOD Administration Aspirin 81 mg 02/13/20 09:00 02/14/20 08:28 Aspirin 81 Mg Enteric Coated Tablet PO 81 mg DAILY LINWO[place] Administration Atorvastatin Calcium 40 mg 02/12/20 21:00 02/13/20 21:00 Atorvastatin Calcium 40 Mg Tab PO 40 mg HS LINWOOD Administration Clopidogrel Bisulfate 75 mg 02/13/20 09:00 02/14/20 08:28 Clopidogrel Bisulfate 75 Mg Tab PO 75 mg DAILY [facility] Administration Enoxaparin Sodium 40 mg 02/13/20 21:00 02/13/20 21:00 Enoxaparin Sodium 40 Mg/0.4 Ml Syringe SC 40 mg 2100 LINWOOD Administration Famotidine 20 mg 02/12/20 21:00 02/14/20 08:28 Famotidine 20 Mg Tab PO 20 mg BID LINWOOD Administration Fentanyl 25 mcg 02/13/20 13:29 02/13/20 15:04 Fentanyl 100 Mcg/2 Ml Vial SLOW IVP 02/15/20 13:30 25 mcg ONE PRN Administration Pain Vancomycin HCl 1 gm/ Device 200 mls @ 200 mls/hr 02/13/20 06:00 02/14/20 05:44 IVPB 200 mls 0600,1800 LIN[place] Administration Piperacillin Sod/Tazobactam 100 mls @ 200 mls/hr 02/13/20 05:00 02/14/20 04:58 Sod 4.5 gm/ Sodium Chloride IVPB 100 mls 0500,1100,1700,2300 [place] Administration Ketorolac Tromethamine 15 mg 02/13/20 18:00 02/14/20 05:00 Ketorolac Tromethamine 30 Mg/Ml Vial IVP 02/14/20 14:00 15 mg Q6HR [facility] Administration Metoprolol Succinate 100 mg 02/13/20 09:00 02/14/20 08:28 Metoprolol Succinate Xl 100 Mg Tab PO 100 mg DAILY [facility] Administration Polyethylene Glycol 17 gm 02/14/20 09:00 02/14/20 08:30 Polyethylene Glycol 3350 17 Gm Packet PO Not Given DAILY [facility] Zolpidem Tartrate 5 mg 02/13/20 16:02 02/13/20 21:00 Zolpidem Tartrate 5 Mg Tab PO 5 mg HSPRN PRN Administration Insomnia - Exam General Appearance: NAD, awake alert Eye: PERRL, anicteric sclera ENT: normocephalic atraumatic, no oropharyngeal lesions Neck: symmetric, no JVD, no thyromegaly Heart: RRR, no murmur, no gallops, no rubs Respiratory: no wheezes, no rales, no ronchi Respiratory - other findings: Surgical site with a dressing, drain in place Gastrointestinal: soft, non-tender, non-distended, normal bowel sounds Extremities: no cyanosis, no clubbing, no edema Skin: normal turgor, no lesions Neurological: no focal deficits Musculoskeletal: normal tone, normal strength Psychiatric: normal affect, normal behavior Hosp A/P (1) Pericardial effusion Code(s): I31.3 - PERICARDIAL EFFUSION (NONINFLAMMATORY) Status: Acute (2) Pleural effusion Code(s): J90 - PLEURAL EFFUSION, NOT ELSEWHERE CLASSIFIED Status: Acute (3) Syncope Code(s): R55 - SYNCOPE AND COLLAPSE Status: Acute Qualifiers: Syncope type: vasovagal syncope Qualified Code(s): R55 - Syncope and collapse (4) Paroxysmal atrial fibrillation Code(s): I48.0 - PAROXYSMAL ATRIAL FIBRILLATION Status: Chronic (5) Anxiety Code(s): F41.9 - ANXIETY DISORDER, UNSPECIFIED Status: Chronic (6) CAD (coronary artery disease) Code(s): I25.10 - ATHSCL HEART DISEASE OF [place] CORONARY ARTERY W/O ANG PCTRS Status: Chronic Qualifiers: Coronary Disease-Associated Artery/Lesion type: [place] artery [place] vs. transplanted heart: [place] heart Associated angina: angina presence unspecified Qualified Code(s): I25.10 - Atherosclerotic heart disease of [place] coronary artery without angina pectoris (7) Hypertension Code(s): I10 - ESSENTIAL (PRIMARY) HYPERTENSION Status: Chronic Qualifiers: Hypertension type: essential hypertension Qualified Code(s): I10 - Essential (primary) hypertension (8) Obesity, Class III, BMI 40-49.9 (morbid obesity) Code(s): E66.01 - MORBID (SEVERE) OBESITY DUE TO EXCESS CALORIES Status: Chronic (9) Acute kidney injury Code(s): N17.9 - ACUTE KIDNEY FAILURE, UNSPECIFIED Status: Resolved (10) Normocytic normochromic anemia Code(s): D64.9 - ANEMIA, UNSPECIFIED Status: Chronic (11) Elevated troponin Code(s): R77.8 - OTHER SPECIFIED ABNORMALITIES OF PLASMA PROTEINS Status: Acute - Plan old records reviewed/req, continue antibiotics S/p pericardial window, Continue follow-up on culture result Meanwhile we will continue empiric antibiotic therapy Cardiology and cardiovascular surgeon following Medication reviewed and continued per symptomatic and supportive care We will discontinue IV fluid
--- NOTE | 2020-02-14 13:38 | PRG ---
DATE OF SERVICE: 02/14/2020 SUBJECTIVE: Mr. Riggs states he is breathing much better. He feels much better after the fluid was drained. He said actually when he woke up, he said he could breathe again and take a full the breath. He has some discomfort from the pericardial tubes. OBJECTIVE: VITAL SIGNS: Blood pressure 119/75, pulse 80 and it is regular. LUNGS: Clear. CARDIAC: Normal S1, normal S2. ABDOMEN: Soft, nontender. EXTREMITIES: No edema. There is some ecchymosis at the cath site. DIAGNOSTIC STUDIES: The patient did have ultrasound of the groin, last admission, due to the ecchymosis and there was no pseudoaneurysm. ASSESSMENT: 1. Recent bypass surgery. 2. Pericardial effusion, but I think it probably was an early tamponade. 3. Status post successful pericardial drainage with improved symptoms following that. 4. Atrial arrhythmias initially postoperatively, none now. 5. History of hypertension. PLAN: 1. He is on amiodarone, I will cut the dose to 250 mg once a day. 2. Antibiotics. 3. Aspirin. 4. Stop Plavix, no clear indication to continue that at this point. 5. Low-dose Lovenox. 6. He is on metoprolol. Job ID: [id number]
[2020-02-14] MEDS: HYDROcodone/Acetaminophen 5/325 mg Tablet PO PRN ×2 (16:16→23:21)
--- NOTE | 2020-02-14 16:31 | OP ---
DATE OF PROCEDURE: 02/13/2020 PREOPERATIVE DIAGNOSIS: Loculated pericardial effusion, suspicious for tamponade effect. POSTOPERATIVE DIAGNOSIS: Loculated pericardial effusion, suspicious for tamponade effect. PROCEDURE PERFORMED: Pericardial window. ANESTHESIA: General. ESTIMATED BLOOD LOSS: Minimal. FINDINGS: About 550 mL of serosanguineous fluid with no signs of infection. DESCRIPTION OF PROCEDURE: After adequate anesthesia had been obtained, the patient was prepped and draped. After this had been done, lower 1.5 inch of incision was reopened by removing the sutures. Following this, a finger was inserted under the edge of the xiphoid, entering the pericardial cavity, and after this had been done, about 550 mL of fluid was evacuated. A 19 Abdoul drain was placed through a separate stab wound. Cultures were obtained. The wound was then closed with interrupted [id number] Vicryl in two layers and then the skin reclosed. The patient is to be taken to the recovery room. Job ID: [id number]
[2020-02-14] MEDS: Vancomycin HCl 1.25 GM in Sodium Chloride 0.9% 250 ML 250 ML IVPB SCH (18:28)
[2020-02-14] MEDS: Atorvastatin Calcium 40 MG TAB PO SCH (20:53)
[2020-02-14] MEDS: Enoxaparin Sodium 40 MG/0.4 ML SYRINGE SC SCH (20:53)
[2020-02-14] MEDS: Acetaminophen 325 MG TAB PO PRN (20:57)
[2020-02-14] MEDS: Zolpidem Tartrate 5 MG TAB PO PRN (23:21)
[2020-02-15] MEDS: Piperacillin/Tazobactam 4.5 GM in Sodium Chloride 0.9% 100 ML IVPB SCH ×4 (04:56→22:27)
[2020-02-15] MEDS: Acetaminophen 325 MG TAB PO PRN ×4 (04:56→20:08)
[2020-02-15] MEDS: Vancomycin HCl 1.25 GM in Sodium Chloride 0.9% 250 ML 250 ML IVPB SCH ×2 (05:47→19:08)
[2020-02-15] MEDS: Polyethylene Glycol 3350 17 GM Packet PO SCH (07:38)
[2020-02-15] MEDS: Amiodarone 200 MG TAB PO SCH (07:38)
[2020-02-15] MEDS: Famotidine 20 MG TAB PO SCH ×2 (07:38→20:08)
[2020-02-15] MEDS: Aspirin 81 mg Enteric Coated Tablet PO SCH (07:38)
[2020-02-15] MEDS ORDERED: Amiodarone 200 MG TAB PO SCH (09:00)
--- NOTE | 2020-02-15 09:52 | PDOC.HOSPP ---
- Subjective Encounter Date: 02/15/20 Encounter Time: 08:30 Subjective: Patient seen and examined bedside today, no fever, patient is overall doing better, his is present bedside, - Objective Vital Signs & Weight: Vital Signs (12 hours) Temp Pulse Resp BP Pulse Ox 02/15/20 08:04 95 02/15/20 07:35 99.2 F 90 16 135/86 95 02/15/20 04:00 98.7 F 83 20 150/87 H 96 02/15/20 03:00 96 Weight Weight 252 lb 3.2 oz Most Recent Monitor Data Heart Rate from ECG 92 NIBP 134/94 NIBP BP-Mean 107 Respiration from ECG 18 SpO2 95 I&O: 02/14/20 02/15/20 02/16/20 06:59 06:59 06:59 Intake Total 720 1905 Output Total 1760 310 Balance -1040 1595 Result Diagrams: 02/13/20 08:57 02/13/20 04:00 EKG Reviewed by me: Yes Hospitalist ROS - Review of Systems ENT: denies: ear pain, ear discharge, nose pain, nose discharge, nose congestion, mouth pain, mouth swelling, throat pain, throat swelling, other Respiratory: denies: cough, dry, shortness of breath, hemoptysis, SOB with excertion, pleuritic pain, sputum, wheezing, other Cardiovascular: denies: chest pain, palpitations, orthopnea, paroxysmal noc. dyspnea, edema, light headedness, other Gastrointestinal: denies: nausea, vomiting, abdominal pain, diarrhea, constipation, melena, hematochezia, other Genitourinary: denies: dysuria, frequency, incontinence, hematuria, retention, other Musculoskeletal: denies: neck pain, shoulder pain, arm pain, back pain, hand pain, leg pain, foot pain, other - Medication Medications: Active Medications Generic Name Dose Route Start Last Admin Trade Name Freq PRN Reason Stop Dose Admin Acetaminophen 650 mg 02/12/20 15:20 02/15/20 04:56 Acetaminophen 325 Mg Tab PO 650 mg Q4H PRN Administration Headache/Fever/Mild Pain (1-3) Hydrocodone Bitart/Acetaminophen 1 tab 02/13/20 13:29 02/14/20 23:21 Hydrocodone/Acetaminophen 5/325 Mg Tablet PO 1 tab Q4H PRN Administration Pain Amiodarone HCl 200 mg 02/15/20 09:00 02/15/20 07:38 Amiodarone 200 Mg Tab PO 200 mg DAILY LINWOOD Administration Aspirin 81 mg 02/13/20 09:00 02/15/20 07:38 Aspirin 81 Mg Enteric Coated Tablet PO 81 mg DAILY LINWOOD Administration Atorvastatin Calcium 40 mg 02/12/20 21:00 02/14/20 20:53 Atorvastatin Calcium 40 Mg Tab PO 40 mg HS LINWOOD Administration Enoxaparin Sodium 40 mg 02/13/20 21:00 02/14/20 20:53 Enoxaparin Sodium 40 Mg/0.4 Ml Syringe SC 40 mg 2100 LINWOOD Administration Famotidine 20 mg 02/12/20 21:00 02/15/20 07:38 Famotidine 20 Mg Tab PO 20 mg BID LINWOOD Administration Fentanyl 25 mcg 02/13/20 13:29 02/13/20 15:04 Fentanyl 100 Mcg/2 Ml Vial SLOW IVP 02/15/20 13:30 25 mcg ONE PRN Administration Pain Piperacillin Sod/Tazobactam 100 mls @ 200 mls/hr 02/13/20 05:00 02/15/20 04:56 Sod 4.5 gm/ Sodium Chloride IVPB 100 mls 0500,1100,1700,2300 LINWOOD Administration Vancomycin HCl 1.25 gm/ Sodium 250 mls @ 166.667 mls/hr 02/14/20 18:00 02/15/20 05:47 Chloride IVPB 250 mls 0600,1800 LINWODO Administration Metoprolol Succinate 100 mg 02/13/20 09:00 02/15/20 07:38 Metoprolol Succinate Xl 100 Mg Tab PO 100 mg DAILY LINWOOD Administration Polyethylene Glycol 17 gm 02/14/20 09:00 02/15/20 07:38 Polyethylene Glycol 3350 17 Gm Packet PO Not Given DAILY [facility] Zolpidem Tartrate 5 mg 02/13/20 16:02 02/14/20 23:21 Zolpidem Tartrate 5 Mg Tab PO 5 mg HSPRN PRN Administration Insomnia - Exam General Appearance: NAD, awake alert Eye: PERRL, anicteric sclera ENT: normocephalic atraumatic, no oropharyngeal lesions Neck: supple, symmetric, no JVD, no thyromegaly Heart: RRR, no murmur, no gallops, no rubs Respiratory: no wheezes, no rales, no ronchi Respiratory - other findings: Surgical site with a dressing, drain in place Gastrointestinal: soft, non-tender, non-distended, normal bowel sounds Extremities: no cyanosis, no clubbing, no edema Skin: normal turgor, no lesions Neurological: no focal deficits Musculoskeletal: normal tone, normal strength Psychiatric: normal affect, normal behavior Hosp A/P (1) Pericardial effusion Code(s): I31.3 - PERICARDIAL EFFUSION (NONINFLAMMATORY) Status: Acute (2) Pleural effusion Code(s): J90 - PLEURAL EFFUSION, NOT ELSEWHERE CLASSIFIED Status: Acute (3) Syncope Code(s): R55 - SYNCOPE AND COLLAPSE Status: Acute Qualifiers: Syncope type: vasovagal syncope Qualified Code(s): R55 - Syncope and collapse (4) Paroxysmal atrial fibrillation Code(s): I48.0 - PAROXYSMAL ATRIAL FIBRILLATION Status: Chronic (5) Anxiety Code(s): F41.9 - ANXIETY DISORDER, UNSPECIFIED Status: Chronic (6) CAD (coronary artery disease) Code(s): I25.10 - ATHSCL HEART DISEASE OF [place] CORONARY ARTERY W/O ANG PCTRS Status: Chronic Qualifiers: Coronary Disease-Associated Artery/Lesion type: [place] artery [place] vs. transplanted heart: [place] heart Associated angina: angina presence unspecified Qualified Code(s): I25.10 - Atherosclerotic heart disease of [place] coronary artery without angina pectoris (7) Hypertension Code(s): I10 - ESSENTIAL (PRIMARY) HYPERTENSION Status: Chronic Qualifiers: Hypertension type: essential hypertension Qualified Code(s): I10 - Essential (primary) hypertension (8) Obesity, Class III, BMI 40-49.9 (morbid obesity) Code(s): E66.01 - MORBID (SEVERE) OBESITY DUE TO EXCESS CALORIES Status: Chronic (9) Acute kidney injury Code(s): N17.9 - ACUTE KIDNEY FAILURE, UNSPECIFIED Status: Resolved (10) Normocytic normochromic anemia Code(s): D64.9 - ANEMIA, UNSPECIFIED Status: Chronic (11) Elevated troponin Code(s): R77.8 - OTHER SPECIFIED ABNORMALITIES OF PLASMA PROTEINS Status: Acute - Plan old records reviewed/req, plan discussed w/ family Patient had loculated pericardial effusion which required a pericardial window, pericardial fluid is negative for any infection so far, drain will be removed, continue ambulation, expecting discharge in next 24 hours, if final culture is negative then will discontinue all antibiotic therapy upon discharge, medication reviewed and continue provide symptomatic and supportive care, tomorrow we will repeat CBC and BMP
[2020-02-15] MEDS: Atorvastatin Calcium 40 MG TAB PO SCH (20:08)
[2020-02-15] MEDS: Enoxaparin Sodium 40 MG/0.4 ML SYRINGE SC SCH (20:08)
[2020-02-15] MEDS: Zolpidem Tartrate 5 MG TAB PO PRN (22:28)
[2020-02-16 04:33] LABS: #Basophils 0.1 thou/uL (0.0-0.2); #Eosinphils 0.2 thou/uL (0.0-0.7); #Lymphocytes 2.8 thou/uL (1.20-3.40); #Monocytes 0.9 thou/uL (0.11-0.59); #Neutrophils 11.2 thou/uL (1.40-6.50); %Basophils 0.3 % (0.0-1.0); %Eosinophils 1.6 % (0.0-10.0); %Lymphocytes 18.4 % (21.0-51.0); %Monocytes 5.9 % (0.0-10.0); %Neutrophils 73.8 % (42.0-75.0); Mean Corpuscular HGB CONC 33.5 g/dL (32.0-36.0); Mean Corpuscular Hemoglobin 32.2 pg (27.0-31.0); Mean Corpuscular Volume 96.3 fL (78.0-98.0); Mean Platelet Volume 6.8 fL (7.4-10.4); Platelet Count 603 thou/uL (130-400); RBC Distribution Width 13.5 % (11.5-14.5); Red Blood Cell (RBC) Count 3.11 mill/uL (4.70-6.10); White Blood Cell (WBC) Count 15.2 thou/uL (4.8-10.8)
[2020-02-16 04:58] LABS: Anion Gap 15 mmol/L (10-20); BUN (Urea Nitrogen) 7 mg/dL (8.9-20.6); Calc. Creatinine Clearance 148 mL/min (70-130); Calcium 8.6 mg/dL (7.8-10.44); Carbon Dioxide 23 mmol/L (22-29); Chloride 107 mmol/L (98-107); Glucose 95 mg/dL (70-105); Potassium 3.5 mmol/L (3.5-5.1); Sodium 141 mmol/L (136-145)
[2020-02-16 05:05] LABS: Vancomycin, Trough 12.8 ug/mL
[2020-02-16] MEDS: Piperacillin/Tazobactam 4.5 GM in Sodium Chloride 0.9% 100 ML IVPB SCH ×2 (05:51→11:25)
[2020-02-16] MEDS: Vancomycin HCl 1.25 GM in Sodium Chloride 0.9% 250 ML 250 ML IVPB SCH (06:45)
[2020-02-16] MEDS: Amiodarone 200 MG TAB PO SCH (09:18)
[2020-02-16] MEDS: Aspirin 81 mg Enteric Coated Tablet PO SCH (09:18)
[2020-02-16] MEDS: Famotidine 20 MG TAB PO SCH (09:18)
[2020-02-16] MEDS: Polyethylene Glycol 3350 17 GM Packet PO SCH (09:20)
[2020-02-16 11:27] VITALS: BP 133/79; TEMP 98.1
--- NOTE | 2020-02-16 11:45 | PDOC.HOSPP ---
- Subjective Encounter Date: 02/16/20 Encounter Time: 07:30 Subjective: Patient seen and examined. No new complaints. No overnight events - Objective Vital Signs & Weight: Vital Signs (12 hours) Temp Pulse Resp BP Pulse Ox 02/16/20 11:26 98.1 F 95 19 133/79 94 L 02/16/20 07:51 95 02/16/20 07:42 98.2 F 99 19 145/86 H 95 02/16/20 04:59 95 02/16/20 04:00 99.6 F 96 20 152/85 H 94 L Weight Weight 252 lb 3.2 oz Most Recent Monitor Data Heart Rate from ECG 92 NIBP 134/94 NIBP BP-Mean 107 Respiration from ECG 18 SpO2 95 I&O: 02/15/20 02/16/20 02/17/20 06:59 06:59 06:59 Intake Total 1905 1875 Output Total 310 1550 Balance 1595 325 Result Diagrams: 02/16/20 03:47 02/16/20 03:47 EKG Reviewed by me: Yes Hospitalist ROS - Review of Systems ENT: denies: ear pain, ear discharge, nose pain, nose discharge, nose congestion, mouth pain, mouth swelling, throat pain, throat swelling, other Respiratory: denies: cough, dry, shortness of breath, hemoptysis, SOB with excertion, pleuritic pain, sputum, wheezing, other Cardiovascular: denies: chest pain, palpitations, orthopnea, paroxysmal noc. dyspnea, edema, light headedness, other Gastrointestinal: denies: nausea, vomiting, abdominal pain, diarrhea, constipation, melena, hematochezia, other Genitourinary: denies: dysuria, frequency, incontinence, hematuria, retention, other Musculoskeletal: denies: neck pain, shoulder pain, arm pain, back pain, hand pain, leg pain, foot pain, other - Medication Medications: Active Medications Generic Name Dose Route Start Last Admin Trade Name Freq PRN Reason Stop Dose Admin Acetaminophen 650 mg 02/12/20 15:20 02/15/20 20:08 Acetaminophen 325 Mg Tab PO 650 mg Q4H PRN Administration Headache/Fever/Mild Pain (1-3) Hydrocodone Bitart/Acetaminophen 1 tab 02/13/20 13:29 02/14/20 23:21 Hydrocodone/Acetaminophen 5/325 Mg Tablet PO 1 tab Q4H PRN Administration Pain Amiodarone HCl 200 mg 02/15/20 09:00 02/16/20 09:18 Amiodarone 200 Mg Tab PO 200 mg DAILY LIN[place]OD Administration Aspirin 81 mg 02/13/20 09:00 02/16/20 09:18 Aspirin 81 Mg Enteric Coated Tablet PO 81 mg DAILY LIN[place]OD Administration Atorvastatin Calcium 40 mg 02/12/20 21:00 02/15/20 20:08 Atorvastatin Calcium 40 Mg Tab PO 40 mg HS LINWOOD Administration Enoxaparin Sodium 40 mg 02/13/20 21:00 02/15/20 20:08 Enoxaparin Sodium 40 Mg/0.4 Ml Syringe SC 40 mg 2100 LINWOOD Administration Famotidine 20 mg 02/12/20 21:00 02/16/20 09:18 Famotidine 20 Mg Tab PO 20 mg BID LINWOOD Administration Piperacillin Sod/Tazobactam 100 mls @ 200 mls/hr 02/13/20 05:00 02/16/20 11:25 Sod 4.5 gm/ Sodium Chloride IVPB 100 mls 0500,1100,1700,2300 LINWOOD Administration Vancomycin HCl 1.25 gm/ Sodium 250 mls @ 166.667 mls/hr 02/14/20 18:00 02/16/20 06:45 Chloride IVPB 250 mls 0600,1800 LINWOOD Administration Metoprolol Succinate 100 mg 02/13/20 09:00 02/16/20 09:18 Metoprolol Succinate Xl 100 Mg Tab PO 100 mg DAILY LINWOOD Administration Polyethylene Glycol 17 gm 02/14/20 09:00 02/16/20 09:20 Polyethylene Glycol 3350 17 Gm Packet PO Not Given DAILY [facility] Zolpidem Tartrate 5 mg 02/13/20 16:02 02/15/20 22:28 Zolpidem Tartrate 5 Mg Tab PO 5 mg HSPRN PRN Administration Insomnia - Exam General Appearance: NAD, awake alert Eye: PERRL, anicteric sclera ENT: normocephalic atraumatic, no oropharyngeal lesions Neck: supple, symmetric, no JVD, no thyromegaly Heart: RRR, no murmur, no gallops, no rubs Heart - other findings: Surgical site with a dressing and drain in place Respiratory: no wheezes, no rales, no ronchi Gastrointestinal: soft, non-tender, non-distended, normal bowel sounds Extremities: no cyanosis, no clubbing, no edema Skin: normal turgor, no lesions Neurological: no focal deficits Musculoskeletal: normal tone, normal strength Psychiatric: normal affect, normal behavior Hosp A/P (1) Pericardial effusion Code(s): I31.3 - PERICARDIAL EFFUSION (NONINFLAMMATORY) Status: Acute (2) Pleural effusion Code(s): J90 - PLEURAL EFFUSION, NOT ELSEWHERE CLASSIFIED Status: Acute (3) Syncope Code(s): R55 - SYNCOPE AND COLLAPSE Status: Acute Qualifiers: Syncope type: vasovagal syncope Qualified Code(s): R55 - Syncope and collapse (4) Paroxysmal atrial fibrillation Code(s): I48.0 - PAROXYSMAL ATRIAL FIBRILLATION Status: Chronic (5) Anxiety Code(s): F41.9 - ANXIETY DISORDER, UNSPECIFIED Status: Chronic (6) CAD (coronary artery disease) Code(s): I25.10 - ATHSCL HEART DISEASE OF [place] CORONARY ARTERY W/O ANG PCTRS Status: Chronic Qualifiers: Coronary Disease-Associated Artery/Lesion type: [place] artery [place] vs. transplanted heart: [place] heart Associated angina: angina presence unspeci fied Qualified Code(s): I25.10 - Atherosclerotic heart disease of [place] coronary artery without angina pectoris (7) Hypertension Code(s): I10 - ESSENTIAL (PRIMARY) HYPERTENSION Status: Chronic Qualifiers: Hypertension type: essential hypertension Qualified Code(s): I10 - Essential (primary) hypertension (8) Obesity, Class III, BMI 40-49.9 (morbid obesity) Code(s): E66.01 - MORBID (SEVERE) OBESITY DUE TO EXCESS CALORIES Status: Chronic (9) Acute kidney injury Code(s): N17.9 - ACUTE KIDNEY FAILURE, UNSPECIFIED Status: Resolved (10) Normocytic normochromic anemia Code(s): D64.9 - ANEMIA, UNSPECIFIED Status: Chronic (11) Elevated troponin Code(s): R77.8 - OTHER SPECIFIED ABNORMALITIES OF PLASMA PROTEINS Status: Acute - Plan old records reviewed/req, plan discussed w/ family, continue antibiotics S/p pericardial window, drain in place, drain will be reported probably today Culture negative so far Continue empiric antibiotic therapy Patient is ambulatory Expecting discharge soon
--- NOTE | 2020-02-16 12:44 | PDOC.DS.DS ---
Provider - Provider Date of Admission: 02/12/20 14:54 Date of Discharge: 02/16/20 Admitting Provider: Nasim Bragg MD Consultations: Cardiology Primary Care Physician: [facility] Course - Hospital Course Hospital Course: Patient was admitted on February 12, 2020, on admission patient had syncopal episode, which was attributed to be due to vasovagal, patient had echocardiography which showed pericardial effusion, patient also had CT angiography to rule out PE which showed loculated pleural and pericardial effusion, there was concern of underlying infection, patient was started on broad-spectrum antibiotic therapy, cardiovascular surgeon did pericardial window, subsequently drain was removed, his culture remain negative, while in hospital he was given vancomycin and Zosyn, patient was discharged by cardiovascular surgeon, patient will continue all his previous medication. At this point patient may not need antibiotic therapy upon discharge given no infection. Resuscitation Status: 02/12/20 15:20 Resuscitation Status Routine Resuscitation Status: FULL: Full Resuscitation - Labs Lab Results: 02/16/20 03:47 02/16/20 03:47 Abnormal Lab Results - Last 48 hrs 02/12/20 12:53: Crossmatch See Detail 02/16/20 03:47: BUN 7 L 02/16/20 03:47: WBC 15.2 H, RBC 3.11 L, Hgb 10.0 L, Hct 30.0 L, MCH 32.2 H, Plt Count 603 H, MPV 6.8 L, Lymphocytes % 18.4 L, Neutrophils # 11.2 H, Monocytes # 0.9 H Microbiology - Entire Visit 02/13/20 11:38 Pericardium - Swab Bacterial Culture - Preliminary 02/13/20 11:38 Pericardium - Swab Anaerobic Culture - Preliminary NO ANAEROBES ISOLATED IN 3 DAYS 02/12/20 12:56 Venous blood - Left Arm Blood Culture - Preliminary NO GROWTH AT 48 HOURS 02/12/20 13:16 Venous blood - Left Hand Blood Culture - Preliminary NO GROWTH AT 48 HOURS - Physical Exam Vitals: Vital Signs (12 hours) Temp Pulse Resp BP Pulse Ox 02/16/20 11:26 98.1 F 95 19 133/79 94 L 02/16/20 07:51 95 02/16/20 07:42 98.2 F 99 19 145/86 H 95 02/16/20 04:59 95 02/16/20 04:00 99.6 F 96 20 152/85 H 94 L Weight Weight 252 lb 3.2 oz Most Recent Monitor Data Heart Rate from ECG 92 NIBP 134/94 NIBP BP-Mean 107 Respiration from ECG 18 SpO2 95 Physical Exam: The patient was seen and examined on the day of discharge. Problem - Problem (1) Pericardial effusion Code(s): I31.3 - PERICARDIAL EFFUSION (NONINFLAMMATORY) Status: Acute (2) Pleural effusion Code(s): J90 - PLEURAL EFFUSION, NOT ELSEWHERE CLASSIFIED Status: Acute (3) Syncope Code(s): R55 - SYNCOPE AND COLLAPSE Status: Acute Qualifiers: Syncope type: vasovagal syncope Qualified Code(s): R55 - Syncope and collapse (4) Paroxysmal atrial fibrillation Code(s): I48.0 - PAROXYSMAL ATRIAL FIBRILLATION Status: Chronic (5) Anxiety Code(s): F41.9 - ANXIETY DISORDER, UNSPECIFIED Status: Chronic (6) CAD (coronary artery disease) Code(s): I25.10 - ATHSCL HEART DISEASE OF [place] CORONARY ARTERY W/O ANG PCTRS Status: Chronic Qualifiers: Coronary Disease-Associated Artery/Lesion type: [place] artery [place] vs. transplanted heart: [place] heart Associated angina: angina presence unspe cified Qualified Code(s): I25.10 - Atherosclerotic heart disease of [place] coronary artery without angina pectoris (7) Hypertension Code(s): I10 - ESSENTIAL (PRIMARY) HYPERTENSION Status: Chronic Qualifiers: Hypertension type: essential hypertension Qualified Code(s): I10 - Essential (primary) hypertension (8) Obesity, Class III, BMI 40-49.9 (morbid obesity) Code(s): E66.01 - MORBID (SEVERE) OBESITY DUE TO EXCESS CALORIES Status: Chronic (9) Acute kidney injury Code(s): N17.9 - ACUTE KIDNEY FAILURE, UNSPECIFIED Status: Resolved (10) Normocytic normochromic anemia Code(s): D64.9 - ANEMIA, UNSPECIFIED Status: Chronic (11) Elevated troponin Code(s): R77.8 - OTHER SPECIFIED ABNORMALITIES OF PLASMA PROTEINS Status: Acute Plan - Discharge Medications Prescriptions: Atorvastatin Calcium [Lipitor] 40 mg PO HS #30 tab Metoprolol Succinate [Toprol XL] 100 mg PO DAILY #30 tab Home Medications: Medication Instructions Recorded Confirmed Type Lisinopril [Zestril] 10 mg PO DAILY 09/18/19 02/13/20 History Aspirin [Ecotrin Low Strength] 81 mg PO DAILY #30 tab 09/20/19 02/13/20 Rx Metoprolol Succinate [Toprol XL] 100 mg PO DAILY #30 tab 09/20/19 02/13/20 Rx Amiodarone [Cordarone] 200 mg PO DAILY tab 02/16/20 Rx Atorvastatin Calcium [Lipitor] 40 mg PO HS #30 tab 02/16/20 Rx Metoprolol Succinate [Toprol XL] 100 mg PO DAILY #30 tab 02/16/20 Rx Allergies: No Known Drug Allergies Allergy (Verified 02/13/20 02:47) - Discharge Instructions Activity:: Activity as Tolerated Nourishment:: Heart Healthy Diet Therapies:: Not Applicable Equipment/Supplies:: Not Applicable IV Therapy:: Not Applicable - Follow up Plan Referrals: Card[facility] Re[facility] - [facility] [Outside] - 02/19/20 1:15 pm [facility] [Primary Care Provider] - 02/19/20 11:15 am (10:00AM phone call same day for Eligibility from [place]) Vincent Espinoza MD [Active] - 02/24/20 3:00 pm Dimitris Simental MD [Active] - 3-4 Weeks (Please call to schedule a follow up appointment in 3-4 weeks.) Disposition: HOME Quality - Care Measures CORE MEASURES:: N/A
--- NOTE | 2020-02-19 03:22 | PQF ---
CLINICAL DOCUMENTATION CLARIFICATION FORM: Dear : Kylah Estevez Date / Time: 02/19/20 0244 Please exercise your independent, professional judgment in responding to the clarification form. Clinical indicators are provided on the bottom of this form for your review In your clinical opinion based on clinical findings below, can you please identify the etiology of Pericardial effusion if due to: Please check appropriate box(es): [x ] Postcardiotomy syndrome [ ] Postoperative thrombus in the Myocardial as complication [ ] Cardiac Tamponade related to postoperative complication of CABG [ ] Other diagnosis, please specify [ ] Unable to determine Physician Signature: Date/Time: For continuity of documentation, please document condition throughout progress notes and discharge summary. Thank You. To be completed by CDI/Coding staff for physician review: Present Clinical Indicators - Signs / Symptoms / Labs Results and Location in Medical Record [X] WBC 19.6, Plt count 588, Neutrophils 74.2 Laboratory 02/11 [X] BP 81/63, Pulse 77, Resp 16, Temp 98.6 Vital signs 02/11 [X] Hypotension, Cardiogenic Shock ED notes p 15 02/11 [X] CT scan of chest showed evidecen of pericardial effusion with suspicion for mediastinitis H&P p1 02/11 DR Bragg [X] Hold metoprolol as well as lisinopril, secondary to low blood presssure H&P p3 02/11 DR Bragg [X] Does not appear to have any tamponade physciology however could be his blood pressure is low due to increased thombus postoperatively in the myocardial space and in mediactinum Consult Dr Babin 02/11 [X] Loculated pericardial effusion, suspecious for tamponade effect Operative report Dr Espinoza 02/12 Present Risk Factors Results and Location in Medical Record [X] CAD s/p CABG H&P p1 02/11 DR Bragg [X] [place] in 2019 H&P p1 02/11 DR Bragg [X] HTN H&P p1 02/11 DR Bragg [X] Obesity H&P p3 02/11 DR Bragg [X] DM Consult 02/12 [X] Hypercholesterolemia Consult 02/12 [X] PAF PN 02/12 Present Treatments Results and Location in Medical Record [X] Amiodarone 400 mg oral MAR 02/12 [X] Aspirin Chewable 81 mg oral MAY 22 [X] IV Cefepime HCL 2 gm MAY 22 [X] Plavix 75 mg oral MAY 22 [X] IV Zosyn 4.5 gm MAY 22 [X] IV Vancomycin 2 gm MAY 22 [X] Pericardial window Operative report Dr Espinoza 02/12 [X] Cardio consult Consult Dr Babin 02/11 CDS/Livestock Judging Coach Signature: Whit Bonilla Phone #: ext [phone] Date/Time: 02/19/2020 0321 This is a permanent part of the Medical Record [facility]
--- NOTE | 2020-02-19 03:24 | PQF ---
CLINICAL DOCUMENTATION CLARIFICATION FORM: Dear : Kylah Estevez Date / Time: 02/19/20 8269 Please exercise your independent, professional judgment in responding to the clarification form. Clinical indicators are provided on the bottom of this form for your review Please check appropriate box(es) to clarify if the following diagnosis has been ruled in our ruled out: Cardiogenic Shock [ ] Ruled in diagnosis [ ] Continue to treat [ ] Resolved [ x ] Ruled out diagnosis [ ] Improving [ ] Cannot rule out diagnosis [ ] Other diagnosis,please specify [ ] Unable to determine Physician Signature: Date/Time: For continuity of documentation, please document condition throughout progress notes and discharge summary. Thank You. To be completed by CDI/Coding staff for physician review: Present Clinical Indicators - Signs / Symptoms / Labs Results and Location in Medical Record [X] WBC 19.6, Plt count 588, Neutrophils 74.2 Laboratory 02/11 [X] BP 81/63, Pulse 77, Resp 16, Temp 98.6 Vital signs 02/11 [X] Hypotension, Cardiogenic Shock ED notes p 15 02/11 [X] CT scan of chest showed evidecen of pericardial effusion with suspicion for mediastinitis H&P p1 02/11 DR Bragg [X] Hold metoprolol as well as lisinopril, secondary to low blood presssure H&P p3 02/11 DR Bragg [X] reports fatigue, weakness and malaise ED Notes 02/11 [X] Reports diaphoresis ED Notes 02/11 Present Risk Factors Results and Location in Medical Record [X] CAD s/p CABG H&P p1 02/11 DR Bragg [X] [place] in 2019 H&P p1 02/11 DR Bragg [X] HTN H&P p1 02/11 DR Bragg [X] Obesity H&P p3 02/11 DR Bragg [X] DM Consult 02/12 [X] Hypercholesterolemia Consult 02/12 [X] PAF PN 02/12 Present Treatments Results and Location in Medical Record [X] Amiodarone 400 mg oral MAY 22 [X] Aspirin Chewable 81 mg oral MAY 22 [X] IV Cefepime HCL 2 gm MAY 22 [X] Plavix 75 mg oral MAY 22 [X] IV Zosyn 4.5 gm MAY 22 [X] IV Vancomycin 2 gm MAY 22 [X] Pericardial window Operative report Dr Espinoza 02/12 [X] Cardio consult Consult Dr Babin 02/11 [X] Oxygen via [place] [facility] 02/11 CDS/Executive Director Of Marketing Signature: Whit Bonilla Phone #: ext [phone] Date/Time: 02/19/2020 0323 This is a permanent part of the Medical Record [facility]
== END 2020-02-16 12:50 | disposition home or self-care (01) | DRG 315 ==
LOC: ERS 12:17 → ERHOLD 14:54 → IMCU/EMU 21:53 → 2NO 02-13 12:50
PROVIDERS: ADMIT Student in an Organized Health Care Education/Training Program; ATTEND Internal Medicine
PROC: 0W9D30Z Drainage of Pericardial Cavity with Drainage Device, Percutaneous Approach (ICD-10-PCS; principal; 2020-02-13)
DX: I97.0 Postcardiotomy syndrome (principal); Z68.41 Body mass index [BMI] 40.0-44.9, adult; N17.9 Acute kidney failure, unspecified; J90 Pleural effusion, not elsewhere classified; Z20.828 Contact with and (suspected) exposure to other viral communicable diseases; F41.9 Anxiety disorder, unspecified; I25.10 Atherosclerotic heart disease of native coronary artery without angina pectoris; E11.65 Type 2 diabetes mellitus with hyperglycemia; E78.00 Pure hypercholesterolemia, unspecified; I48.0 Paroxysmal atrial fibrillation; E66.01 Morbid (severe) obesity due to excess calories; D64.9 Anemia, unspecified; R77.8 Other specified abnormalities of plasma proteins; I10 Essential (primary) hypertension; E78.5 Hyperlipidemia, unspecified; Y83.9 Surgical procedure, unspecified as the cause of abnormal reaction of the patient, or of later complication, without mention of misadventure at the time of the procedure; I25.2 Old myocardial infarction; Z95.1 Presence of aortocoronary bypass graft; Z87.442 Personal history of urinary calculi; Z79.899 Other long term (current) drug therapy; Z79.82 Long term (current) use of aspirin; Z79.02 Long term (current) use of antithrombotics/antiplatelets; Z82.49 Family history of ischemic heart disease and other diseases of the circulatory system
CPT/HCPCS: 36415; 71045; 71275; 80048; 80053; 80202; 82553; 83605; 83880; 84484; 85025; 85379; 85610; 85652; 85730; 86850; 86900; 86901; 87040; 87070; 87205; 93005; 93306; 96365; 96366; 96367; 96375; J0692; J1650; J1885; J2250; J2405; J2543; J3010; J3370; J3490; J7030; J7050; Q9967; U0002

== ENCOUNTER 2020-02-24 12:16 | Outpatient (CLI) | payer OTHER ==
--- NOTE | 2020-02-24 12:42 | RAD ---
EXAM: CHEST TWO VIEWS 02/24/2020 12:37 PM HISTORY: History of cardiac top benign COMPARISON: CTA of the chest dated February 12, 2020 and a chest radiograph dated February 12, 2020 FINDINGS: Lungs: There is improved aeration of the left lower lobe. Mild residual opacity remains. Small left pleural effusion remains. Heart: The prominent cardiomegaly has diminished in size from the prior exam. Midline sternotomy magali nges are stable. Pulmonary Vessels: Normal. Costophrenic Angles: There is a persistent small left pleural effusion Pneumothorax: None. Osseous Structures: Intact. Additional Findings: None. IMPRESSION: 1. Interval decrease in size of the cardiomegaly seen within the prior exam. Moderate cardiomegaly re alfredo. Findings may reflect decreasing size of the patient's previously documented pericardial effusion. Follow-up echocardiography may be helpful to document size of the patient's effusion. 2. Improving left-sided pleural effusion. Small left pleural effusion remains. There is improved aera tion of the left lower lobe with mild residual subsegmental volume loss in the left lower lobe.
== END 2020-02-24 12:17 | disposition home or self-care (01) ==
LOC: RAD 12:16
PROVIDERS: ATTEND Thoracic Surgery (Cardiothoracic Vascular Surgery)
DX: I31.4 Cardiac tamponade (principal); J90 Pleural effusion, not elsewhere classified
CPT/HCPCS: 71046

== ENCOUNTER 2020-04-10 09:11 | Emergency (ER) | payer SELFPAY ==
[2020-04-10] MEDS ORDERED: Nitroglycerin 2% Ointment 1 INCH/1 GM Packet ONE (09:48)
[2020-04-10] MEDS ORDERED: Aspirin Chewable 81 MG TAB ONE (09:48)
--- NOTE | 2020-04-10 09:54 | RAD ---
EXAM: Portable chest PROVIDED CLINICAL HISTORY: Shortness of breath COMPARISON: 02/12/2020 FINDINGS: Cardiac and mediastinal silhouette is within normal limits. No focal consolidation, pleural fluid or pneumothorax evident. Median sternotomy changes are redemonstrated. IMPRESSION: No evidence for an acute cardiopulmonary process.
[2020-04-10 10:10] LABS: #Basophils 0.1 thou/uL (0.0-0.2); #Eosinphils 0.2 thou/uL (0.0-0.7); #Lymphocytes 3.3 thou/uL (1.20-3.40); #Monocytes 0.6 thou/uL (0.11-0.59); #Neutrophils 8.3 thou/uL (1.40-6.50); %Basophils 0.8 % (0.0-1.0); %Eosinophils 1.3 % (0.0-10.0); %Lymphocytes 26.5 % (21.0-51.0); %Monocytes 4.6 % (0.0-10.0); %Neutrophils 66.8 % (42.0-75.0); Hemoglobin 16.4 g/dL (14.0-18.0); Mean Corpuscular HGB CONC 30.8 g/dL (32.0-36.0); Mean Corpuscular Hemoglobin 27.2 pg (27.0-31.0); Mean Corpuscular Volume 88.2 fL (78.0-98.0); Mean Platelet Volume 7.1 fL (7.4-10.4); Platelet Count 375 thou/uL (130-400); RBC Distribution Width 15.2 % (11.5-14.5); Red Blood Cell (RBC) Count 6.05 mill/uL (4.70-6.10); White Blood Cell (WBC) Count 12.4 thou/uL (4.8-10.8)
[2020-04-10 10:38] LABS: ALT (SGPT) 27 U/L (8-55); AST (SGOT) 23 U/L (5-34); Albumin 4.5 g/dL (3.5-5.0); Alkaline Phosphatase 102 U/L (40-110); Anion Gap 16 mmol/L (10-20); BUN (Urea Nitrogen) 12 mg/dL (8.9-20.6); Bilirubin, Total 0.6 mg/dL (0.2-1.2); Calc. Creatinine Clearance 0 mL/min (70-130); Calcium 9.8 mg/dL (7.8-10.44); Carbon Dioxide 22 mmol/L (22-29); Chloride 103 mmol/L (98-107); Globulin 3.6 g/dL (2.4-3.5); Glucose 142 mg/dL (70-105); Lipase 42 U/L (8-78); Potassium 3.7 mmol/L (3.5-5.1); Protein, Total 8.1 g/dL (6.0-8.3); Sodium 137 mmol/L (136-145)
[2020-04-10] MEDS ORDERED: Meclizine HCl 25 MG TAB ONE (10:57)
[2020-04-10 14:53] LABS: Troponin I 0.021 ng/mL (< 0.028)
--- NOTE | 2020-04-22 12:33 | EKG ---
Test Reason : Blood Pressure : / mmHG Vent. Rate : 071 BPM Atrial Rate : 071 BPM P-R Int : 140 ms QRS Dur : 092 ms QT Int : 414 ms P-R-T Axes : 019 087 120 degrees QTc Int : 449 ms Normal sinus rhythm Septal infarct , age undetermined Inferior injury pattern Consider right ventricular involvement in acute inferior infarct Abnormal ECG Confirmed by ALMITA GREENWOOD M.D. ([id number]), supervising film or videotape editor LUKAS LUQUE ([id number]) on 04/22/2020 12:33:21 PM Referred By: Confirmed By:ALMITA GREENWOOD M.D.
--- NOTE | 2020-04-22 12:33 | EKG ---
Test Reason : SOB Blood Pressure : / mmHG Vent. Rate : 073 BPM Atrial Rate : 073 BPM P-R Int : 144 ms QRS Dur : 090 ms QT Int : 396 ms P-R-T Axes : 014 091 114 degrees QTc Int : 436 ms Normal sinus rhythm Rightward axis Septal infarct , age undetermined Abnormal ECG #2 Confirmed by KRYSTYNA Perez, ALMITA ([id number]), editor continuity and script LUKAS LUQUE ([id number]) on 04/22/2020 12:33:36 PM Referred By: Confirmed By:ALMITA GREENWOOD M.D.
== END 2020-04-10 16:05 | disposition home or self-care (01) ==
LOC: ERS 09:11
DX: R42 Dizziness and giddiness (principal); R06.02 Shortness of breath; I10 Essential (primary) hypertension; I25.2 Old myocardial infarction; Z79.82 Long term (current) use of aspirin; Z79.899 Other long term (current) drug therapy; Z95.1 Presence of aortocoronary bypass graft
CPT/HCPCS: 36415; 71045; 80053; 83690; 83880; 84484; 85025; 93005

== ENCOUNTER 2020-07-29 10:31 | Emergency (ER) | payer SELFPAY ==
[2020-07-29 12:19] LABS: ALT (SGPT) 27 U/L (8-55); AST (SGOT) 21 U/L (5-34); Albumin 4.4 g/dL (3.5-5.0); Alkaline Phosphatase 81 U/L (40-110); Anion Gap 13 mmol/L (10-20); BUN (Urea Nitrogen) 12 mg/dL (8.9-20.6); Bilirubin, Total 0.7 mg/dL (0.2-1.2); Calc. Creatinine Clearance 0 mL/min (70-130); Calcium 9.4 mg/dL (7.8-10.44); Carbon Dioxide 23 mmol/L (22-29); Chloride 107 mmol/L (98-107); Globulin 3.5 g/dL (2.4-3.5); Glucose 121 mg/dL (70-105); Potassium 3.3 mmol/L (3.5-5.1); Protein, Total 7.9 g/dL (6.0-8.3); Sodium 140 mmol/L (136-145)
[2020-07-29 12:21] LABS: #Basophils 0.1 thou/uL (0.0-0.2); #Eosinphils 0.2 thou/uL (0.0-0.7); #Lymphocytes 2.5 thou/uL (1.20-3.40); #Monocytes 0.8 thou/uL (0.11-0.59); #Neutrophils 9.3 thou/uL (1.40-6.50); %Basophils 0.8 % (0.0-1.0); %Eosinophils 1.2 % (0.0-10.0); %Lymphocytes 19.7 % (21.0-51.0); %Monocytes 6.5 % (0.0-10.0); %Neutrophils 71.9 % (42.0-75.0); Hemoglobin 15.9 g/dL (14.0-18.0); Mean Corpuscular HGB CONC 32.6 g/dL (32.0-36.0); Mean Corpuscular Volume 88.9 fL (78.0-98.0); Mean Platelet Volume 7.5 fL (7.4-10.4); Platelet Count 315 thou/uL (130-400); RBC Distribution Width 16.7 % (11.5-14.5); White Blood Cell (WBC) Count 12.9 thou/uL (4.8-10.8)
[2020-07-29] MEDS ORDERED: Lorazepam 1 MG TAB ONE (12:24)
== END 2020-07-29 12:52 | disposition home or self-care (01) ==
LOC: ERS 10:31
DX: F41.9 Anxiety disorder, unspecified (principal); R06.00 Dyspnea, unspecified; I10 Essential (primary) hypertension; I25.2 Old myocardial infarction; Z87.442 Personal history of urinary calculi; Z79.82 Long term (current) use of aspirin; Z79.899 Other long term (current) drug therapy
CPT/HCPCS: 36415; 71045; 80053; 84484; 85025; 93005

== ENCOUNTER 2020-09-02 14:58 | Emergency (ER) | payer SELFPAY ==
[~2020-09-02 14:58] MED LIST changes: -ISOVUE-370 76%-LOCM 1 ML ONE; +Iopamidol-370 76% 500 ML 1 ML ONE
[2020-09-02 15:32] LABS: #Basophils 0.1 thou/uL (0.0-0.2); #Eosinphils 0.1 thou/uL (0.0-0.7); #Lymphocytes 4.3 thou/uL (1.20-3.40); #Monocytes 0.6 thou/uL (0.11-0.59); #Neutrophils 8.9 thou/uL (1.40-6.50); %Basophils 0.8 % (0.0-1.0); %Eosinophils 0.6 % (0.0-10.0); %Lymphocytes 30.9 % (21.0-51.0); %Monocytes 4.1 % (0.0-10.0); %Neutrophils 63.6 % (42.0-75.0); Hemoglobin 17.4 g/dL (14.0-18.0); Mean Corpuscular HGB CONC 34.4 g/dL (32.0-36.0); Mean Corpuscular Hemoglobin 31.6 pg (27.0-31.0); Mean Corpuscular Volume 91.8 fL (78.0-98.0); Mean Platelet Volume 6.9 fL (7.4-10.4); Platelet Count 350 thou/uL (130-400); RBC Distribution Width 14.2 % (11.5-14.5); White Blood Cell (WBC) Count 14.1 thou/uL (4.8-10.8)
[2020-09-02 15:53] LABS: ALT (SGPT) 37 U/L (8-55); AST (SGOT) 25 U/L (5-34); Albumin 4.6 g/dL (3.5-5.0); Alkaline Phosphatase 77 U/L (40-110); Anion Gap 14 mmol/L (10-20); BUN (Urea Nitrogen) 11 mg/dL (8.9-20.6); Bilirubin, Total 0.7 mg/dL (0.2-1.2); Calc. Creatinine Clearance 0 mL/min (70-130); Calcium 10.1 mg/dL (7.8-10.44); Carbon Dioxide 23 mmol/L (22-29); Chloride 105 mmol/L (98-107); Glucose 128 mg/dL (70-105); Potassium 3.3 mmol/L (3.5-5.1); Protein, Total 8.6 g/dL (6.0-8.3); Sodium 139 mmol/L (136-145)
[2020-09-02 16:18] LABS: Acetaminophen Less than 6.0 mcg/mL (10.0-30.0); Alcohol Less than 10 mg/dL (Less than 10); Salicylate Less than 8.0 mg/dL (15.0-30.0)
[2020-09-02 17:21] LABS: Medtox Reader # READER 4
[2020-09-02 17:22] LABS: Amphetamine Not Detected (NotDetected); Barbiturates Screen Not Detected (NotDetected); Benzodiazepine Screen Not Detected (NotDetected); Cocaine Metabolite Screen Not Detected (NotDetected); Medtox Control Line Valid? VALID (VALID); Methadone Not Detected (NotDetected); Methamphetamine Not Detected (NotDetected); Opiate Screen Not Detected (NotDetected); Oxycodone Screen Not Detected (NotDetected); Phencyclidine (PCP) Not Detected (NotDetected); THC/Cannabinoid Screen Detected (NotDetected); Tricyclic Screen Not Detected (NotDetected)
== END 2020-09-02 18:53 | disposition home or self-care (01) ==
LOC: ERS 14:58
DX: F41.1 Generalized anxiety disorder (principal); I10 Essential (primary) hypertension; I25.2 Old myocardial infarction
CPT/HCPCS: 71045; 71275; 80053; 80306; 80307; 83880; 84443; 84484; 85025; 93005; Q9967